=== PATIENT | female | born 1945 | race Caucasian/White ===

== ENCOUNTER → 2016-03-26 | Outpatient (CLI) | payer OTHER ==
--- NOTE | 2016-04-05 12:52 | MM ---
Reason for exam: clinical finding. Last mammogram was performed 1 year ago. History: Patient is postmenopausal. Taking estrogen for 4 years. Physical Findings: Nurse Summary: 0.5cm nodule in the right breast at 10 o'clock (nurse radha). MG 3D Diag Mammo W/Cad ANIKA Bilateral CC and MLO view(s) were taken. Prior study comparison: March 22, 2015, mammogram, performed at [facility]. February 26, 2014, mammogram, performed at [facility]. The breast tissue is heterogeneously dense. This may lower the sensitivity of mammography. Finding: There are typically benign skin calcifications. There is no discrete abnormality including area of concern. These results were verbally communicated with the patient on 04/05/16. ASSESSMENT: Incomplete: need additional imaging evaluation, BI-RAD 0 RECOMMENDATION: Ultrasound of the right breast. Manage patient on a clinical basis.
--- NOTE | 2016-04-05 12:53 | USB ---
Reason for exam: additional evaluation requested from abnormal screening. History: Patient is postmenopausal. Taking estrogen for 4 years. US Breast Limited RT Right breast ultrasound demonstrates no cystic or solid lesion seen. These results were verbally communicated with the patient on 04/05/16. ASSESSMENT: Benign, BI-RAD 2 RECOMMENDATION: Routine screening mammogram of both breasts in 1 year. Manage patient on a clinical basis.
== END | disposition home or self-care (01) ==
LOC: RADMAMWWP 14:25
PROVIDERS: ATTEND Family Medicine
DX: R92.8 Other abnormal and inconclusive findings on diagnostic imaging of breast (principal); N63 Unspecified lump in breast
CPT/HCPCS: 76642; G0204; G0279

== ENCOUNTER → 2016-08-10 | Outpatient (CLI) | payer MEDICARE, OTHER ==
--- NOTE | 2016-08-10 11:37 | US ---
EXAMINATION TYPE: US thyroid st tissue head/neck DATE OF EXAM: 08/10/2016 COMPARISON: Ultrasound 10/02/2015 CLINICAL HISTORY: E04.1 THYROID NODULE. GLAND SIZE: Right Lobe: 3.5 x 1.2 x 1.3 cm Overall Parenchyma: heterogenous Left Lobe: 4.0 x 1.9 x 1.4 cm Overall Parenchyma: heterogeneous Isthmus Thickness: 0.3 cm NODULES RIGHT: # of nodules measured on right: 0 LEFT: # of nodules measured on left: 1 1. 1.7 X 1.3 x 1.0 cm isoechoic solid nodule at the mid pole with well-defined margins; . This nod ule is taller than wide and shows intranodular vascularity. Prior size: only FNA done here, no prior US. Size on the FNA films is 1.8 x 1.1 x 1.1 cm. ISTHMUS: # of nodules measured in the isthmus: 0 Bilateral neck scanned, no evidence of lymphadenopathy. Bilaterally there is a subcentimeter cystic a guanaco. IMPRESSION: 1. Stable nodule left lobe thyroid
== END | disposition home or self-care (01) ==
LOC: RADUSWWP 10:53
PROVIDERS: ATTEND Otolaryngology
DX: E04.1 Nontoxic single thyroid nodule (principal)
CPT/HCPCS: 76536

== ENCOUNTER → 2017-09-16 | Outpatient (CLI) | payer MEDICARE, OTHER ==
[2017-09-16 11:49] LABS: Basophils % (A) 0 %; Eosinophils # (A) 0.1 k/uL (0-0.7); Eosinophils % (A) 1 %; HCT 39.9 % (34.0-46.0); HGB 13.7 gm/dL (11.4-16.0); Lymphocytes # (A) 1.4 k/uL (1.0-4.8); Lymphocytes % (A) 18 %; MCH 31.8 pg (25.0-35.0); MCHC 34.3 g/dL (31.0-37.0); MCV 92.7 fL (80.0-100.0); Mean Platelet Volume 6.5; Monocytes # (A) 0.5 k/uL (0-1.0); Monocytes % (A) 6 %; Neutrophils # (A) 5.6 k/uL (1.3-7.7); Neutrophils % (A) 73 %; Platelet Count 295 k/uL (150-450); RDW 12.9 % (11.5-15.5); WBC 7.7 k/uL (3.8-10.6)
[2017-09-16 12:37] LABS: Erythrocyte Sedimentation Rate 11 mm/hr (0-20)
== END | disposition home or self-care (01) ==
LOC: LABWHC1 10:35
PROVIDERS: ATTEND Physical Medicine & Rehabilitation
DX: M50.121 Cervical disc disorder at C4-C5 level with radiculopathy (principal); M75.42 Impingement syndrome of left shoulder; M43.16 Spondylolisthesis, lumbar region; M51.17 Intervertebral disc disorders with radiculopathy, lumbosacral region; M47.27 Other spondylosis with radiculopathy, lumbosacral region; M54.5 Low back pain
CPT/HCPCS: 36415; 85025; 85652; 86140

== ENCOUNTER → 2017-11-11 | Outpatient (CLI) | payer OTHER ==
--- NOTE | 2017-11-12 23:41 | CT ---
EXAMINATION TYPE: CT chest wo/w con DATE OF EXAM: 11/11/2017 COMPARISON: Prior chest CT October 02, 2015 and older studies. HISTORY: Lung nodules CT DLP: 511.1 mGycm. Automated Exposure Control for Dose Reduction was Utilized. TECHNIQUE: CT scan of the thorax is performed following without and with IV Contrast, patient inject ed with 80 mL of Isovue 300. FINDINGS: LUNGS: There is stable chest wall based lipoma posterolateral right upper lobe measuring 1.8 cm axial image 22 that is benign. There is however new 10 x 9 mm nodule in the superior aspect right lower lo be axial image 30. There is left basilar pleural thickening with associated left basilar linear atele ctasis or scarring now identified. No pleural effusion or pneumothorax is seen bilaterally. Tracheobr onchial tree is patent. MEDIASTINUM: There are no greater than 1 cm hilar or mediastinal lymph nodes. No significant perica rdial effusion is seen. Heart size is upper limits of normal. OTHER: Surgical clips from left-sided nephrectomy partially imaged. Gsjc-[id number]-ecrnldsz multilevel spurr ing in the thoracic spine is present. IMPRESSION: New 10 x 9 mm right-sided pulmonary nodule. Further investigation with PET CT and/or imag ing guided biopsy should be considered to exclude neoplasm.
== END | disposition home or self-care (01) ==
LOC: RADCTMAIN 14:59
DX: R91.1 Solitary pulmonary nodule (principal)
CPT/HCPCS: 82565; 84520; 71270; Q9967

== ENCOUNTER → 2017-11-11 | Outpatient (CLI) | payer MEDICARE, OTHER ==
--- NOTE | 2017-11-14 12:37 | MM ---
Reason for exam: screening (asymptomatic). Last mammogram was performed 1 year and 8 months ago. History: Patient is postmenopausal. Reductions of both breasts. Taking estrogen for 4 years. Physical Findings: A clinical breast exam by your physician is recommended on an annual basis and results should be correlated with mammographic findings. MG 3D Screening Mammo W/Cad Bilateral CC and MLO view(s) were taken. Prior study comparison: March 26, 2016, bilateral MG 3d diag mammo w/cad ANIKA. March 22, 2015, mammogram, performed at [facility]. The breast tissue is heterogeneously dense. This may lower the sensitivity of mammography. Stable benign calcifications. There is no discrete abnormality. No significant changes when compared with prior studies. ASSESSMENT: Benign, BI-RAD 2 RECOMMENDATION: Routine screening mammogram of both breasts in 1 year.
== END ==
LOC: RADMAMWWP 09:41
PROVIDERS: ATTEND Nurse Practitioner Acute Care
DX: Z12.31 Encounter for screening mammogram for malignant neoplasm of breast (principal)
CPT/HCPCS: 77063; 77067

== ENCOUNTER → 2017-12-10 | Outpatient (CLI) | payer OTHER ==
--- NOTE | 2017-12-10 13:50 | PE ---
EXAMINATION TYPE: PET CT fusion skull to thigh DATE OF EXAM: 12/10/2017 COMPARISON: Chest CT November 11, 2017 and older chest CTs from [address] abdomen and pelvis December 30, 2014. HISTORY: Solitary pulmonary nodule right lung. TECHNIQUE: Following the intravenous administration of 12.475 mCi of F-18 FDG, whole body images are performed from the skull base to the midthigh. Images are reviewed on the computer in the coronal, axial, and sagittal planes. Reconstructed rotating images are created on independent workstation and reviewed on the computer. A noncontrast CT is performed in conjunction with the PET scan. SCAN: Initial Scan FINDINGS: SKULL BASE AND NECK: No suspicious hypermetabolic uptake is seen. CHEST, MEDIASTINUM, AND HILAR REGION: There is persistent roughly 10 x 8 mm new groundglass superior aspect right lower lobe axial image 87 that is ametabolic. No suspicious hypermetabolic uptake is pre sent in the thorax. ABDOMEN AND PELVIS: No suspicious hypermetabolic uptake is seen. OSSEOUS STRUCTURES: No suspicious hypermetabolic uptake is seen. OTHER CT: Coronary artery calcification is present which is noted marker for coronary artery disease. There is redemonstration of roughly 1.8 cm benign chest wall lipoma axial image 81. Surgical clips from left-sided nephrectomy are redemonstrated. There is persistent ventral wall hernia containing fat and tiny mesenteric vessels in the midline axi al image 168. Diverticula in the sigmoid colon are redemonstrated. Some multilevel spurring in the thoracolumbar spine is present. IMPRESSION: No suspicious hypermetabolic uptake in new roughly 10 mm groundglass nodule to suggest ma lignancy. However given new finding from [address] follow-up in 6-12 months ti me to ensure nongrowth and/or reassess.
== END | disposition home or self-care (01) ==
LOC: RADPETMAIN 07:21
PROVIDERS: ATTEND Internal Medicine Critical Care Medicine
DX: R91.1 Solitary pulmonary nodule (principal)
CPT/HCPCS: 78815; A9552

== ENCOUNTER → 2017-12-29 | Outpatient (CLI) | payer MEDICARE, OTHER ==
--- NOTE | 2017-12-29 17:30 | CONS ---
CONSULTATION DATE OF SERVICE: 12/29/2017 This patient is a 72-year-old lady who has been evaluated in the sleep center for possible obstructive sleep apnea-hypopnea syndrome. HISTORY OF PRESENT ILLNESS/SLEEP-WAKE EVALUATION: Patient has had her symptoms for about one year. She snores and wakes up from sleep up to 5 times with episodes of gasping for air. Her sleep schedule on weekdays is usually from around 9:30 p.m. until 5 a.m. and on weekends from around 9:30 or 10 p.m. until 6:30 a.m. Usually she does not have any problem with falling asleep. She does not have a TV in the bedroom. She sleeps with her with snoring, possible witnessed episodes of stopped breathing during sleep. In the morning she wakes up tired, falling asleep during the day. Gregory Sleepiness Scale is significantly increased at 17. The patient feels sleepy while she is driving. She may take one nap a day around 2 or 3 p.m. Sometimes she may see dreams while closing her eyes while falling asleep. No history of sleep paralysis or cataplexy. Usually she feels restored after the naps during the day. Her snoring is very loud. No clear history of kicking at night. PAST MEDICAL HISTORY: Positive for: 1. Hypertension. 2. Hypothyroidism. 3. Neck pain. 4. Leg cramps. PAST SURGICAL HISTORY: 1. Appendectomy. 2. Total hysterectomy in 1994. 3. 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 4. Right side rotator cuff surgery. 5. Abdominal surgery for hernia repair and cosmetic reasons. MEDICATIONS: 1. Synthroid. 2. Metoprolol. 3. Hydrochlorothiazide. 4. Cymbalta. 5. Probiotics. 6. AcipHex. 7. Vitamin D. 8. Magnesium. 9. Calcium. 10.Lysine. SOCIAL HISTORY: Positive for smoking for about 35 pack/years. Quit around 20 years ago. Alcohol consumption occasional. FAMILY HISTORY: Hypertension, hyperlipidemia, arthritis, cancer, snoring, lung problems, acid reflux, thyroid problems, restless legs. REVIEW OF SYSTEMS: Multiple awakenings from sleep with gasping for air. Significant sleepiness during the day. PHYSICAL EXAMINATION: GENERAL: A pleasant lady without distress. VITAL SIGNS: BP 128/68, HR 71, RR 16, height 5 feet 0 inches, weight 156, body mass index 30.4, temperature 98.2, oxygen saturation at room air 94%. HEENT: PERRLA, EOMI. Evaluation of oropharynx showed tongue protrudes midline. Moderately low position of soft palate. NECK: Supple. No JVD. Thyroid is not palpable. Circumference 15 inches. LUNGS: Clear to percussion and to auscultation. Good air exchange. No wheezing or rhonchi. HEART: S1, S2 regular. No murmurs, gallops or rubs. ABDOMEN: Slightly obese. EXTREMITIES: No clubbing or cyanosis. ENVIRONMENTAL CONSULTANT: Awake, alert, and oriented X3. Cranial nerves 2 to 7 intact. There is no fasciculation or atrophy. noted. No focal deficits observed. IMPRESSION: 1. Snoring, multiple awakenings from sleep with gasping for air, moderately low position of soft palate, sleepiness; obstructive sleep apnea-hypopnea syndrome. 2. Significant excessive daytime sleepiness. Gregory Sleepiness Scale is 17. Questionable positive history of hypnagogic hallucinations. Differential diagnosis would include hypersomnia. 3. Hypertension. 4. Hypothyroidism. 5. History of neck pain. 6. Leg cramps. 7. Status post appendectomy. 8. Status post total hysterectomy in 1994. 9. Status post left-sided nephrectomy for kidney donation. 10.Status post right side rotator cuff surgery. 11.Status post abdominal surgery for cosmetic reasons and hernia repair. 12.Status post 35 pack/years of smoking; quit 20 years ago. PLAN: 1. Polysomnography for evaluation of patient's breathing during sleep. 2. CPAP/BiPAP titration if sleep study confirms obstructive sleep apnea-hypopnea syndrome. 3. Preferable position during sleep on the side. 4. No driving if patient feels any sleepiness. 5. I will see patient for follow up visit to explain results of testing and following plan. Thank you very much for referring this patient for consultation. Sincerely, Wan Almaguer MD, PhD, FAASM Diplomat of [employer] Aoc Director Intelligence Officer of [facility] [place] MMODL / URSZULAN: [id number] /
== END ==
LOC: SLEEP 11:23
PROVIDERS: ATTEND Internal Medicine
DX: G47.33 Obstructive sleep apnea (adult) (pediatric) (principal); I10 Essential (primary) hypertension; E03.9 Hypothyroidism, unspecified; M54.2 Cervicalgia; G47.62 Sleep related leg cramps; Z90.49 Acquired absence of other specified parts of digestive tract; Z90.710 Acquired absence of both cervix and uterus; Z90.5 Acquired absence of kidney; Z98.890 Other specified postprocedural states; Z87.891 Personal history of nicotine dependence; Z99.89 Dependence on other enabling machines and devices; Z79.899 Other long term (current) drug therapy
CPT/HCPCS: 99211

== ENCOUNTER → 2018-04-13 | Outpatient (CLI) | payer MEDICARE, OTHER ==
--- NOTE | 2018-04-13 17:23 | PN ---
PROGRESS NOTE DATE OF SERVICE: 04/13/2018 72-year-old lady has been followed in Sleep Center for treatment of obstructive sleep apnea-hypopnea syndrome. Recently, patient had polysomnogram which showed that she has obstructive sleep apnea- hypopnea syndrome with apnea-hypopnea index 9.2, and REM sleep 35.6 with oxygen saturation of 82%. When the patient had CPAP titration, subsequently was started on treatment with CPAP. She feels much better with the CPAP. No sleepiness during the day. She sleeps better during the night. Hendley Sleepiness Scale today is 2. I checked her CPAP unit usage is 26/30 nights and 22/30 nights more than 4 hours, average usage is 6.1 hour. Pressure in the range of 5-15. Most of the time pressure 12.6, leak is 6 L/minute which is normal range. Apnea-hypopnea index for the last night. 3.3, average for the last month, 7.1. MEDICATION: Synthroid, metoprolol hydrochlorothiazide, Cymbalta, AcipHex. Vitamin D. Calcium, magnesium. PHYSICAL EXAM: Patient in no distress. BP 149/71, HR 81, RR 16, weight 162, temp 97.5, oxygen saturation at room air 96%. Oropharynx low position of soft palate, Mallampati 3. Neck Supple, no JVD. Thyroid is not palpable. LUNGS Clear to percussion and to auscultation. Good air exchange. No wheezing or rhonchi. HEART S1, S2 regular. No murmurs, gallops, or rubs. ABDOMEN: Soft and nontender. Bowel sounds are present. No organomegaly appreciated. EXTREMITIES No clubbing or cyanosis. ROTOGRAVURE PRESS OPERATOR Awake, alert, and oriented X3. Cranial nerves 2 to 7 intact. There is no fasciculation or atrophy. noted. No focal deficits observed. IMPRESSION: 1. Obstructive sleep apnea-hypopnea syndrome. Patient demonstrated great compliance with treatment, benefitting from treatment. 2. Hypertension. 3. Hypothyroidism. 4. History of neck pain. 5. History of leg cramps. 6. Status post appendectomy. 7. Status post total hysterectomy. 8. Status post left kidney nephrectomy for kidney donation. 9. Status post right-sided rotator cuff surgery. 10.Status post abdominal surgery for cosmetic reasons and hernia repair. PLAN: 1. Patient will continue to use CPAP equipment every night for the whole night. 2. Sleep hygiene with regular time in bed for at least 8 hours. 3. No driving if feeling any sleepiness. 4. We will maintain all necessary CPAP prescription related to mask, tube, filters. Thank you very much for allowing me to participate in management of your patient. Sincerely, Wan Almaguer MD, PhD, FAASM Diplomat of [employer] [place] [employer] [place] [employer] Job Analyst of [facility] [place] MMODL / URSZULAN: [id number] /
== END ==
LOC: SLEEP 14:51
PROVIDERS: ATTEND Internal Medicine
DX: G47.33 Obstructive sleep apnea (adult) (pediatric) (principal); I10 Essential (primary) hypertension; E03.9 Hypothyroidism, unspecified; M54.2 Cervicalgia; G47.62 Sleep related leg cramps; Z90.89 Acquired absence of other organs; Z90.710 Acquired absence of both cervix and uterus; Z90.5 Acquired absence of kidney; Z98.890 Other specified postprocedural states; Z99.89 Dependence on other enabling machines and devices; Z79.899 Other long term (current) drug therapy

== ENCOUNTER → 2018-06-08 | Outpatient (CLI) | payer MEDICARE, OTHER ==
--- NOTE | 2018-06-08 15:06 | CT ---
EXAMINATION TYPE: CT chest w con DATE OF EXAM: 06/08/2018 COMPARISON: 11/11/2017 HISTORY: Solitary lung nodule CT DLP: 565 mGycm, Automated exposure control for dose reduction was used. CONTRAST: Performed injected with 80 mL of Isovue 300. TECHNIQUE: Axial images were obtained at 5 mm thick sections. Reconstructed images are reviewed on t AT[employer] Access computer in the coronal plane. FINDINGS: There is a 0.6 cm hypodensity within the posterior inferior left lobe thyroid. Thyroid is o therwise unremarkable. There appears to be some bulging subpleural fat in the posterior left upper lung field. This is very low density. This was present previously. No the previous nodule in the posterior right midlung is not evident. Episode 2 punctate residual den sities may remain present. Series 3 image 29. Follow-up exam in 6 months is recommended to reevaluate this finding. No enlarged mediastinal or hilar adenopathy is evident. The ascending aorta diameter at the level o f the main pulmonary artery is 2.6 cm. The main pulmonary artery diameter at the bifurcation is 2.[address] sections are obtained through the upper abdomen. There appears be a prior left nephrectomy . Some malrotation of the right kidney may be present. IMPRESSIONS: 1. Previous nodule appears to have nearly completely resolved with 2 punctate residual densities at t his prior nodule location. Follow-up exam in 6 months is recommended to reevaluate for stability. 2. Hypodensity within the inferior left lobe thyroid. This could be evaluated with ultrasound.
== END ==
LOC: RADCTMAIN 11:22
PROVIDERS: ATTEND Internal Medicine Critical Care Medicine
DX: R93.89 Abnormal findings on diagnostic imaging of other specified body structures (principal); Z88.0 Allergy status to penicillin; Z88.1 Allergy status to other antibiotic agents; Z88.2 Allergy status to sulfonamides; Z88.8 Allergy status to other drugs, medicaments and biological substances
CPT/HCPCS: 82565; 84520; 71260; 36415; Q9967

== ENCOUNTER 2018-10-28 14:54 | Emergency (ER) | payer OTHER ==
[2018-10-28] MEDS ORDERED: ASPIRIN 81 MG PO STA (15:06)
[2018-10-28] MEDS ORDERED: NITROGLYCERIN OINT 1 INCH/GM PACKET TOPICAL STA (15:06)
--- NOTE | 2018-10-28 15:09 | ED ---
General Adult HPI - General Stated complaint: CHest Pain Time Seen by Provider: 10/28/18 15:00 Source: patient, EMS, RN notes reviewed Mode of arrival: EMS Limitations: no limitations - History of Present Illness Initial comments: Patient is a pleasant 73-year-old female presenting to the emergency department with complaints of chest discomfort. Onset of symptoms was 2 days ago after running. Discomfort was fairly stable. Patient has chronic dyspnea however that is unchanged. Discomfort is described as an ache and is moderate. Discomfort did radiate towards the neck and left shoulder. Symptoms resolved with aspirin at urgent care prior to arrival. Patient previously took ibuprofen without improvement of symptoms. No associated nausea or diaphoresis. - Related Data Home Medications Medication Instructions Recorded Confirmed Ergocalciferol [Vitamin D2 50,000 unit PO Q14D 03/13/14 10/07/15 (DRISDOL)] Lysine 1,000 mg PO DAILY 01/21/15 10/02/15 Progesterone,Micronized 100 mg PO HS 01/21/15 10/07/15 [Progesterone] Metoprolol Tartrate [Lopressor] 12.5 mg PO DAILY 09/20/15 10/07/15 Levothyroxine Sodium [Synthroid] 68.5 mcg PO DAILY 10/01/15 10/07/15 Estrogen Pellet INTRADERMA Q120D 10/06/15 10/07/15 Testosterone [Testopel] 75 mg INTRADERMA Q120D 10/06/15 10/07/15 Hydrochlorothiazide [Hydrodiuril] 25 mg PO DAILY 10/28/18 10/28/18 Previous Rx's Medication Instructions Recorded Cyclobenzaprine [Flexeril] 10 mg PO TID PRN #12 tablet 10/28/18 Allergies Allergy/AdvReac Type Severity Reaction Status Date / Time cephalexin monohydrate Allergy Rash/Hives Verified 10/28/18 15:10 [From Keflex] ezetimibe [From Zetia] Allergy Rash/Hives Verified 10/28/18 15:10 hydromorphone HCl Allergy Anaphylaxis, Verified 10/28/18 15:10 [From Dilaudid] DYSPNEA ketorolac tromethamine Allergy Rash/Hives Verified 10/28/18 15:10 [From Toradol] Penicillins Allergy Rash/Hives Verified 10/28/18 15:10 Sshhwqw-Oax-Eqj Reductase Allergy MUSCLE PAIN Verified 10/28/18 15:10 Inhibitor Sulfa (Sulfonamide Allergy Rash/Hives Verified 10/28/18 15:10 Antibiotics) tomato Allergy Rash/Hives Verified 10/28/18 15:11 tree nut Allergy Rash/Hives Verified 10/28/18 15:10 VICRYL SUTURES Allergy PAIN AT Uncoded 10/28/18 15:10 INCISION SITE. Review of Systems ROS Statement: Those systems with pertinent positive or pertinent negative responses have been documented in the HPI. ROS Other: All systems not noted in ROS Statement are negative. Constitutional: Denies: fever Eyes: Denies: eye pain ENT: Denies: ear pain Respiratory: Reports: as per HPI. Denies: cough Cardiovascular: Reports: chest pain Endocrine: Denies: fatigue Gastrointestinal: Denies: abdominal pain Genitourinary: Denies: dysuria Musculoskeletal: Denies: back pain Skin: Denies: rash Neurological: Denies: weakness Past Medical History Past Medical History: GERD/Reflux, Osteoarthritis (OA), Thyroid Disorder Additional Past Medical History / Comment(s): gluten intolerance. tree nut allergy-rash History of Any Multi-Drug Resistant Organisms: None Reported Past Surgical History: Appendectomy, Hysterectomy, Orthopedic Surgery Additional Past Surgical History / Comment(s): DONATED LEFT KIDNEY. breast reduction, abdominoplasty Past Anesthesia/Blood Transfusion Reactions: No Reported Reaction Smoking Status: Former smoker General Exam Limitations: no limitations General appearance: alert, in no apparent distress Head exam: Present: atraumatic Eye exam: Present: normal appearance, PERRL ENT exam: Present: normal oropharynx Neck exam: Present: normal inspection Respiratory exam: Present: normal lung sounds bilaterally. Absent: chest wall tenderness Cardiovascular Exam: Present: regular rate, normal rhythm Expanded Peripheral pulses: 2+: Radial (R), Radial (L), Dorsalis Pedis (R), Dorsalis Pedis (L) GI/Abdominal exam: Present: soft. Absent: tenderness Extremities exam: Present: normal inspection. Absent: pedal edema, calf tenderness Neurological exam: Present: alert Psychiatric exam: Present: normal affect, normal mood Skin exam: Present: normal color Course Vital Signs 10/28/18 10/28/18 15:11 15:17 Temperature 97.6 F Pulse Rate 62 Pulse Rate [ 64 Outbound Sales Agent ] Respiratory 18 Rate Blood Pressure 178/81 O2 Sat by Pulse 96 Oximetry EKG Findings - EKG Comments: EKG Findings:: Normal sinus rhythm 62. DC 140. QRS 132. QT 468. QTC 475. Left axis. Left bundle branch block. No acute ST change. Medical Decision Making - Medical Decision Making Patient reevaluated and resting comfortably in bed. Case was discussed with Dr. Zhang who agreed with admission. Patient and family updated. Patient has plans to go to [facility] and refuses admission. Patient is updated regarding limitations and testing including limitation of troponin. Patient is made aware that heart attack has not been ruled out. Patient is also made aware that heart attack could occur in the near future. Patient is also aware there could be other causes of her chest discomfort not evident at this time. Patient does t hem straight medical decision making. Patient will leave AGAINST MEDICAL ADVICE. Patient is agreeable to close follow-up with cardiology and aspirin daily. Patient is also agreeable to go to the closest ER if symptoms reoccur. Patient requests prescription for muscle relaxer - Lab Data Result diagrams: 10/28/18 15:12 10/28/18 15:12 Lab Results 10/28/18 10/28/18 10/28/18 Range/Units 15:12 15:12 15:12 WBC 7.1 (3.8-10.6) k/uL RBC 4.53 (3.80-5.40) m/uL Hgb 13.8 (11.4-16.0) gm/dL Hct 41.3 (34.0-46.0) % MCV 91.1 (80.0-100.0) fL MCH 30.4 (25.0-35.0) pg MCHC 33.4 (31.0-37.0) g/dL RDW 14.3 (11.5-15.5) % Plt Count 272 (150-450) k/uL Neutrophils % 69 % Lymphocytes % 21 % Monocytes % 5 % Eosinophils % 3 % Basophils % 1 % Neutrophils # 4.9 (1.3-7.7) k/uL Lymphocytes # 1.5 (1.0-4.8) k/uL Monocytes # 0.4 (0-1.0) k/uL Eosinophils # 0.2 (0-0.7) k/uL Basophils # 0.1 (0-0.2) k/uL PT 9.6 (9.0-12.0) sec INR 0.9 (<1.2) APTT 26.4 (22.0-30.0) sec D-Dimer 0.28 (<0.60) mg/L FEU Sodium 141 (137-145) mmol/L Potassium 3.7 (3.5-5.1) mmol/L Chloride 105 (98-107) mmol/L Carbon Dioxide 27 (22-30) mmol/L Anion Gap 9 mmol/L BUN 27 H (7-17) mg/dL Creatinine 1.03 (0.52-1.04) mg/dL Est GFR (CKD-EPI)AfAm 63 (>60 ml/min/1.73 sqM) Est GFR (CKD-EPI)NonAf 55 (>60 ml/min/1.73 sqM) Glucose 86 (74-99) mg/dL Calcium 9.2 (8.4-10.2) mg/dL Magnesium 1.6 (1.6-2.3) mg/dL Total Bilirubin 0.3 (0.2-1.3) mg/dL AST 33 (14-36) U/L ALT 36 (9-52) U/L Alkaline Phosphatase 117 (38-126) U/L Creatine Kinase 42 (30-135) U/L Troponin I (0.000-0.034) ng/mL NT-Pro-B Natriuret Pep pg/mL Total Protein 6.6 (6.3-8.2) g/dL Albumin 4.0 (3.5-5.0) g/dL 10/28/18 10/28/18 Range/Units 15:12 15:12 WBC (3.8-10.6) k/uL RBC (3.80-5.40) m/uL Hgb (11.4-16.0) gm/dL Hct (34.0-46.0) % MCV (80.0-100.0) fL MCH (25.0-35.0) pg MCHC (31.0-37.0) g/dL RDW (11.5-15.5) % Plt Count (150-450) k/uL Neutrophils % % Lymphocytes % % Monocytes % % Eosinophils % % Basophils % % Neutrophils # (1.3-7.7) k/uL Lymphocytes # (1.0-4.8) k/uL Monocytes # (0-1.0) k/uL Eosinophils # (0-0.7) k/uL Basophils # (0-0.2) k/uL PT (9.0-12.0) sec INR (<1.2) APTT (22.0-30.0) sec D-Dimer (<0.60) mg/L FEU Sodium (137-145) mmol/L Potassium (3.5-5.1) mmol/L Chloride (98-107) mmol/L Carbon Dioxide (22-30) mmol/L Anion Gap mmol/L BUN (7-17) mg/dL Creatinine (0.52-1.04) mg/dL Est GFR (CKD-EPI)AfAm (>60 ml/min/1.73 sqM) Est GFR (CKD-EPI)NonAf (>60 ml/min/1.73 sqM) Glucose (74-99) mg/dL Calcium (8.4-10.2) mg/dL Magnesium (1.6-2.3) mg/dL Total Bilirubin (0.2-1.3) mg/dL AST (14-36) U/L ALT (9-52) U/L Alkaline Phosphatase (38-126) U/L Creatine Kinase (30-135) U/L Troponin I <0.012 (0.000-0.034) ng/mL NT-Pro-B Natriuret Pep 110 pg/mL Total Protein (6.3-8.2) g/dL Albumin (3.5-5.0) g/dL - Radiology Data Radiology results: image reviewed Disposition Clinical Impression: Chest pain Disposition: Left Against Medical Advice Instructions (If sedation given, give patient instructions): Chest Pain (ED) Additional Instructions: Aspirin daily. Please follow-up with cardiology Tuesday, number provided. Please also follow-up to primary care physician Tuesday. Return for increased pain, shortness of breath, sweating, nausea, lightheadedness, worsening symptoms or any other concerns. You are leaving AGAINST MEDICAL ADVICE. Prescription sent to [facility] Prescriptions: Cyclobenzaprine [Flexeril] 10 mg PO TID PRN #12 tablet PRN Reason: Pain Is patient prescribed a controlled substance at d/c from ED?: No Referrals: [facility],Clinic [Primary Care Provider] - 1-2 days Time of Disposition: 16:35
[2018-10-28 15:17] VITALS: RESP 18
[2018-10-28 15:27] LABS: Basophils # (A) 0.1 k/uL (0-0.2); Basophils % (A) 1 %; Eosinophils # (A) 0.2 k/uL (0-0.7); Eosinophils % (A) 3 %; HCT 41.3 % (34.0-46.0); HGB 13.8 gm/dL (11.4-16.0); Lymphocytes # (A) 1.5 k/uL (1.0-4.8); Lymphocytes % (A) 21 %; MCH 30.4 pg (25.0-35.0); MCHC 33.4 g/dL (31.0-37.0); MCV 91.1 fL (80.0-100.0); Monocytes # (A) 0.4 k/uL (0-1.0); Monocytes % (A) 5 %; Neutrophils # (A) 4.9 k/uL (1.3-7.7); Neutrophils % (A) 69 %; Platelet Count 272 k/uL (150-450); RBC 4.53 m/uL (3.80-5.40); RDW 14.3 % (11.5-15.5); WBC 7.1 k/uL (3.8-10.6)
[2018-10-28 15:36] LABS: Calcium 9.2 mg/dL (8.4-10.2); Magnesium 1.6 mg/dL (1.6-2.3); Potassium 3.7 mmol/L (3.5-5.1); Total Bilirubin 0.3 mg/dL (0.2-1.3); Total Protein 6.6 g/dL (6.3-8.2)
[2018-10-28 15:40] LABS: D-Dimer 0.28 mg/L FEU (<0.60); INR 0.9 (<1.2); Partial Thromboplastin Time 26.4 sec (22.0-30.0); Prothrombin Time 9.6 sec (9.0-12.0)
[2018-10-28] MEDS ORDERED: CYCLOBENZAPRINE 10MG STARTER 3 TAB BTL PO STA (16:40)
[2018-10-28 16:49] VITALS: BP 116/74; PULSE 74; TEMP 97.8
--- NOTE | 2018-10-28 21:51 | XR ---
EXAMINATION TYPE: XR chest 2V DATE OF EXAM: 10/28/2018 COMPARISON: CT chest 06/08/2018 HISTORY: Chest pain TECHNIQUE: Frontal and lateral views of the chest are obtained. FINDINGS: Pleural-based opacity projecting between the fifth and sixth posterior ribs on the right c orrelates with bulging subpleural fat noted on comparative chest CT. There is no focal air space opac ity, pleural effusion, or pneumothorax seen. The cardiac silhouette size is within normal limits. The osseous structures are intact. IMPRESSION: No acute cardiopulmonary process.
== END 2018-10-28 16:47 | disposition left against medical advice (07) ==
LOC: EC 14:54
DX: R07.89 Other chest pain (principal); R06.00 Dyspnea, unspecified; Z53.29 Procedure and treatment not carried out because of patient's decision for other reasons; E07.9 Disorder of thyroid, unspecified; Z79.890 Hormone replacement therapy; Z79.899 Other long term (current) drug therapy; Z88.1 Allergy status to other antibiotic agents; Z88.0 Allergy status to penicillin; Z88.2 Allergy status to sulfonamides; Z88.5 Allergy status to narcotic agent; Z88.8 Allergy status to other drugs, medicaments and biological substances; Z91.018 Allergy to other foods; Z91.048 Other nonmedicinal substance allergy status; Z87.891 Personal history of nicotine dependence; Z52.4 Kidney donor
CPT/HCPCS: 36415; 71046; 80053; 82550; 83735; 83880; 84484; 85025; 85379; 85610; 85730; 93005; 99285

== ENCOUNTER → 2018-12-19 | Outpatient (CLI) | payer MEDICARE, OTHER ==
--- NOTE | 2018-12-19 12:59 | CT ---
EXAMINATION TYPE: CT chest w con DATE OF EXAM: 12/19/2018 COMPARISON: 06/08/2018 and 12/10/2017 HISTORY: 73-year-old female Rt lung lesion, follow-up abnormal CT chest TECHNIQUE: Contiguous axial scanning of the chest after the administration of 80 mL of Isovue 300. C oronal/sagittal reconstructions performed. CT DLP: 359.3mGycm. Automatic exposure control utilized for a dose reduction. FINDINGS: The limits of normal in size without pericardial effusion. Aorta normal caliber with mild atherosclerotic arch calcifications and conventional arch vessel branc constance anatomy. No thoracic lymphadenopathy by CT size criteria. The left kidney is surgically absent and the visualized upper abdomen. Surgical clips along the left retroperitoneum. Stable 1.4 cm cyst medial left kidney. 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 The previous minimal residual nodularity posterior right mid to lower lung may be minimally increased in size from 06/08/2018 now measuring up to 4 mm. An additional 6 month follow-up is recommended. No consolidation or pleural effusion. 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 No osseous destructive process. IMPRESSION: 1. Some subpleural nodularity within the right lower lobe measuring 4 mm, minimally increased in size from 06/08/2018. A benign etiology remains favored as the nodule was larger on 12/10/2017. Additional six-month follow-up is recommended. 2. 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
== END | disposition home or self-care (01) ==
LOC: RADCTMAIN 07:51
PROVIDERS: ATTEND Internal Medicine Critical Care Medicine
DX: D17.79 Benign lipomatous neoplasm of other sites (principal); R91.8 Other nonspecific abnormal finding of lung field
CPT/HCPCS: 82565; 84520; 71260; 36415; Q9967

== ENCOUNTER → 2018-12-29 | Outpatient (CLI) | payer OTHER ==
[2018-12-29 17:36] LABS: African American GFR (CKD) 58.1 (60.0-200.0)
== END | disposition home or self-care (01) ==
LOC: LABWHC1 08:21
PROVIDERS: ATTEND Internal Medicine Critical Care Medicine
DX: R79.89 Other specified abnormal findings of blood chemistry (principal)
CPT/HCPCS: 36415; 82565; 84520

== ENCOUNTER 2019-03-05 11:43 | Emergency (ER) | payer MEDICARE, OTHER ==
[2019-03-05 11:49] VITALS: BP 147/94; PULSE 70; RESP 16; TEMP 98.1
--- NOTE | 2019-03-05 13:07 | ED ---
General Adult HPI - General Chief complaint: Skin/Abscess/Foreign Body Stated complaint: cyst Time Seen by Provider: 03/05/19 12:33 Source: patient Mode of arrival: ambulatory Limitations: no limitations - History of Present Illness Initial comments: Patient is 73-year-old female presenting to emergency Department with a chief complaint of a perineal cyst. She reports over the last week she's noticed some discomfort near the perineum and vagina. She reports somewhat of a mass does been gradually increasing in size. She states there is minimal tenderness, just discomfort. Denies anyfever or chills. Denies increased urgency frequency or dysuria. Does report subjective symptoms although they do not appear to be from that. Patient denies any pain with bowel movements. Denies hematuria, hematochezia or melena. - Related Data Home Medications Medication Instructions Recorded Confirmed Lysine 1,000 mg PO DAILY 01/21/15 10/28/18 Levothyroxine Sodium [Synthroid] 68.5 mcg PO DAILY 10/01/15 10/28/18 Estrogen Pellet 1 dose INTRADERMA Q120D 10/06/15 10/28/18 Testosterone [Testopel] 75 mg INTRADERMA Q120D 10/06/15 10/28/18 Cholecalciferol [Vitamin D3 (25 1,000 unit PO DAILY 10/28/18 10/28/18 Mcg = 1000 Iu)] Hydrochlorothiazide [Hydrodiuril] 25 mg PO DAILY 10/28/18 10/28/18 Metoprolol Tartrate [Lopressor] 12.5 mg PO DAILY 10/28/18 10/28/18 Progesterone, Micronized 200 mg PO HS 10/28/18 10/28/18 [Progesterone] Previous Rx's Medication Instructions Recorded Cyclobenzaprine [Flexeril] 10 mg PO TID PRN #12 tablet 10/28/18 Allergies Allergy/AdvReac Type Severity Reaction Status Date / Time cephalexin monohydrate Allergy Rash/Hives Verified 03/05/19 11:45 [From Keflex] hydromorphone HCl Allergy Anaphylaxis, Verified 03/05/19 11:45 [From Dilaudid] DYSPNEA ketorolac tromethamine Allergy Rash/Hives Verified 03/05/19 11:45 [From Toradol] Penicillins Allergy Rash/Hives Verified 03/05/19 11:45 Hmyloho-Prt-Soe Reductase Allergy MUSCLE PAIN Verified 03/05/19 11:45 Inhibitor Sulfa (Sulfonamide Allergy Rash/Hives Verified 03/05/19 11:45 Antibiotics) tomato Allergy Rash/Hives Verified 03/05/19 11:45 tree nut Allergy Rash/Hives Verified 03/05/19 11:45 VICRYL SUTURES Allergy PAIN AT Uncoded 03/05/19 11:45 INCISION SITE. Review of Systems ROS Statement: Those systems with pertinent positive or pertinent negative responses have been documented in the HPI. ROS Other: All systems not noted in ROS Statement are negative. Past Medical History Past Medical History: GERD/Reflux, Osteoarthritis (OA), Thyroid Disorder Additional Past Medical History / Comment(s): gluten intolerance. tree nut allergy-rash History of Any Multi-Drug Resistant Organisms: None Reported Past Surgical History: Appendectomy, Hysterectomy, Orthopedic Surgery Additional Past Surgical History / Comment(s): DONATED LEFT KIDNEY. breast reduction, abdominoplasty Past Anesthesia/Blood Transfusion Reactions: No Reported Reaction Past Psychological History: No Psychological Hx Reported Smoking Status: Former smoker Past Alcohol Use History: None Reported Past Drug Use History: None Reported General Exam Limitations: no limitations General appearance: alert, in no apparent distress Head exam: Present: atraumatic, normocephalic, normal inspection Eye exam: Present: normal appearance Pupils: Present: normal accommodation ENT exam: Present: normal exam Neck exam: Present: normal inspection, full ROM Respiratory exam: Present: normal lung sounds bilaterally Cardiovascular Exam: Present: regular rate, normal rhythm, normal heart sounds By manual exam: Present: other (Vaginal cystic mass associated to the perineum measuring approximately 1.5 cm x 3 cm. Minimal tenderness of palpation. Does not appear infected. No surrounding erythema. Does not appear to be an abs cess.) Extremities exam: Present: normal inspection, full ROM Back exam: Present: normal inspection, full ROM Neurological exam: Present: alert, oriented X3 Psychiatric exam: Present: normal affect, normal mood Skin exam: Present: warm, dry, intact, normal color Course Vital Signs 03/05/19 03/05/19 11:44 13:53 Temperature 98.1 F 98.1 F Pulse Rate 70 70 Respiratory 16 16 Rate Blood Pressure 147/94 147/94 O2 Sat by Pulse 96 96 Oximetry Medical Decision Making - Medical Decision Making Patient is 73-year-old female presenting to the emergency department with the chief complaint of a perineal mass. On exam patient does appear to have a vaginal cystic mass on the right side of the labia majora, closer to the perineum. Patient had a possible cyst removed in the region about 15 years ago. The cystic mass is only mildly tender on palpation. Does not appear erythematous nor an abscess. Case was discussed with like to examine the patient in the office. Patient has an appointment scheduled in about [address] Mattson also examined the patient and is agreement with the treatment plan.Strict return parameters were thoroughly discussed with patient was understanding and agreeable. Case discussed with physician. Disposition Clinical Impression: Vaginal cyst Disposition: HOME SELF-CARE Condition: Stable Instructions (If sedation given, give patient instructions): Bartholin Cyst (ED) Additional Instructions: Please follow up with the after school program assistant. Please return to emergency department if symptoms worsen. Is patient prescribed a controlled substance at d/c from ED?: No Referrals: Elizabeth Cross MD [Primary Care Provider] - 1-2 days Zaria Bose MD [STAFF PHYSICIAN] - 1-2 days Time of Disposition: 13:39
== END 2019-03-05 13:53 | disposition home or self-care (01) ==
LOC: EC 11:43
DX: N90.7 Vulvar cyst (principal); E07.9 Disorder of thyroid, unspecified; Z87.891 Personal history of nicotine dependence; Z88.0 Allergy status to penicillin; Z88.1 Allergy status to other antibiotic agents; Z88.2 Allergy status to sulfonamides; Z88.5 Allergy status to narcotic agent; Z88.6 Allergy status to analgesic agent; Z88.8 Allergy status to other drugs, medicaments and biological substances; Z91.018 Allergy to other foods; Z91.048 Other nonmedicinal substance allergy status; Z79.890 Hormone replacement therapy; Z79.899 Other long term (current) drug therapy
CPT/HCPCS: 99282

== ENCOUNTER 2019-07-17 12:29 | Day surgery (SDC) | payer MEDICARE, OTHER ==
[2019-07-16 09:40] VITALS: BMI 28.7
[~2019-07-17 12:29] MED LIST: CLINDAMYCIN 900 MG in DEXTROSE 5% IN WATER 50 ML IVPB ONE; DEXAMETHASONE SOD PHOSPHATE 10 MG/ML 1 ML VIAL IV ONE; LACTATED RINGERS 1,000 ML IV SCH; LIDOCAINE 1% (10MG/ML) FOR IV START INTRADERMA PRN; MIDAZOLAM 2 MG/2 ML VIAL IV PRN; ONDANSETRON 4 MG/2 ML VIAL IVP ONE
[2019-07-17 12:55] VITALS: TEMP 97.7
[2019-07-17] MEDS ORDERED: fentaNYL (PF) 50 MCG/ML 2 ML AMP IV ONE (13:24)
[2019-07-17] MEDS ORDERED: MIDAZOLAM 2 MG/2 ML VIAL IV ONE (13:24)
--- NOTE | 2019-07-17 13:46 | P.ANPRN ---
Procedure Note - Anesthesia - Nerve Block Performed Left Supraclavicular Single Time Out Performed: Yes (13:23) Date of Procedure: 07/17/19 Procedure Start Time: : Procedure Stop Time: : Location of Patient: PreOp Indication: Acute Post-Operative Pain, Requested by Surgeon Specifically requested for management of pain by DrCrys: Rajendra Healy Sedation Type: Sedate with meaningful contact maintained Preparation: Sterile Prep Position: Supine Catheter: None Needle Types: Pajunk Needle Gauge: 21 Ultrasound used to visualize needle placement: Yes Ultrasound used to observe medication spread: Yes Injectate: 0.5% Ropivacaine (see comment for volume) Adjunct: Epinephrine (see comment for dilution ratio) Blood Aspirated: No Pain Paresthesia on Injection Noted: No Resistance on Injection: Normal Image Stored and Saved: Yes Events: Other (see comment) (15ml of 0.5% Ropivacaine and 5 ml of 1% lidocaone with 1:100,000 epinephrine)
[2019-07-17] MEDS ORDERED: MIDAZOLAM 2 MG/2 ML VIAL ONE (14:09)
[2019-07-17] MEDS ORDERED: ROPIVACAINE 5 MG/ML 30 ML VIAL ONE (14:09)
[2019-07-17] MEDS ORDERED: LIDOCAINE 1% INJ 10MG/ML (20 ML MDV) ONE (14:09)
[2019-07-17] MEDS ORDERED: PROPOFOL 10 MG/ML 20 ML VIAL IV ONE (14:09)
[2019-07-17] MEDS ORDERED: LIDOCAINE 1%-EPI 1:100,000 20 ML VIAL ONE (14:09)
[2019-07-17] MEDS ORDERED: LIDOCAINE 2% INJ 20 MG/ML SQ ONE (14:21)
[2019-07-17] MEDS ORDERED: methylPREDNISolone ACETATE 40 MG/ML 1 ML VIAL MISCELLANE ONE (14:21)
[2019-07-17] MEDS ORDERED: BUPIVACAINE (PF) 0.5% 30 ML VIAL SQ ONE (14:21)
[2019-07-17] MEDS ORDERED: LACTATED RINGERS 1,000 ML IV ONE (15:40)
[2019-07-17 16:04] VITALS: RESP 16
[2019-07-17 16:29] VITALS: BP 114/58; PULSE 65
--- NOTE | 2019-07-18 12:48 | OP ---
OPERATIVE REPORT DATE OF SERVICE: 07/17/2019. PREOPERATIVE DIAGNOSES: 1. Basal joint arthritis, left thumb. 2. Osteoarthritis, PIP joint, left ring finger. 3. Recurrent carpal tunnel syndrome, left wrist. 4. Left middle trigger finger with possible flexor tendon sheath ganglion cyst. POSTOPERATIVE DIAGNOSES: 1. Basal joint arthritis, left thumb. 2. Osteoarthritis, PIP joint, left ring finger. 3. Recurrent carpal tunnel syndrome, left wrist. 4. Left middle trigger finger with flexor tendon sheath ganglion cyst. PROCEDURES: 1. Excision of trapezium, ligament reconstruction, tendon interposition arthroplasty using flexor carpi radialis, left thumb. 2. Proximal interphalangeal joint silastic arthroplasty, left ring finger. 3. Redo carpal tunnel release with neurolysis in the median nerve. 4. Left middle trigger finger release with evacuation of ganglion cyst. GROSS PATHOLOGY: 1. Regarding the trigger finger, there was evidence of mucin supporting a flexor tendon sheath ganglion cyst. The cyst was ruptured and evacuated. Regarding the PIP joint, arthroplasty of the ring finger, a size 1. Naranjo type prosthesis from [employer] fit mostly satisfactorily. OFFICER LIEUTENANT: Cody Figueroa. PROCEDURAL DESCRIPTION: The patient was taken to the Operative Suite where a sedation was administered by the Department of Anesthesia. I then performed a local injection along the line of the incision with a combination of Marcaine and Xylocaine both without epinephrine. The hand was then prepped and draped in the usual manner. The arm was elevated, exsanguinated and the cuff was inflated to 250 mm of mercury. A longitudinal incision was made along the ring finger ray distal to the wrist crease. Dissection was taken through the skin and subcutaneous tissue, initially sharp through the skin and then blunt through the subcutaneous tissue to ensure protection of any potential terminal transverse branches of the palmar cutaneous nerve. The palmar fascia was then incised under direct vision longitudinally exposing the transverse carpal ligament. The transverse carpal ligament also was incised under direct vision. The dissection was then continued proximally beneath the skin under direct vision to release the distal forearm fascia. The median nerve was then reflected free of tenosynovium to ensure no adhesions. A transverse incision was made distal palmar skin crease to the base of the middle finger. The A1 glenda was released under direct vision. The flexor tendons were retracted from the wound to ensure no adhesions. Attention was then turned to the ring finger. A dorsal longitudinal C-shaped incision was made over the PIP joint of the ring finger. Skin flap was dissected. Electrocautery was used for hemostasis as needed. The extensor mechanism and capsule were incised longitudinally. A complete release of the collateral ligaments was performed approximately and the joint was fully exposed. A rongeur was used to remove bone spurs and all that awl was used to establish the intramedullary canal in both the proximal and middle phalanges. A Naranjo bur was then used to enlarge the canals followed by use of a broaches to determine the appropriate size. A size 1 trial was noted to fit most satisfactorily. The wound was thoroughly irrigated and using no-touch technique, the real prosthesis was inserted with satisfactory alignment and stability. The capsule and extensor mechanism were closed with 4.0 PDS suture. The tourniquet was then released. Hemostasis acquired with pressure electrocautery all wounds. They were all closed with 5-0 nylon suture. Soft bulky dressing was applied supporting the base of the thumb with splinting. The ulnar 3 fingers were encompassed in a bulky dressing to keep the ring finger in alignment and allow for some early gentle range of motion. The patient was then taken to recovery room in satisfactory condition. MMODL / IJN: [id number] / JOHNNY
--- NOTE | 2019-07-19 03:45 | CDI ---
Date: 07/19/2019 CDS/Del[employer] Stock Clerk Name: Lela Howard Phone: If you have question, contact Annie De La Fuente, Therapist Occupational at [phone] M-F 8:30 am to 6pm. Patient Name: Serina Fish Admit Date: 07/17/2019 Discharge Date: 07/17/2019 ATTENTION: The Clinical Documentation Specialists (CDI) and [facility] Coding Staff appreciate your assistance in clarifying documentation. Please respond to the clarification below the line at the bottom and electronically sign. The CDI & [facility] Coding staff will review the response and follow-up if needed. Please note: Queries are made part of the Legal Health Record. If you have any questions, please contact the author of this message via ITS or call the Therapist Occupational. Dear Niraj Ortez, As per your Operative note header - Thumb arthroplasty, Ring finger arthroplasty, Carpal tunnel release and ganglion cyst evacuation was performed. But in the given operative note the documentation for [facility] Thumb arthroplasty was missing. Please provide additional information. Advanced arthritis basal joint ([facility] Joint) right thumb Thank you for your kind consideration MTDD
== END 2019-07-17 16:57 | disposition home or self-care (01) ==
LOC: OR 12:29
PROVIDERS: ATTEND Orthopaedic Surgery Hand Surgery
DX: M18.12 Unilateral primary osteoarthritis of first carpometacarpal joint, left hand (principal); M19.042 Primary osteoarthritis, left hand; M19.032 Primary osteoarthritis, left wrist; G56.02 Carpal tunnel syndrome, left upper limb; M67.442 Ganglion, left hand; M65.332 Trigger finger, left middle finger; E03.9 Hypothyroidism, unspecified; E78.5 Hyperlipidemia, unspecified; Z97.3 Presence of spectacles and contact lenses; Z87.11 Personal history of peptic ulcer disease; I10 Essential (primary) hypertension; Z88.0 Allergy status to penicillin; Z88.2 Allergy status to sulfonamides; Z91.048 Other nonmedicinal substance allergy status; Z79.890 Hormone replacement therapy; Z79.899 Other long term (current) drug therapy; Z88.1 Allergy status to other antibiotic agents; Z88.8 Allergy status to other drugs, medicaments and biological substances; Z88.5 Allergy status to narcotic agent; Z88.6 Allergy status to analgesic agent; Z91.018 Allergy to other foods; Z90.710 Acquired absence of both cervix and uterus; Z96.691 Finger-joint replacement of right hand; Z90.5 Acquired absence of kidney; Z98.890 Other specified postprocedural states; Z87.891 Personal history of nicotine dependence
CPT/HCPCS: 26536; 64721; 26160; 64415; 76942; 87635; C1713; J2001 ×2; J2250; J1030; J1100; J2405; J3010; J2795; J2704

== ENCOUNTER → 2019-08-01 | Outpatient (CLI) | payer MEDICARE, OTHER ==
--- NOTE | 2019-08-01 13:45 | CT ---
EXAMINATION TYPE: CT chest w con DATE OF EXAM: 08/01/2019 COMPARISON: Chest CT December 19, 2018 and older CTs HISTORY: follow up lung nodule CT DLP: 245.8 mGycm. Automated Exposure Control for Dose Reduction was Utilized. TECHNIQUE: CT scan of the thorax is performed following with IV Contrast, patient injected with 80 m L of Isovue 300. FINDINGS: LUNGS: Stable extrapleural or less likely pleural-based fat lesion between the right posterior fifth and sixth ribs axial image 23 presumed benign. Some adjacent linear scarring immediate inferior to th is remains present and stable. Posterior to this in the superior aspect right lower lobe there is mor e prominent 7 x 5 mm nodule or nodular consolidation axial image 31 and coronal image 78 extending to the pleural surface inferiorly posteriorly similar to prior. No new greater than 4 mm nodules or mas ses bilaterally. No pleural effusion or pneumothorax seen. MEDIASTINUM: There are no greater than 1 cm hilar or mediastinal lymph nodes. No cardiomegaly or pe ricardial effusion is seen. 4 vessel origin from aortic arch which is normal variant. Stable subcent imeter posterior left thyroid hypodense nodule axial image 7. OTHER: Slight scoliotic curvature. Surgical clips from left-sided nephrectomy partially imaged. IMPRESSION: Area of concern tiny nodular density posterior superior aspect right lower lobe is more p rominent from prior study measuring 7 x 5 mm. Because of this follow-up CT in 6-12 months time is adv ised to reassess as per Fleischner Society recommendations. Lesion still too small to assess via PET/ CT or sampling.
== END | disposition home or self-care (01) ==
LOC: RADCTMAIN 11:03
PROVIDERS: ATTEND Internal Medicine Critical Care Medicine
DX: R91.1 Solitary pulmonary nodule (principal)
CPT/HCPCS: 82565; 84520; 71260; 36415; Q9967

== ENCOUNTER → 2019-09-06 | Outpatient (CLI) | payer MEDICARE, OTHER ==
--- NOTE | 2019-09-06 21:06 | SFUN ---
SLEEP CENTER FOLLOW UP NOTE This patient is a 73-year-old lady who has been followed in Sleep Center for treatment of obstructive sleep apnea-hypopnea syndrome. For some period of time the patient was not able to use her CPAP equipment because she was not able to get new supplies because of the coronavirus situation. Otherwise, when she used her machine she felt much better and felt well during the day. Her previous [place] Sleepiness Scale was 2; now her [place] Sleepiness Scale is 15. I checked her CPAP unit. Range of the pressure is 5 to 15, average pressure 11.7, average usage 4.1 hour per night. Leak 5 L/minute, which is in normal range. Apnea- hypopnea index 3.6, which is normal. MEDICATIONS: Levothyroxine, metoprolol, hydrochlorothiazide, AcipHex, Repatha. PHYSICAL EXAMINATION: GENERAL: A pleasant patient in no distress. VITAL SIGNS: BP 100/63, HR 76, RR 15, height 5 feet 0 inch, weight 157, BMI 30.6, temperature 97.9, oxygen saturation at room air 95%. HEENT: PERRLA, EOMI. Evaluation of oropharynx showed tongue protrudes midline. Low position of soft palate. Mallampati III. NECK: Supple. No JVD. Thyroid is not palpable. LUNGS: Clear to percussion and to auscultation. Good air exchange. No wheezing or rhonchi. HEART: S1, S2 regular. No murmurs, gallops or rubs. ABDOMEN: Soft. No tenderness. EXTREMITIES: No clubbing or cyanosis. RESIDENCE LEASING AGENT: Awake, alert, and oriented X3. Cranial nerves 2 to 7 intact. There is no fasciculation or atrophy. noted. No focal deficits observed. IMPRESSION: 1. Obstructive sleep apnea-hypopnea syndrome. 2. Hypothyroidism. 3. Hypertension. 4. History of neck problems with pain. 5. History of leg cramps. 6. Status post appendectomy. 7. Status post total hysterectomy. 8. Status post left kidney nephrectomy for kidney donation. 9. Status post right-sided rotator cuff surgery. 10.Status post abdominal surgery for cosmetic reasons and hernia repair. PLAN: Prescription for all necessary CPAP supplies, including mask -- patient is using a [employer] [id number] large-sized mask with small-sized head gear. Also filters, heated tubing. Thank you very much for allowing me to participate in the management of your patient. Sincerely, Wan Almaguer MD, PhD, FAASM Diplomat of [place] [employer] [place] [employer] General Ophthalmologist of [facility] [place] VIC / CECELIA: [id number] /
== END | disposition home or self-care (01) ==
LOC: SLEEP 15:51
PROVIDERS: ATTEND Internal Medicine
DX: G47.33 Obstructive sleep apnea (adult) (pediatric) (principal); E03.9 Hypothyroidism, unspecified; I10 Essential (primary) hypertension; Z87.39 Personal history of other diseases of the musculoskeletal system and connective tissue; Z90.49 Acquired absence of other specified parts of digestive tract; Z90.710 Acquired absence of both cervix and uterus; Z90.5 Acquired absence of kidney; Z98.890 Other specified postprocedural states; Z79.899 Other long term (current) drug therapy

== ENCOUNTER → 2019-10-30 | Outpatient (CLI) | payer MEDICARE, OTHER | END | disposition home or self-care (01) | LOC: CPPFTMAIN 12:06 | PROVIDERS: ATTEND Internal Medicine Critical Care Medicine | DX: J45.909 Unspecified asthma, uncomplicated (principal); R91.1 Solitary pulmonary nodule | CPT/HCPCS: 94060; 94726; 94729 ==

== ENCOUNTER → 2020-02-12 | Outpatient (CLI) | payer MEDICARE, OTHER ==
--- NOTE | 2020-02-13 11:11 | MM ---
Reason for exam: screening (asymptomatic). Last mammogram was performed 1 year and 1 month ago. History: Patient is postmenopausal. Reductions of both breasts. Taking estrogen for 7 years. Physical Findings: A clinical breast exam by your physician is recommended on an annual basis and results should be correlated with mammographic findings. MG 3D Screening Mammo W/Cad Bilateral CC and MLO view(s) were taken. Prior study comparison: December 29, 2018, bilateral MG screening mammo w CAD. November 11, 2017, bilateral MG 3d screening mammo w/cad. The breast tissue is heterogeneously dense. This may lower the sensitivity of mammography. New spiculated mass 1.5cm in size 12 o'clock position left breast. ASSESSMENT: Incomplete: need additional imaging evaluation, BI-RAD 0 RECOMMENDATION: Special view mammogram and ultrasound of the right breast. [facility] will attempt to contact patient to return for supplemental views and ultrasound.
== END | disposition home or self-care (01) ==
LOC: RADMAMWWP 13:33
PROVIDERS: ATTEND Family Medicine
DX: Z12.31 Encounter for screening mammogram for malignant neoplasm of breast (principal); Z88.0 Allergy status to penicillin; Z88.2 Allergy status to sulfonamides; Z88.5 Allergy status to narcotic agent; Z88.8 Allergy status to other drugs, medicaments and biological substances; Z91.048 Other nonmedicinal substance allergy status
CPT/HCPCS: 77063; 77067

== ENCOUNTER → 2020-02-15 | Outpatient (CLI) | payer MEDICARE, OTHER ==
--- NOTE | 2020-02-15 09:52 | MM ---
Reason for exam: additional evaluation requested from abnormal screening. Last mammogram was performed less than 1 month ago. History: Patient is postmenopausal. Family history of breast cancer in maternal aunt. Reductions of both breasts, 2015. Taking estrogen for 7 years. Physical Findings: Nurse did not find any significant physical abnormalities on exam. MG 3D Work Up W/Cad RT Spot compression CC, spot compression MLO, and ML view(s) were taken of the right breast. Prior study comparison: February 12, 2020, bilateral MG 3d screening mammo w/cad. December 29, 2018, bilateral MG screening mammo w CAD. There are scattered fibroglandular densities. Finding: There is an intermediate concern, suspicious high density, spiculated architectural distortion located 3 cm from the nipple in the 9 o'clock upper outer quadrant, middle position of the right breast. New finding since December 29, 2018. These results were verbally communicated with the patient and result sheet given to the patient on 02/15/20. ASSESSMENT: Incomplete: need additional imaging evaluation, BI-RAD 0 RECOMMENDATION: Ultrasound of the right breast.
--- NOTE | 2020-02-15 09:55 | USB ---
Reason for exam: additional evaluation requested from abnormal screening. History: Patient is postmenopausal. Family history of breast cancer in maternal aunt. Reductions of both breasts, 2015. Taking estrogen for 7 years. US Breast Workup Limited RT Right limited breast ultrasound including focal area of concern, retroareolar and axilla demonstrates a 1.2 x 1.0 x 1.3cm irregular, lobular, hypoechoic lesion at 10 o'clock and a 1.8 x 2.5 x 0.9cm lymph node at the axilla. These results were verbally communicated with the patient and result sheet given to the patient on 02/15/20. ASSESSMENT: Highly suggestive of malignancy, BI-RAD 5 RECOMMENDATION: Ultrasound core biopsy of the right breast. Called Dr. Gonzalez's office with mammographic findings and has scheduled an appointment for the patient for 03/26/19 at 4:[address] Sharp. Biopsy scheduled for 02/18/20 at 10:30. PRELIMINARY REPORT CALLED AND FAXED TO DR. SHARP ON 02/15/20.
== END | disposition home or self-care (01) ==
LOC: RADMAMWWP 07:00
PROVIDERS: ATTEND Family Medicine
DX: R92.8 Other abnormal and inconclusive findings on diagnostic imaging of breast (principal)
CPT/HCPCS: 77065; 76642; G0279; 77061

== ENCOUNTER → 2020-02-18 | Day surgery (SDC) | payer MEDICARE, OTHER ==
[2020-02-18 10:01] VITALS: RESP 16
[2020-02-18 11:15] VITALS: BP 124/63; PULSE 62; TEMP 97.4
--- NOTE | 2020-02-18 11:31 | USB ---
EXAMINATION TYPE: US biopsy breast VAD RT, MG diagnostic mammo RT wo CAD DATE OF EXAM: 02/18/2020 CLINICAL HISTORY: R92.8 abn mammo. TECHNIQUE: Ultrasound guided core biopsy of right 10:00 breast. COMPARISON: NONE FINDINGS: The procedure of ultrasound guided core biopsy was explained to the patient. Benefits, alternatives, and risks were discussed. An informed consent was then obtained. The patient was placed in supine positioning for imaging and for the procedure. The overlying skin was prepped and draped in usual sterile fashion. Lidocaine buffered with bicarbonate was used as anesthetic into the skin and subcutaneous tissue up to area of concern in the right 10:00 breast. A pedrito was made with surgical scalpel. Under ultrasound guidance, a 12-gauge vacuum assisted biopsy gun device was used to obtain 5 core samples. Following this, a biopsy clip was left in lesion. Postprocedural mammogram demonstrates appropriate clip placement. The patient tolerated the procedure well without any immediate complication. The patient was kept in the radiology department for short stay after the procedure and then discharged home in stable condition. IMPRESSION: Successful, uncomplicated ultrasound guided core biopsy of area of concern in the right 10:00 breast, full pathology results to follow. Pathology Results: Malignant RIGHT BREAST, 10:00, ULTRASOUND GUIDED CORE BIOPSY: Invasive moderately differentiated ductal carcinoma (Grade 2). See Surgical Pathology Cancer Case Summary. Recommendation Surgical consult of the right breast. JOHNNY
== END ==
LOC: RADUSWWP 09:35
PROVIDERS: ATTEND Surgery
DX: C50.411 Malignant neoplasm of upper-outer quadrant of right female breast (principal); Z88.5 Allergy status to narcotic agent; Z88.6 Allergy status to analgesic agent; Z88.1 Allergy status to other antibiotic agents; Z88.0 Allergy status to penicillin; Z88.2 Allergy status to sulfonamides; Z88.8 Allergy status to other drugs, medicaments and biological substances; Z91.018 Allergy to other foods; Z91.09 Other allergy status, other than to drugs and biological substances
CPT/HCPCS: 19083; 88305; 88342; 88341; 77065; A4648; J2001

== ENCOUNTER 2020-03-04 08:01 | Day surgery (SDC) | payer MEDICARE, OTHER ==
[2020-03-04 08:41] VITALS: BP 117/80; PULSE 68; RESP 16; TEMP 97.3
--- NOTE | 2020-03-04 09:51 | US ---
ULTRASOUND GUIDED BIOPSY RIGHT AXILLA LYMPH NODE: CLINICAL HISTORY: Right axilla lymph node COMPARISON: 02/18/2020 FINDINGS: Preliminary imaging demonstrated no sizable lymph node for percutaneous biopsy. IMPRESSION: 1. No sizable lymph node could be visualized for percutaneous biopsy.
--- NOTE | 2020-03-04 12:07 | US ---
EXAMINATION TYPE: US thyroid st tissue head/neck DATE OF EXAM: 03/04/2020 COMPARISON: 08/10/2016 CLINICAL HISTORY: E04.1 Thyroid nodule. Hx thyroid nodule. Patient states having a palpable superior right anterior neck. GLAND SIZE: Right Lobe: 3.2 x 1.5 x 1.2 cm Overall Parenchyma: heterogenous Left Lobe: 3.5 x 1.4 x 1.7 cm Overall Parenchyma: heterogeneous Isthmus Thickness: 0.5 cm NODULES RIGHT: # of nodules measured on right: 1 1. 0.4 X 0.5 x 0.3 cm cystic or almost completely cystic, anechoic nodule, which is wider than tall , with smooth margins, without echogenic foci. Prior size: no prior LEFT: # of nodules measured on left: 1 1. 1.8 X 1.4 x 1.4 cm solid or almost completely solid, hyperechoic nodule, which is wide as tall, with smooth margins, without echogenic foci. Prior size: 1.7 x 1.3 x 1.0 cm ISTHMUS: # of nodules measured in the isthmus: 0 Bilateral neck scanned, no evidence of lymphadenopathy. Patients area of concern scanned. Submandibular gland visualized. Contralateral image taken. IMPRESSION: Stable 1.8 cm left thyroid nodule with no significant interval change in size relative to the previou s exam. New sub-5 mm nodule right thyroid to small too characterize.
== END 2020-03-04 09:30 | disposition home or self-care (01) ==
LOC: RADPROMAIN 08:01
PROVIDERS: ATTEND Surgery
DX: E04.1 Nontoxic single thyroid nodule (principal); C50.919 Malignant neoplasm of unspecified site of unspecified female breast; N90.89 Other specified noninflammatory disorders of vulva and perineum; E03.9 Hypothyroidism, unspecified; K21.9 Gastro-esophageal reflux disease without esophagitis; M19.90 Unspecified osteoarthritis, unspecified site; Z17.1 Estrogen receptor negative status [ER-]; Z98.890 Other specified postprocedural states; Z88.5 Allergy status to narcotic agent; Z88.6 Allergy status to analgesic agent; Z91.018 Allergy to other foods; Z88.8 Allergy status to other drugs, medicaments and biological substances; Z88.2 Allergy status to sulfonamides; Z91.09 Other allergy status, other than to drugs and biological substances; Z88.0 Allergy status to penicillin; Z88.1 Allergy status to other antibiotic agents; Z79.899 Other long term (current) drug therapy; Z79.1 Long term (current) use of non-steroidal anti-inflammatories (NSAID); Z79.890 Hormone replacement therapy; Z90.710 Acquired absence of both cervix and uterus; Z52.4 Kidney donor; Z90.49 Acquired absence of other specified parts of digestive tract; Z87.891 Personal history of nicotine dependence; Z80.3 Family history of malignant neoplasm of breast; Z80.8 Family history of malignant neoplasm of other organs or systems; Z80.0 Family history of malignant neoplasm of digestive organs; Z80.2 Family history of malignant neoplasm of other respiratory and intrathoracic organs; Z80.49 Family history of malignant neoplasm of other genital organs; Z80.1 Family history of malignant neoplasm of trachea, bronchus and lung; Z80.7 Family history of other malignant neoplasms of lymphoid, hematopoietic and related tissues
CPT/HCPCS: 76536

== ENCOUNTER → 2020-03-06 | Outpatient (CLI) | payer MEDICARE, OTHER ==
--- NOTE | 2020-03-08 13:39 | CT ---
EXAMINATION TYPE: CT ChestAbdPelvis w con DATE OF EXAM: 03/06/2020 COMPARISON: 08/01/2019, 12/10/2017, 11/11/2017, 10/02/2015 HISTORY: 74-year-old female Lung nodule follow up, recent diagnosis of breast CA TECHNIQUE: Contiguous axial scanning of the chest, abdomen, and pelvis performed with IV Contrast, pa tient injected with 80 mL of Isovue 300. Delayed images through the kidneys were obtained. Coronal/sa gittal reconstructions performed. CT DLP: 987.3 mGycm Automated exposure control for dose reduction was used. FINDINGS: CHEST: Heart upper limits of normal in size without pericardial effusion. Aorta normal caliber with conventional arch vessel branching anatomy. 9 mm hypodense nodule inferior left thyroid lobe is unchanged. Microclip within the right breast from recent biopsy. Underlying mass is not as well demonstrated by CT. However, no thoracic lymphadenopathy by CT size criteria. Stable 3.2 x 1.9 cm fat density lesion within the fifth posterior right intercostal space back to at least 2016. Subpleural poorly defined nodularity posterior right midlung measures approximately 1 cm. There may b e slight fullness as compared to the 08/01/2019 but no significant change in size. We note that the are a is smaller and less defined from 11/11/2017 but completely new from 2016. A benign etiology remains suspected. Additional precautionary one-year follow-up is recommended. No consolidation or pleural effusion. ABDOMEN: Small hiatal hernia. No focal liver lesion or biliary duct dilatation. There is a 3.5 cm diverticulum of the second portion of the duodenum projecting into the pancreatic head region. Portal venous syst em is patent. Gallbladder, adrenal glands, spleen, pancreas within normal limits. Right kidney is slightly malrotated. There is a 1.4 cm cortical lesion medially, mainly larger from 2 018 where it measured 1.2 cm. Left kidney is surgically absent. Clips are present in the surgical bed. The nephrectomy site remains clear. No dilated small bowel, free fluid, or free air. No mesenteric or retroperitoneal lymphadenopathy. Oral contrast has progressed to the splenic flexure of the colon. There is mild stool burden. Left he micolonic diverticulosis, greatest in the sigmoid colon. No pericolonic inflammatory change. Small fatty umbilical hernia. There seem to have been some type of surgical change along the anterior abdominal wall that can be correlated clinically. PELVIS: Bladder under distended. There is bulging laxity of the levator and eye musculature. Uterus surgicall y absent. Prominent but nonenlarged 8 mm bilateral external iliac chain lymph nodes on either side. P elvic phlebolith. A 1.4 cm nodule within the left pelvic sidewall remains unchanged from 12/10/2017 s uggesting a benign etiology, possible ovary. This can be correlated clinically. BONES: Mild degenerative change of both hips. Bilateral L5 pars defects with grade 1 anterolisthesis at L5-S 1 and associated advanced degenerative disc disease. Moderate to advanced degenerative disc disease L 3-L4. No osseous destructive process is identified. IMPRESSION: 1. MICROCLIP FROM RECENT RIGHT BREAST BIOPSY AT THE SITE OF PATH-PROVEN BREAST CANCER. NO SPECIFIC FI NDINGS OF METASTATIC DISEASE IN THE CHEST, ABDOMEN, OR PELVIS. 2. The 1 cm subpleural pulmonary nodule posterior right midlung has slight fullness as compared to e 08/28/2019 exam but remains overall stable in size. Again, we note that it is overall smaller from but new from 10/02/2015. A benign etiology is favored. Continued one-year follow-up recommende d. 3. Fat density lesion measuring 3.2 x 1.9 cm within the posterior right fifth intercostal space, poss ible lipoma, remains unchanged back to at least 2016. 4. Incidental: Small hiatal hernia, status post left nephrectomy, left-sided clonic diverticulosis gr eatest in the sigmoid colon, small fatty umbilical hernia, pelvic floor relaxation, and bilateral L5 pars defects with grade 1 anterolisthesis at L5-S1.
== END | disposition home or self-care (01) ==
LOC: RADCTMAIN 11:37
PROVIDERS: ATTEND Surgery
DX: C50.919 Malignant neoplasm of unspecified site of unspecified female breast (principal); R91.1 Solitary pulmonary nodule; R91.8 Other nonspecific abnormal finding of lung field
CPT/HCPCS: 82565; 84520; 71260; 74177; 36415; Q9967

== ENCOUNTER 2020-03-18 10:36 | Day surgery (SDC) | payer MEDICARE, OTHER ==
[2020-03-14 10:34] VITALS: BMI 30.2
[~2020-03-18 10:36] MED LIST changes: +ACETAMINOPHEN TAB 500 MG TAB PO PRN; -CLINDAMYCIN 900 MG in DEXTROSE 5% IN WATER 50 ML IVPB ONE; -DEXAMETHASONE SOD PHOSPHATE 10 MG/ML 1 ML VIAL IV ONE; +DEXAMETHASONE SOD PHOSPHATE 4 MG/ML 1 ML VIAL IV ONE; +HEPARIN SODIUM,PORCINE 5,000 UNIT/ML 1 ML VIAL SQ PRN; +Pre Op ABX Message 1 EACH MISC MISCELLANE ONE; +fentaNYL (PF) 50 MCG/ML 2 ML AMP IV PRN
[2020-03-18 11:37] VITALS: TEMP 98.6
[2020-03-18] MEDS ORDERED: ACETAMINOPHEN TAB 500 MG TAB ONE (12:05)
[2020-03-18] MEDS ORDERED: PROPOFOL 10 MG/ML 20 ML VIAL IV ONE (12:10)
[2020-03-18] MEDS ORDERED: fentaNYL (PF) 50 MCG/ML 2 ML AMP ONE (12:10)
[2020-03-18] MEDS ORDERED: MIDAZOLAM 2 MG/2 ML VIAL ONE (12:10)
[2020-03-18 12:11] LABS: Basophils # (A) 0.1 k/uL (0-0.2); Basophils % (A) 1 %; Eosinophils # (A) 0.2 k/uL (0-0.7); Eosinophils % (A) 2 %; HCT 43.8 % (34.0-46.0); Lymphocytes # (A) 1.5 k/uL (1.0-4.8); Lymphocytes % (A) 19 %; MCH 31.3 pg (25.0-35.0); MCHC 34.2 g/dL (31.0-37.0); MCV 91.7 fL (80.0-100.0); Mean Platelet Volume 6.8; Monocytes # (A) 0.5 k/uL (0-1.0); Monocytes % (A) 6 %; Neutrophils # (A) 5.8 k/uL (1.3-7.7); Neutrophils % (A) 71 %; Platelet Count 275 k/uL (150-450); RBC 4.77 m/uL (3.80-5.40); RDW 12.7 % (11.5-15.5); WBC 8.1 k/uL (3.8-10.6)
[2020-03-18] MEDS ORDERED: SODIUM CHLORIDE 0.9% 50 ML with ceFAZolin 2,000 MG IV ONE ×2 (12:12)
[2020-03-18 12:21] LABS: Albumin 4.4 g/dL (3.5-5.0); Calcium 9.4 mg/dL (8.4-10.2); Potassium 3.9 mmol/L (3.5-5.1); Total Bilirubin 0.7 mg/dL (0.2-1.3)
--- NOTE | 2020-03-18 12:22 | P.GSHP ---
History of Present Illness H&P Date: 03/18/20 Chief Complaint: Right breast cancer Patient here today after recent diagnosis of right breast cancer. Cancer was triple negative. She was seen at [facility]. She was advised to begin neoadjuvant chemotherapy. That is to start later this week. Here today for Por t-A-Cath placement. Past Medical History Past Medical History: Cancer, Deep Vein Thrombosis (DVT), GERD/Reflux, Hyperlipidemia, Hypertension, Osteoarthritis (OA), Pulmonary Embolus (PE), Thyroid Disorder Additional Past Medical History / Comment(s): gluten intolerance, DVT in leg @age of 12, resulted in PE, Rt breast cancer diagnosis- Jan 2020. History of Any Multi-Drug Resistant Organisms: None Reported Past Surgical History: Appendectomy, Hysterectomy, Orthopedic Surgery Additional Past Surgical History / Comment(s): DONATED LEFT KIDNEY. breast reduction, abdominoplasty, right rotator cuff repair, right hand thumb arthroplasty, cataracts removed, Rt breast biopsy Past Anesthesia/Blood Transfusion Reactions: No Reported Reaction Smoking Status: Former smoker - Past Family History Mother Family Medical History: Cancer Additional Family Medical History / Comment(s): Non Hodgkins Lymphoma Medications and Allergies Home Medications Medication Instructions Recorded Confirmed Type Lysine 500 mg PO DAILY 01/21/15 03/14/20 History Levothyroxine Sodium [Synthroid] 68.5 mcg PO DAILY 10/01/15 03/14/20 History Cholecalciferol [Vitamin D3 (25 1,000 unit PO DAILY 10/28/18 03/14/20 History Mcg = 1000 Iu)] hydroCHLOROthiazide [Hydrodiuril] 25 mg PO DAILY 10/28/18 03/14/20 History Calcium Carbonate [Calcium] 600 mg PO HS 07/16/19 03/14/20 History Evolocumab [Repatha Syringe] 140 mg SQ Q14D 07/16/19 03/14/20 History Magnesium 500 mg PO HS 07/16/19 03/14/20 History RABEprazole SODIUM [Aciphex] 20 mg PO DAILY 07/16/19 03/14/20 History Cetirizine HCl [Zyrtec] 10 mg PO DAILY 02/28/20 03/14/20 History Albuterol Inhaler [Ventolin Hfa 2 puff INHALATION RT-QID PRN 03/14/20 03/14/20 History Inhaler] Metoprolol Succinate (ER) [Toprol 25 mg PO DAILY 03/14/20 03/14/20 History Xl] Allergies Allergy/AdvReac Type Severity Reaction Status Date / Time cephalexin monohydrate Allergy Rash/Hives Verified 03/18/20 11:42 [From Keflex] hydromorphone HCl Allergy Anaphylaxis, Verified 03/18/20 11:42 [From Dilaudid] DYSPNEA ketorolac tromethamine Allergy Rash/Hives Verified 03/18/20 11:42 [From Toradol] Penicillins Allergy Rash/Hives Verified 03/18/20 11:42 Hhdycii-Gqv-Spm Reductase Allergy MUSCLE PAIN Verified 03/18/20 11:42 Inhibitor Sulfa (Sulfonamide Allergy Rash/Hives Verified 03/18/20 11:42 Antibiotics) tomato Allergy Rash/Hives Verified 03/18/20 11:42 tree nut Allergy Rash/Hives Verified 03/18/20 11:42 VICRYL SUTURES Allergy Mild PAIN AT Uncoded 03/18/20 11:42 INCISION SITE. Surgical - Exam Vital Signs Temp Pulse Resp BP Pulse Ox 98.6 F 77 16 134/61 95 03/18/20 11:33 03/18/20 11:33 03/18/20 11:33 03/18/20 11:33 03/18/20 11:33 Physical exam: General: Well-developed, well-nourished HEENT: Normocephalic, sclerae nonicteric Abdomen: Nontender, nondistended Extremities: No edema Neuro: Alert and oriented Results - Labs 03/18/20 11:55 Assessment and Plan (1) Breast cancer, right Narrative/Plan: Will proceed with Port-A-Cath placement at this time. Risks of bleeding, infection, DVT, pneumothorax, catheter malfunction, anesthesia related complications were discussed. The patient understands and wishes to proceed. Current Visit: Yes Status: Acute Code(s): C50.911 - MALIGNANT NEOPLASM OF UNSP SITE OF RIGHT FEMALE BREAST SNOMED Code(s): 403636634
[2020-03-18] MEDS ORDERED: LIDOCAINE (PF) 10 MG/ML 2 ML VIAL SQ ONE ×2 (12:36)
[2020-03-18] MEDS ORDERED: HEPARIN SODIUM,PORCINE 100 UNIT/ML 5 ML VIAL IV ONE (12:36)
[2020-03-18] MEDS ORDERED: HYDROmorphone 0.5 MG/0.5 ML SYRINGE IVP PRN (13:03)
[2020-03-18] MEDS ORDERED: NALOXONE 0.4 MG/ML 1 ML VIAL IV PRN (13:03)
--- NOTE | 2020-03-18 13:04 | P.OP ---
Date of Procedure: 03/18/20 Procedure(s) Performed: PREOPERATIVE DIAGNOSIS: Right breast cancer POSTOPERATIVE DIAGNOSIS: Same PROCEDURE: Port-A-Cath placement with fluoroscopic and ultrasound guidance SURGEON: Aron EBL: Minimal ANESTHESIA: Sedation COMPLICATIONS: None OPERATIVE PROCEDURE: Patient was brought and placed on the operative table in the supine position. The patient was sedated per anesthesia that time. The chest and neck were prepped and draped in usual sterile fashion. The ultrasound probe was used to identify the location of the left internal jugular vein. The skin was localized with lidocaine. The Seldinger needle was advanced into the IJ under ultrasound guidance. The wire was advanced through the needle under fluoroscopic guidance into the superior vena cava. A port pocket was created in the left infraclavicular location. The catheter was tunneled from the wire entrance site to the port pocket. The port was then connected to the catheter. The dilator introducer was threaded over the guidewire. The guidewire and dilator were then removed. The catheter was advanced through the introducer and introducer was then removed. The tip was seen to be in the right atrial junction via fluoroscopy. A picture of the radiograph showing the tip at the radial digital junction was taken. Port was flushed with both saline and a Hep- Lock solution. There was good flow both in and out of the port. The port was sutured in underlying tissues using 3-0 silk sutures. The subcutaneous tissues were reapproximated using 3-0 Vicryl sutures and the skin at both locations using 4-0 Monocryl sutures. Skin glue and sterile dressings then applied. DISPOSITION: Stable to recovery room
--- NOTE | 2020-03-18 13:42 | FL ---
EXAMINATION TYPE: FL guided central line placemt HISTORY: Fluoroscopy time Impression: 1. Fluoroscopy support provided to the referring physician. 22 seconds fluoroscopy provided.
[2020-03-18 14:06] VITALS: BP 124/77; PULSE 70; RESP 18
--- NOTE | 2020-03-18 14:09 | XR ---
EXAMINATION TYPE: XR chest 1V confirm line plcaz DATE OF EXAM: 03/18/2020 COMPARISON: 10/28/2018 HISTORY: Line placement TECHNIQUE: Single frontal view of the chest is obtained. FINDINGS: Left-sided Mediport seen with the tip overlying the SVC and no sizable pneumothorax. Heart size. No overt failure. Hypertrophic and degenerative change of the spine. No consolidation. Suggest ion of surgical clips in the epigastrium. Calcific tendinosis of the left shoulder. IMPRESSION: 1. Mediport appears in good position with no sizable pneumothorax.
== END 2020-03-18 14:20 | disposition home or self-care (01) ==
LOC: OR 10:36
PROVIDERS: ATTEND Surgery
DX: C50.911 Malignant neoplasm of unspecified site of right female breast (principal); N90.89 Other specified noninflammatory disorders of vulva and perineum; E03.9 Hypothyroidism, unspecified; K21.9 Gastro-esophageal reflux disease without esophagitis; M19.90 Unspecified osteoarthritis, unspecified site; E78.5 Hyperlipidemia, unspecified; I10 Essential (primary) hypertension; K90.49 Malabsorption due to intolerance, not elsewhere classified; Z17.1 Estrogen receptor negative status [ER-]; Z98.890 Other specified postprocedural states; Z86.018 Personal history of other benign neoplasm; Z88.5 Allergy status to narcotic agent; Z88.6 Allergy status to analgesic agent; Z91.018 Allergy to other foods; Z88.8 Allergy status to other drugs, medicaments and biological substances; Z88.2 Allergy status to sulfonamides; Z91.09 Other allergy status, other than to drugs and biological substances; Z88.0 Allergy status to penicillin; Z88.1 Allergy status to other antibiotic agents; Z79.899 Other long term (current) drug therapy; Z79.1 Long term (current) use of non-steroidal anti-inflammatories (NSAID); Z79.890 Hormone replacement therapy; Z90.49 Acquired absence of other specified parts of digestive tract; Z90.710 Acquired absence of both cervix and uterus; Z52.4 Kidney donor; Z87.891 Personal history of nicotine dependence; Z86.718 Personal history of other venous thrombosis and embolism; Z86.711 Personal history of pulmonary embolism; Z98.41 Cataract extraction status, right eye; Z98.42 Cataract extraction status, left eye; Z97.2 Presence of dental prosthetic device (complete) (partial); Z91.89 Other specified personal risk factors, not elsewhere classified; Z80.3 Family history of malignant neoplasm of breast; Z80.8 Family history of malignant neoplasm of other organs or systems; Z80.0 Family history of malignant neoplasm of digestive organs; Z80.2 Family history of malignant neoplasm of other respiratory and intrathoracic organs; Z80.49 Family history of malignant neoplasm of other genital organs; Z80.1 Family history of malignant neoplasm of trachea, bronchus and lung; Z80.7 Family history of other malignant neoplasms of lymphoid, hematopoietic and related tissues
CPT/HCPCS: 36561; 80053; 85025; 77001; C8929; C1788; J2250; J2001; J1644; J1642; J1100; J2405; J0690; J3010; J2704; Q9950; 93306

== ENCOUNTER → 2020-03-18 | Outpatient (CLI) | payer MEDICARE, OTHER ==
--- NOTE | 2020-03-18 17:16 | ECHOF ---
Referral Reason:C50.411 breast ca MEASUREMENTS -------- HEIGHT: 154.9 cm WEIGHT: 72.1 kg BP: RVIDd: 3.3 cm (< 3.3) IVSd: 1.4 cm (0.6 - 1.1) LVIDd: 3.7 cm (3.9 - 5.3) LVPWd: 1.5 cm (0.6 - 1.1) IVSs: 1.7 cm LVIDs: 2.5 cm LVPWs: 1.7 cm LAESV Index (A-L): 11.35 ml/m Ao Diam: 2.8 cm (2.0 - 3.7) AV Cusp: 1.9 cm (1.5 - 2.6) MV EXCURSION: 18.450 mm (> 18.000) MV EF SLOPE: 36 mm/s (70 - 150) EPSS: 0.3 cm MV E Dave: 0.59 m/s MV DecT: 170 ms MV A Dave: 0.90 m/s MV E/A Ratio: 0.66 RAP: 5.00 mmHg RVSP: 31.25 mmHg FINDINGS -------- Sinus rhythm. This was a technically difficult study with suboptimal views. The left ventricular size is normal. There is moderate concentric left ventricular hypertrophy. O verall left ventricular systolic function is normal with, an EF between 55 - 60 %. The diastolic fi lling pattern is normal for the age of the patient 13.12. Septal wall motion is delayed, and consis tent with conduction delay/bundle branch block. The right ventricle is mildly enlarged. Normal LA size by volume 22+/-6 ml/m2. The right atrial size is normal. 5.0mg of Lumason was utilized for enhancement of images Interatrial and interventricular septum intact. Aortic valve is trileaflet and is mildly thickened. There is no evidence of aortic regurgitation. There is no evidence of aortic stenosis. The mitral valve leaflets are mildly thickened. There is trace mitral regurgitation. Mild tricuspid regurgitation present. Right ventricular systolic pressure is normal at < 35 mmHg. The right ventricular systolic pressure, as measured by Doppler, is 31.25mmHg. There is no pulmonic regurgitation present. The aortic root size is normal. IVC Not well visulized. There is no pericardial effusion. CONCLUSIONS -------- 1. There is moderate concentric left ventricular hypertrophy. 2. Overall left ventricular systolic function is normal with, an EF between 55 - 60 %. 3. The right ventricle is mildly enlarged. 4. Normal LA size by volume 22+/-6 ml/m2. 5. Aortic valve is trileaflet and is mildly thickened. 6. There is trace mitral regurgitation. 7. Mild tricuspid regurgitation present. 8. There is no pericardial effusion. PAVER LAYER: Monica Hull RDCS
== END | disposition home or self-care (01) ==
LOC: RADECHMAIN 10:28
PROVIDERS: ATTEND Surgery
DX: I08.2 Rheumatic disorders of both aortic and tricuspid valves (principal); C50.411 Malignant neoplasm of upper-outer quadrant of right female breast; Z17.1 Estrogen receptor negative status [ER-]
CPT/HCPCS: C8929; Q9950; 93306

== ENCOUNTER → 2020-04-02 | Outpatient (CLI) | payer MEDICARE, OTHER ==
--- NOTE | 2020-04-02 22:08 | SFUN ---
SLEEP CENTER FOLLOW UP NOTE DATE OF SERVICE: 04/02/2020 This 74-year-old lady has been followed in Sleep Center for treatment of obstructive sleep apnea-hypopnea syndrome. Patient continues to use her CPAP equipment. Recently she was not able to use it for several nights because she was started on treatment with chemotherapy for breast carcinoma, and when she put her mask on, it did not feel good, and made her feel like vomiting. [place] Sleepiness Scale today is 4. I checked her CPAP unit. Range of the pressure is 5 to 15, average pressure 11.8, average usage 4.6 hours per night. Leak is 4 L/minute. Apnea-hypopnea index 3.9. MEDICATIONS: 1. Levothyroxine 0.157 mcg. 2. Metoprolol 25 mg once a day. 3. Hydrochlorothiazide once a day. 4. Claritin. 5. AcipHex. PHYSICAL EXAMINATION: GENERAL: A pleasant patient in no distress. VITAL SIGNS: BP 137/81, HR 80, RR 12, height 5 feet and 1/4 inch, weight 165.2 pounds, temperature 97.7, oxygen saturation at room air 96%, BMI 32.2. HEENT: PERRLA, EOMI. Evaluation of oropharynx showed tongue protrudes midline. Low position of soft palate. Mallampati III. NECK: Supple. No JVD. Thyroid is not palpable. Neck measures 16 inches in circumference. LUNGS: Clear to percussion and to auscultation. Good air exchange. No wheezing or rhonchi. HEART: S1, S2 regular. No murmurs, gallops or rubs. ABDOMEN: Slightly obese. EXTREMITIES: No clubbing or cyanosis. DIRECTOR OF COMPLIANCE: Awake, alert, and oriented X3. Cranial nerves 2 to 7 intact. There is no fasciculation or atrophy. noted. No focal deficits observed. IMPRESSION: 1. Obstructive sleep apnea-hypopnea syndrome. The patient is benefitting from CPAP treatment. 2. Right breast carcinoma. The patient is on chemotherapy, preparing for surgical treatment and radiation therapy. 3. Hypertension. 4. Hypothyroidism. 5. Status post total hysterectomy. 6. Status post left kidney nephrectomy for kidney donation. 7. Status post right-sided rotator cuff surgery. 8. History of leg cramps. 9. History of neck pain. PLAN: 1. Patient will continue to use PAP equipment every night for the whole night. 2. Sleep hygiene with regular time in bed for at least 7-1/2 to 8 hours. 3. Precautions related to driving. No driving if feeling sleepiness. 4. I will maintain all necessary prescription for PAP supplies including mask, tube, filters. 5. Watching weight. 6. No driving if feeling sleepiness. 7. Follow-up visit in 6 months or earlier if patient has any problems. Thank you very much for allowing me to participate in the management of your patient. Sincerely, Wan Almaguer MD, PhD, FAASM Diplomat of [place] [employer] [place] [employer] [facility] [place] MMODL / IJN: [id number] /
== END | disposition home or self-care (01) ==
LOC: SLEEP 14:00
PROVIDERS: ATTEND Internal Medicine
DX: G47.33 Obstructive sleep apnea (adult) (pediatric) (principal); I10 Essential (primary) hypertension; E03.9 Hypothyroidism, unspecified; C50.911 Malignant neoplasm of unspecified site of right female breast; Z90.710 Acquired absence of both cervix and uterus; Z90.5 Acquired absence of kidney; Z99.89 Dependence on other enabling machines and devices; Z79.899 Other long term (current) drug therapy; Z79.890 Hormone replacement therapy; Z87.39 Personal history of other diseases of the musculoskeletal system and connective tissue; Z92.3 Personal history of irradiation; Z92.21 Personal history of antineoplastic chemotherapy

== ENCOUNTER 2020-05-22 02:40 | Emergency (ER) | payer MEDICARE, OTHER ==
[2020-05-22] MEDS ORDERED: ACETAMINOPHEN TAB 325 MG TAB PO STA (03:07)
[2020-05-22] MEDS ORDERED: MEROPENEM 1 GM in SODIUM CHLORIDE 0.9% 100 ML IVPB STA (03:24)
--- NOTE | 2020-05-22 03:32 | ED ---
Fever HPI - General Chief Complaint: Fever Stated Complaint: Fever Time Seen by Provider: 05/22/20 03:04 Source: patient Mode of arrival: ambulatory Limitations: no limitations - History of Present Illness Initial Comments: This patient is 74-year-old woman with stage IV breast cancer. In the evening tonight she started to develop fever and chills. Her temperature kept going up and she therefore was directed come emergency department. Her last round of chemotherapy was 2 weeks ago. She states that she does tend to get neutropenic and has been taking Neulastin. Her chemotherapy is administered through [facility]. Complaint: fever Onset/Timin -: hour(s) Temperature Source: oral Context: on chemotherapy Associated Symptoms: chills, myalgias Treatments Prior to Arrival: none - Related Data Home Medications Medication Instructions Recorded Confirmed Lysine 500 mg PO DAILY 01/21/15 03/14/20 Levothyroxine Sodium [Synthroid] 68.5 mcg PO DAILY 10/01/15 03/14/20 Cholecalciferol [Vitamin D3 (25 1,000 unit PO DAILY 10/28/18 03/14/20 Mcg = 1000 Iu)] hydroCHLOROthiazide [Hydrodiuril] 25 mg PO DAILY 10/28/18 03/14/20 Calcium Carbonate [Calcium] 600 mg PO HS 07/16/19 03/14/20 Evolocumab [Repatha Syringe] 140 mg SQ Q14D 07/16/19 03/14/20 Magnesium 500 mg PO HS 07/16/19 03/14/20 RABEprazole SODIUM [Aciphex] 20 mg PO DAILY 07/16/19 03/14/20 Cetirizine HCl [Zyrtec] 10 mg PO DAILY 02/28/20 03/14/20 Albuterol Inhaler [Ventolin Hfa 2 puff INHALATION RT-QID PRN 03/14/20 03/14/20 Inhaler] Metoprolol Succinate (ER) [Toprol 25 mg PO DAILY 03/14/20 03/14/20 Xl] Allergies Allergy/AdvReac Type Severity Reaction Status Date / Time cephalexin monohydrate Allergy Rash/Hives Verified 05/22/20 02:48 [From Keflex] hydromorphone HCl Allergy Anaphylaxis, Verified 05/22/20 02:48 [From Dilaudid] DYSPNEA ketorolac tromethamine Allergy Rash/Hives Verified 05/22/20 02:48 [From Toradol] Penicillins Allergy Rash/Hives Verified 05/22/20 02:48 Xgiwyjg-Cfp-Ulh Reductase Allergy MUSCLE PAIN Verified 05/22/20 02:48 Inhibitor Sulfa (Sulfonamide Allergy Rash/Hives Verified 05/22/20 02:48 Antibiotics) tomato Allergy Rash/Hives Verified 05/22/20 02:48 tree nut Allergy Rash/Hives Verified 05/22/20 02:48 VICRYL SUTURES Allergy Mild PAIN AT Uncoded 05/22/20 02:48 INCISION SITE. Review of Systems ROS Statement: Those systems with pertinent positive or pertinent negative responses have been documented in the HPI. ROS Other: All systems not noted in ROS Statement are negative. Constitutional: Reports: fever, chills Eyes: Denies: eye pain, vision change ENT: Denies: throat pain, congestion Respiratory: Denies: cough, dyspnea, wheezes Cardiovascular: Reports: palpitations. Denies: chest pain, orthopnea, edema, syncope Gastrointestinal: Denies: abdominal pain, nausea, vomiting, diarrhea Genitourinary: Denies: dysuria, frequency, hematuria Musculoskeletal: Reports: myalgia. Denies: back pain Skin: Denies: rash Neurological: Denies: headache, weakness, numbness Past Medical History Past Medical History: Cancer, Deep Vein Thrombosis (DVT), GERD/Reflux, Hyperlipidemia, Hypertension, Osteoarthritis (OA), Pulmonary Embolus (PE), Thyroid Disorder Additional Past Medical History / Comment(s): gluten intolerance, DVT in leg @age of 12, resulted in PE, Rt breast cancer diagnosis- Jan 2020. History of Any Multi-Drug Resistant Organisms: None Reported Past Surgical History: Appendectomy, Hysterectomy, Orthopedic Surgery Additional Past Surgical History / Comment(s): DONATED LEFT KIDNEY. breast reduction, abdominoplasty, right rotator cuff repair, right hand thumb arthroplasty, cataracts removed, Rt breast biopsy Past Anesthesia/Blood Transfusion Reactions: No Reported Reaction Past Psychological History: No Psychological Hx Reported Smoking Status: Former smoker Past Alcohol Use History: None Reported Past Drug Use History: None Reported - Past Family History Mother Family Medical History: Cancer Additional Family Medical History / Comment(s): Non Hodgkins Lymphoma General Exam Limitations: no limitations General appearance: alert, in no apparent distress Head exam: Present: atraumatic, normocephalic Eye exam: Present: normal appearance, PERRL, EOMI. Absent: scleral icterus, conjunctival injection ENT exam: Present: normal oropharynx Neck exam: Present: normal inspection, full ROM. Absent: meningismus Respiratory exam: Present: normal lung sounds bilaterally. Absent: respiratory distress, wheezes, rales, rhonchi, stridor Cardiovascular Exam: Present: normal rhythm, tachycardia, normal heart sounds. Absent: systolic murmur, diastolic murmur, rubs, gallop GI/Abdominal exam: Present: soft. Absent: distended, tenderness, guarding, rebound, rigid, mass Extremities exam: Present: normal inspection, normal capillary refill. Absent: pedal edema, calf tenderness Back exam: Present: normal inspection. Absent: CVA tenderness (R), CVA tenderness (L) Neurological exam: Present: alert Skin exam: Present: warm, dry, intact, normal color. Absent: rash Course Vital Signs 05/22/20 05/22/20 02:45 03:54 Temperature 100.6 F H 99.5 F Pulse Rate 101 H 93 Respiratory 22 20 Rate Blood Pressure 151/67 137/72 O2 Sat by Pulse 94 L 94 L Oximetry Medical Decision Making - Lab Data Result diagrams: 05/22/20 03:55 05/22/20 03:55 Lab Results 05/22/20 05/22/20 05/22/20 Range/Units 03:55 03:55 03:55 WBC 13.5 H (3.8-10.6) k/uL RBC 3.50 L (3.80-5.40) m/uL Hgb 10.9 L D (11.4-16.0) gm/dL Hct 31.6 L (34.0-46.0) % MCV 90.4 (80.0-100.0) fL MCH 31.2 (25.0-35.0) pg MCHC 34.6 (31.0-37.0) g/dL RDW 16.3 H (11.5-15.5) % Plt Count 166 (150-450) k/uL MPV 7.1 Neutrophils % (Manual) 79 % Band Neuts % (Manual) 8 % Lymphocytes % (Manual) 6 % Monocytes % (Manual) 6 % Eosinophils % (Manual) 1 % Neutrophils # (Manual) 11.70 H (1.3-7.7) k/uL Lymphocytes # (Manual) 0.81 L (1.0-4.8) k/uL Monocytes # (Manual) 0.81 (0-1.0) k/uL Eosinophils # (Manual) 0.14 (0-0.7) k/uL Nucleated RBCs 0 (0-0) /100 WBC Manual Slide Review Performed Poikilocytosis Slight Anisocytosis Slight PT 9.6 (9.0-12.0) sec INR 0.9 (<1.2) APTT 23.0 (22.0-30.0) sec Sodium (137-145) mmol/L Potassium (3.5-5.1) mmol/L Chloride (98-107) mmol/L Carbon Dioxide (22-30) mmol/L Anion Gap mmol/L BUN (7-17) mg/dL Creatinine (0.52-1.04) mg/dL Est GFR (CKD-EPI)AfAm (>60 ml/min/1.73 sqM) Est GFR (CKD-EPI)NonAf (>60 ml/min/1.73 sqM) Glucose (74-99) mg/dL Plasma Lactic Acid Leon (0.7-2.0) mmol/L Calcium (8.4-10.2) mg/dL Total Bilirubin (0.2-1.3) mg/dL AST (14-36) U/L ALT (4-34) U/L Alkaline Phosphatase (38-126) U/L Total Protein (6.3-8.2) g/dL Albumin (3.5-5.0) g/dL Urine Color Light Yellow Urine Appearance Clear (Clear) Urine pH 7.0 (5.0-8.0) Ur Specific [place] 1.016 (1.001-1.035) Urine Protein Negative (Negative) Urine Glucose (UA) Negative (Negative) Urine Ketones Negative (Negative) Urine Blood Negative (Negative) Urine Nitrite Negative (Negative) Urine Bilirubin Negative (Negative) Urine Urobilinogen <2.0 (<2.0) mg/dL Ur Leukocyte Esterase Negative (Negative) 05/22/20 05/22/20 Range/Units 03:55 03:55 WBC (3.8-10.6) k/uL RBC (3.80-5.40) m/uL Hgb (11.4-16.0) gm/dL Hct (34.0-46.0) % MCV (80.0-100.0) fL MCH (25.0-35.0) pg MCHC (31.0-37.0) g/dL RDW (11.5-15.5) % Plt Count (150-450) k/uL MPV Neutrophils % (Manual) % Band Neuts % (Manual) % Lymphocytes % (Manual) % Monocytes % (Manual) % Eosinophils % (Manual) % Neutrophils # (Manual) (1.3-7.7) k/uL Lymphocytes # (Manual) (1.0-4.8) k/uL Monocytes # (Manual) (0-1.0) k/uL Eosinophils # (Manual) (0-0.7) k/uL Nucleated RBCs (0-0) /100 WBC Manual Slide Review Poikilocytosis Anisocytosis PT (9.0-12.0) sec INR (<1.2) APTT (22.0-30.0) sec Sodium 134 L (137-145) mmol/L Potassium 4.1 (3.5-5.1) mmol/L Chloride 99 (98-107) mmol/L Carbon Dioxide 27 (22-30) mmol/L Anion Gap 8 mmol/L BUN 16 (7-17) mg/dL Creatinine 0.83 (0.52-1.04) mg/dL Est GFR (CKD-EPI)AfAm 81 (>60 ml/min/1.73 sqM) Est GFR (CKD-EPI)NonAf 71 (>60 ml/min/1.73 sqM) Glucose 104 H (74-99) mg/dL Plasma Lactic Acid Leon 1.5 (0.7-2.0) mmol/L Calcium 9.1 (8.4-10.2) mg/dL Total Bilirubin 0.5 (0.2-1.3) mg/dL AST 36 (14-36) U/L ALT 28 (4-34) U/L Alkaline Phosphatase 181 H (38-126) U/L Total Protein 6.1 L (6.3-8.2) g/dL Albumin 3.8 (3.5-5.0) g/dL Urine Color Urine Appearance (Clear) Urine pH (5.0-8.0) Ur Specific [place] (1.001-1.035) Urine Protein (Negative) Urine Glucose (UA) (Negative) Urine Ketones (Negative) Urine Blood (Negative) Urine Nitrite (Negative) Urine Bilirubin (Negative) Urine Urobilinogen (<2.0) mg/dL Ur Leukocyte Esterase (Negative) - EKG Data -: EKG Interpreted by Ia EKG shows normal: sinus rhythm, axis (Normal), intervals (Normal), ST-T waves (Normal) Rate: normal (Rate 94 bpm) Interpretation: other (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
--- NOTE | 2020-05-22 03:41 | XR ---
EXAM: XR Chest, 1 View CLINICAL HISTORY: ITS.REASON XR Reason: Fever TECHNIQUE: Frontal view of the chest. COMPARISON: March 18, 2020 FINDINGS: Lungs: Unremarkable. No consolidation. Pleural space: Unremarkable. No pneumothorax. Heart: Unremarkable. No cardiomegaly. Mediastinum: Unremarkable. Bones/joints: Unremarkable. Vasculature: Mildly calcified and tortuous thoracic aorta appears nondilated and unchanged. Tubes, lines and devices: There is a Port-A-Cath on the left in standard position, unchanged. IMPRESSION: There is a Port-A-Cath on the left in standard position, unchanged. No acute cardiopulmonary process is identified.
[2020-05-22 04:08] LABS: Appearance,Urine Clear (Clear); Bilirubin,Urine Negative (Negative); Blood,Urine Negative (Negative); Color,Urine Light Yellow; Glucose,Urine (UA) Negative (Negative); Ketones,Urine Negative (Negative); Leukocyte Esterase,Urine Negative (Negative); Nitrite,Urine Negative (Negative); Protein,Urine Negative (Negative); Specific Gravity,Urine 1.016 (1.001-1.035); Urobilinogen,Urine <2.0 mg/dL (<2.0)
[2020-05-22 04:40] LABS: Albumin 3.8 g/dL (3.5-5.0); Calcium 9.1 mg/dL (8.4-10.2); Potassium 4.1 mmol/L (3.5-5.1); Total Bilirubin 0.5 mg/dL (0.2-1.3); Total Protein 6.1 g/dL (6.3-8.2)
[2020-05-22 04:41] LABS: INR 0.9 (<1.2); Prothrombin Time 9.6 sec (9.0-12.0)
[2020-05-22 05:00] LABS: Anisocytosis Slight; HCT 31.6 % (34.0-46.0); MCH 31.2 pg (25.0-35.0); MCHC 34.6 g/dL (31.0-37.0); MCV 90.4 fL (80.0-100.0); Mean Platelet Volume 7.1; Platelet Count 166 k/uL (150-450); Poikilocytosis Slight; RDW 16.3 % (11.5-15.5); WBC 13.5 k/uL (3.8-10.6)
[2020-05-22 05:01] LABS: HGB 10.9 gm/dL (11.4-16.0)
[2020-05-22 05:33] LABS: Band Neutrophils % 8 %; Eosinophils # (M) 0.14 k/uL (0-0.7); Lymphocytes # (M) 0.81 k/uL (1.0-4.8); Monocytes # (M) 0.81 k/uL (0-1.0); Neutrophils % (M) 79 %; Nucleated Red Blood Cells 0 /100 WBC (0-0); Total Cells Counted 100
[2020-05-22 05:50] VITALS: BP 103/61; PULSE 88; RESP 16; TEMP 98.4
== END 2020-05-22 05:47 | disposition home or self-care (01) ==
LOC: EC 02:40
DX: R50.9 Fever, unspecified (principal); K21.9 Gastro-esophageal reflux disease without esophagitis; E78.5 Hyperlipidemia, unspecified; I10 Essential (primary) hypertension; M19.90 Unspecified osteoarthritis, unspecified site; Z86.718 Personal history of other venous thrombosis and embolism; Z85.3 Personal history of malignant neoplasm of breast; Z87.891 Personal history of nicotine dependence
CPT/HCPCS: 36415; 93005; 80053; 83605; 85025; 85610; 85730; 81003; 87040; 71045; 99284; 96365; U0003; U0005; J2185

== ENCOUNTER 2020-07-01 09:50 | Day surgery (SDC) | payer MEDICARE, OTHER ==
[2020-06-30 08:37] VITALS: BMI 30.2
[~2020-07-01 09:50] MED LIST changes: -ACETAMINOPHEN TAB 500 MG TAB PO PRN; -DEXAMETHASONE SOD PHOSPHATE 4 MG/ML 1 ML VIAL IV ONE; -HEPARIN SODIUM,PORCINE 5,000 UNIT/ML 1 ML VIAL SQ PRN; -LIDOCAINE 1% (10MG/ML) FOR IV START INTRADERMA PRN; -MIDAZOLAM 2 MG/2 ML VIAL IV PRN; -ONDANSETRON 4 MG/2 ML VIAL IVP ONE; -Pre Op ABX Message 1 EACH MISC MISCELLANE ONE; -fentaNYL (PF) 50 MCG/ML 2 ML AMP IV PRN
[2020-07-01 10:08] VITALS: TEMP 98
[2020-07-01] MEDS ORDERED: LACTATED RINGERS 1,000 ML IV ONE (10:08)
[2020-07-01] MEDS ORDERED: PROPOFOL 10 MG/ML 20 ML VIAL IV ONE (10:28)
[2020-07-01] MEDS ORDERED: LIDOCAINE 1% INJ 10MG/ML (20 ML MDV) ONE (10:28)
--- NOTE | 2020-07-01 10:33 | P.GSHP ---
History of Present Illness H&P Date: 07/01/20 Chief Complaint: Dysphagia 74-year-old female with recent diagnosis of breast cancer. Patient has history of chronic reflux symptoms. Recently has had more issues with dysphagia. Feels things getting caught in the back of her throat. Past Medical History Past Medical History: Cancer, Deep Vein Thrombosis (DVT), GERD/Reflux, Hyperlipidemia, Hypertension, Osteoarthritis (OA), Pulmonary Embolus (PE), Thyroid Disorder Additional Past Medical History / Comment(s): gluten intolerance, DVT in leg @age of 12, resulted in PE, Rt breast cancer diagnosis- Jan 2020.-HAS CHEMO EVERY TUESDAY, ALOPECIA FROM CHEMO History of Any Multi-Drug Resistant Organisms: None Reported Past Surgical History: Appendectomy, Hysterectomy, Orthopedic Surgery Additional Past Surgical History / Comment(s): DONATED LEFT KIDNEY. breast reduction, abdominoplasty, right rotator cuff repair, right hand thumb arthroplasty, cataracts removed, Rt breast biopsy, PORT A CATH LT CHEST Past Anesthesia/Blood Transfusion Reactions: No Reported Reaction Smoking Status: Former smoker - Past Family History Mother Family Medical History: Cancer Additional Family Medical History / Comment(s): Non Hodgkins Lymphoma Medications and Allergies Home Medications Medication Instructions Recorded Confirmed Type Lysine 500 mg PO DAILY 01/21/15 06/30/20 History Levothyroxine Sodium [Synthroid] 68.5 mcg PO DAILY 10/01/15 06/30/20 History Cholecalciferol [Vitamin D3 (25 1,000 unit PO DAILY 10/28/18 06/30/20 History Mcg = 1000 Iu)] Calcium Carbonate [Calcium] 600 mg PO HS 07/16/19 06/30/20 History Magnesium 500 mg PO HS 07/16/19 06/30/20 History RABEprazole SODIUM [Aciphex] 20 mg PO DAILY 07/16/19 06/30/20 History Cetirizine HCl [Zyrtec] 10 mg PO DAILY 02/28/20 06/30/20 History Albuterol Inhaler [Ventolin Hfa 2 puff INHALATION RT-QID PRN 03/14/20 06/30/20 History Inhaler] Metoprolol Succinate (ER) [Toprol 25 mg PO DAILY 03/14/20 06/30/20 History Xl] Alirocumab [Praluent Pen] 150 mg SQ Q14D 06/30/20 06/30/20 History Losartan [Cozaar] 50 mg PO HS 06/30/20 06/30/20 History Allergies Allergy/AdvReac Type Severity Reaction Status Date / Time cephalexin monohydrate Allergy Rash/Hives Verified 06/30/20 08:24 [From Keflex] hydromorphone HCl Allergy Anaphylaxis, Verified 06/30/20 08:24 [From Dilaudid] DYSPNEA ketorolac tromethamine Allergy Rash/Hives Verified 06/30/20 08:24 [From Toradol] Opgxuyb-Qrq-Zfw Reductase Allergy MUSCLE PAIN Verified 06/30/20 08:24 Inhibitor Sulfa (Sulfonamide Allergy Rash/Hives Verified 06/30/20 08:24 Antibiotics) tomato Allergy Rash/Hives Verified 06/30/20 08:24 tree nut Allergy Rash/Hives Verified 06/30/20 08:24 VICRYL SUTURES Allergy Mild PAIN AT Uncoded 06/30/20 08:24 INCISION SITE. Surgical - Exam Vital Signs Temp Pulse Resp BP Pulse Ox 98 F 78 18 179/85 98 07/01/20 10:05 07/01/20 10:05 07/01/20 10:05 07/01/20 10:05 07/01/20 10:05 Physical exam: General: Well-developed, well-nourished HEENT: Normocephalic, sclerae nonicteric Abdomen: Nontender, nondistended Extremities: No edema Neuro: Alert and oriented Assessment and Plan (1) GERD (gastroesophageal reflux disease) Narrative/Plan: Will proceed with upper endoscopy Current Visit: Yes Status: Acute Code(s): K21.9 - GASTRO-ESOPHAGEAL REFLUX DISEASE WITHOUT ESOPHAGITIS SNOMED Code(s): 538371924
--- NOTE | 2020-07-01 10:39 | P.PCN ---
Date of Procedure: 07/01/20 Procedure(s) Performed: Preoperative Dx: GERD, dysphagia Postoperative Dx: Mild gastritis Procedure: EGD with Bx Anesthesia: Sedation Endoscopist: Dr. Sharp Specimens: Antrum Endoscopic Procedure: The patient was on the endoscopy table in the left decubitus position. The Olympus gastroscope was inserted into the oropharynx and passed under direct visualization to the region of the third portion of the duodenum. From that point the scope was slowly withdrawn inspecting all surfaces carefully. There were no neoplastic inflammatory or polypoid lesions throughout the duodenum. The pylorus was widely patent. The stomach was carefully inspected. There was mild gastritis present. A biopsy of the antrum took place to rule out H. pylori. Retroflexion revealed a normal hiatus. The esophagus was then carefully examined. There were no neoplastic inflammatory or polypoid lesions throughout the visualized esophagus. The patient was then taken to the recovery room in stable condition per anesthesia guidelines. Recommendations: No significant abnormalities identified to explain the patient's symptoms. If symptoms persist consider ENT evaluation or modified barium swallow.
[2020-07-01 10:52] VITALS: BP 119/78; PULSE 75; RESP 16
== END 2020-07-01 11:15 | disposition home or self-care (01) ==
LOC: ORWHC2ENDO 09:50
PROVIDERS: ATTEND Surgery
DX: K31.9 Disease of stomach and duodenum, unspecified (principal); K29.70 Gastritis, unspecified, without bleeding; R13.10 Dysphagia, unspecified; K21.9 Gastro-esophageal reflux disease without esophagitis; C50.919 Malignant neoplasm of unspecified site of unspecified female breast; Z86.718 Personal history of other venous thrombosis and embolism; E78.5 Hyperlipidemia, unspecified; I10 Essential (primary) hypertension; M19.90 Unspecified osteoarthritis, unspecified site; Z86.711 Personal history of pulmonary embolism; E07.9 Disorder of thyroid, unspecified; K90.41 Non-celiac gluten sensitivity; L65.8 Other specified nonscarring hair loss; Z90.89 Acquired absence of other organs; Z90.710 Acquired absence of both cervix and uterus; Z90.5 Acquired absence of kidney; Z98.49 Cataract extraction status, unspecified eye; Z98.890 Other specified postprocedural states; Z95.828 Presence of other vascular implants and grafts; Z87.891 Personal history of nicotine dependence; Z80.7 Family history of other malignant neoplasms of lymphoid, hematopoietic and related tissues; Z97.2 Presence of dental prosthetic device (complete) (partial); Z79.890 Hormone replacement therapy; Z79.899 Other long term (current) drug therapy; Z88.6 Allergy status to analgesic agent; Z88.1 Allergy status to other antibiotic agents; Z88.5 Allergy status to narcotic agent; Z88.2 Allergy status to sulfonamides; Z88.8 Allergy status to other drugs, medicaments and biological substances; Z91.018 Allergy to other foods; Z91.09 Other allergy status, other than to drugs and biological substances
CPT/HCPCS: 88305; 43239; J2001; J2704

== ENCOUNTER 2020-08-09 09:49 | Emergency (ER) | payer MEDICARE, OTHER ==
[2020-08-09 10:00] VITALS: BP 138/76; PULSE 72; RESP 18; TEMP 97.4
[2020-08-09] MEDS ORDERED: oxyCODONE-APAP 5-325MG 1 EACH TAB PO STA (10:40)
--- NOTE | 2020-08-09 10:40 | ED ---
Lower Extremity Injury HPI - General Chief Complaint: Extremity Injury, Lower Stated Complaint: Left foot injury Time Seen by Provider: 08/09/20 10:35 Source: patient, RN notes reviewed, old records reviewed Mode of arrival: wheelchair Limitations: no limitations - History of Present Illness Initial Comments: 73-year-old white female presents to the emergency room, alert and oriented 4, complaining of left heel pain since last night. Patient states that she was [place] the theater and stepped backwards off a step, patient landed hard on her left heel and has been increasingly painful. Patient states she took Percocet last night with some relief. Patient has it elevated with ice on it today however pain is worse with ambulation and weightbearing. Patient denies any other injuries, no LOC. Patient currently being treated for right sided breast cancer and received chemotherapy on . Patient also has a history of DVT, hypertension, pulmonary embolism, osteoarthritis. Patient is a surgical history of nephrectomy for donation of left kidney. Patient denies daily smoking, states quit 20 years ago. Patient denies EtOH use. MD Complaint: foot injury -: days(s) (1) Injury: Foot: Left (heel pain) Type of Injury: other (Stepped backwards and went down a step landing and heel last night) Place: other (Theater) Severity scale (1-10): 6 Improves With: immobilization, rest Worsens With: weight bearing, palpation Context: fall (Stepped backwards and missed step) Associated Symptoms: swelling, able to partially bear weight Treatments Prior to Arrival: cold therapy - Related Data Home Medications Medication Instructions Recorded Confirmed Lysine 500 mg PO DAILY 01/21/15 06/30/20 Levothyroxine Sodium [Synthroid] 68.5 mcg PO DAILY 10/01/15 06/30/20 Cholecalciferol [Vitamin D3 (25 1,000 unit PO DAILY 10/28/18 06/30/20 Mcg = 1000 Iu)] Calcium Carbonate [Calcium] 600 mg PO HS 07/16/19 06/30/20 Magnesium 500 mg PO HS 07/16/19 06/30/20 RABEprazole SODIUM [Aciphex] 20 mg PO DAILY 07/16/19 06/30/20 Cetirizine HCl [Zyrtec] 10 mg PO DAILY 02/28/20 06/30/20 Albuterol Inhaler [Ventolin Hfa 2 puff INHALATION RT-QID PRN 03/14/20 06/30/20 Inhaler] Metoprolol Succinate (ER) [Toprol 25 mg PO DAILY 03/14/20 06/30/20 Xl] Alirocumab [Praluent Pen] 150 mg SQ Q14D 06/30/20 06/30/20 Losartan [Cozaar] 50 mg PO HS 06/30/20 06/30/20 Allergies Allergy/AdvReac Type Severity Reaction Status Date / Time cephalexin monohydrate Allergy Rash/Hives Verified 08/09/20 09:53 [From Keflex] hydromorphone HCl Allergy Anaphylaxis, Verified 08/09/20 09:53 [From Dilaudid] DYSPNEA ketorolac tromethamine Allergy Rash/Hives Verified 08/09/20 09:53 [From Toradol] Dvkcbgz-Hbr-Dqy Reductase Allergy MUSCLE PAIN Verified 08/09/20 09:53 Inhibitor Sulfa (Sulfonamide Allergy Rash/Hives Verified 08/09/20 09:53 Antibiotics) tomato Allergy Rash/Hives Verified 08/09/20 09:53 tree nut Allergy Rash/Hives Verified 08/09/20 09:53 VICRYL SUTURES Allergy Mild PAIN AT Uncoded 06/30/20 08:24 INCISION SITE. Review of Systems ROS Statement: Those systems with pertinent positive or pertinent negative responses have been documented in the HPI. ROS Other: All systems not noted in ROS Statement are negative. Past Medical History Past Medical History: Cancer, Deep Vein Thrombosis (DVT), GERD/Reflux, Hyperlipidemia, Hypertension, Osteoarthritis (OA), Pulmonary Embolus (PE), Thyroid Disorder Additional Past Medical History / Comment(s): gluten intolerance, DVT in leg @age of 12, resulted in PE, Rt breast cancer diagnosis- Jan 2020.-HAS CHEMO EVERY TUESDAY, ALOPECIA FROM CHEMO, PJP History of Any Multi-Drug Resistant Organisms: C-DIFF Date of last positivie culture/infection: 2020 Past Surgical History: Appendectomy, Hysterectomy, Orthopedic Surgery Additional Past Surgical History / Comment(s): DONATED LEFT KIDNEY. breast reduction, abdominoplasty, right rotator cuff repair, right hand thumb arthroplasty, cataracts removed, Rt breast biopsy, PORT A CATH LT CHEST Past Anesthesia/Blood Transfusion Reactions: No Reported Reaction Past Psychological History: No Psychological Hx Reported Smoking Status: Former smoker Past Alcohol Use History: None Reported Past Drug Use History: None Reported - Past Family History Mother Family Medical History: Cancer Additional Family Medical History / Comment(s): Non Hodgkins Lymphoma General Exam Limitations: no limitations General appearance: alert, in no apparent distress Head exam: Present: atraumatic, normocephalic, normal inspection Eye exam: Present: normal appearance, PERRL, EOMI. Absent: scleral icterus, conjunctival injection, periorbital swelling ENT exam: Present: normal exam, normal oropharynx, mucous membranes moist Neck exam: Present: normal inspection, full ROM. Absent: tenderness, meningismus, lymphadenopathy, thyromegaly Respiratory exam: Present: normal lung sounds bilaterally. Absent: respiratory distress, wheezes, rales, rhonchi, stridor, decreased breath sounds Cardiovascular Exam: Present: regular rate, normal rhythm, normal heart sounds. Absent: systolic murmur, diastolic murmur, rubs, gallop, clicks GI/Abdominal exam: Present: soft, normal bowel sounds. Absent: distended, tenderness, guarding, rebound, rigid Extremities exam: Present: normal inspection, full ROM, normal capillary refill. Absent: tenderness, pedal edema, joint swelling, calf tenderness Left Foot/Toe exam: Present: full ROM, tenderness (Calcaneus), swelling, calcaneal tenderness. Absent: abrasion, laceration, deformity, crepitus, dislocation, puncture wound, foreign body Neurovascular tendon exam: Present: no vascular compromise. Absent: pulse deficit, abnormal cap refill, motor deficit, sensory deficit, tendon deficit, pallor, decreased fine/light touch, foot drop Back exam: Present: normal inspection. Absent: full ROM, tenderness, CVA tenderness (R), CVA tenderness (L), muscle spasm, paraspinal tenderness, vertebral tenderness, rash noted Neurological exam: Present: alert, oriented X3, CN II-XII intact Psychiatric exam: Present: normal affect, normal mood Skin exam: Present: warm, dry, intact, normal color. Absent: rash Course Vital Signs 08/09/20 09:55 Temperature 97.4 F L Pulse Rate 72 Respiratory 18 Rate Blood Pressure 138/76 O2 Sat by Pulse 96 Oximetry Procedures - Orthopedic Splinting/Casting Injury #1 Side: left Lower Extremity Injury Location: ankle, foot Lower Extremity Immobilizer: posterior splint, synthetic pre-padded splint Medical Decision Making - Medical Decision Making X-ray of the left ankle and foot reveal no acute fracture, there is a tiny posterior plantar heel spur with some moderate degenerative changes at the first MTP joint. patient neurovascularly intact. Patient denies any metatarsal pain or midfoot pain. patient denies any associated injuries including ankle or knee pain. Disposition Clinical Impression: Contusion of left heel Disposition: HOME SELF-CARE Condition: Good Instructions (If sedation given, give patient instructions): Foot Contusion (ED), Foot Sprain (ED) Additional Instructions: Wear splint and follow-up with orthopedics next week. Ice and elevate at home and continue your prescribed pain medication. Return if increasing pain, numbness or tingling. Is patient prescribed a controlled substance at d/c from ED?: No Referrals: [facility],Clinic [Primary Care Provider] - 1-2 days Ramez Pollard MD [STAFF PHYSICIAN] - 1-2 days Time of Disposition: 11:29
[2020-08-09] MEDS ORDERED: PROMETHAZINE 25 MG TAB PO STA (10:44)
--- NOTE | 2020-08-09 11:16 | XR ---
EXAMINATION TYPE: XR ankle complete 3 views LT, XR foot complete 3 views LT DATE OF EXAM: 08/09/2020 COMPARISON: NONE HISTORY: 74-year-old female fall and heel pain FINDINGS: Ankle: Ankle mortise is congruent with preservation of the distal tibiofibular overlap. Talar dome is intact . Subtalar joint is aligned. Smooth delineation to the Achilles tendon. Foot: Tiny posterior and plantar heel spurs. Degenerative change of the first metatarsal sesamoid joint and mild at the first MTP joint. Type I accessory navicular. There may be some joint space narrowing at the fifth TMT joint. No acute fracture, subluxation, or dislocation seen. IMPRESSION: 1. Ankle: No acute osseous abnormality seen. 2. Foot: Moderate degenerative change at the first MTP joint and first metatarsal sesamoid joints. Ti ny posterior and plantar heel spurs. No acute osseous abnormality seen.
== END 2020-08-09 11:53 | disposition home or self-care (01) ==
LOC: EC 09:49
DX: S90.32XA Contusion of left foot, initial encounter (principal); M77.32 Calcaneal spur, left foot; I10 Essential (primary) hypertension; M19.90 Unspecified osteoarthritis, unspecified site; K21.9 Gastro-esophageal reflux disease without esophagitis; E07.9 Disorder of thyroid, unspecified; Z79.899 Other long term (current) drug therapy; Z88.1 Allergy status to other antibiotic agents; Z88.5 Allergy status to narcotic agent; Z88.6 Allergy status to analgesic agent; Z88.2 Allergy status to sulfonamides; Z88.8 Allergy status to other drugs, medicaments and biological substances; Z91.018 Allergy to other foods; Z91.09 Other allergy status, other than to drugs and biological substances; Z87.891 Personal history of nicotine dependence; Z79.890 Hormone replacement therapy; W10.9XXA Fall (on) (from) unspecified stairs and steps, initial encounter; Y92.254 Theater (live) as the place of occurrence of the external cause
CPT/HCPCS: 29515; 99283

== ENCOUNTER 2020-10-13 08:01 | Day surgery (SDC) | payer MEDICARE, OTHER ==
--- NOTE | 2020-10-13 07:55 | P.GSHP ---
History of Present Illness H&P Date: 10/13/20 Chief Complaint: Right breast cancer 75-year-old female here today for right breast lumpectomy with sentinel lymph node biopsy. Patient diagnosed with triple -1.5 cm right breast cancer earlier this year. Patient underwent neoadjuvant therapy. She has had reduction in the size of the mass down to 6 mm. She does not feel a mass at this time. Personal history of previous bilateral breast reduction. Patient was getting genetic testing performed however we still do not have those results available to us at this time. Past Medical History Past Medical History: Cancer, Deep Vein Thrombosis (DVT), GERD/Reflux, Hyperlipidemia, Hypertension, Osteoarthritis (OA), Pulmonary Embolus (PE), Thyroid Disorder Additional Past Medical History / Comment(s): gluten intolerance, DVT in leg @age of 12- resulted in PE, Rt breast cancer diagnosis- Jan 2020.-CHEMO-last dose chemo August 2020-will start radiation 11-10-20 at [facility], ALOPECIA FROM CHEMO, PJP-lung infection 2020 History of Any Multi-Drug Resistant Organisms: C-DIFF Date of last positivie culture/infection: 2020 MDRO Source:: stool Past Surgical History: Appendectomy, Hysterectomy, Orthopedic Surgery Additional Past Surgical History / Comment(s): DONATED LEFT KIDNEY. breast reduction, abdominoplasty, right rotator cuff repair, right hand thumb arthroplasty, cataracts removed, Rt breast biopsy, PORT A CATH LT CHEST Past Anesthesia/Blood Transfusion Reactions: No Reported Reaction Smoking Status: Former smoker - Past Family History Mother Family Medical History: Cancer Additional Family Medical History / Comment(s): Non Hodgkins Lymphoma Medications and Allergies Home Medications Medication Instructions Recorded Confirmed Type Lysine 500 mg PO DAILY 01/21/15 10/09/20 History Levothyroxine Sodium [Synthroid] 68.5 mcg PO QAM 10/01/15 10/09/20 History Cholecalciferol [Vitamin D3 (25 25 mcg PO DAILY 10/28/18 10/09/20 History Mcg = 1000 Iu)] Calcium Carbonate [Calcium] 600 mg PO HS 07/16/19 10/09/20 History Magnesium 500 mg PO BID 07/16/19 10/09/20 History RABEprazole SODIUM [Aciphex] 20 mg PO QAM 07/16/19 10/09/20 History Albuterol Inhaler [Ventolin Hfa 2 puff INHALATION RT-QID PRN 03/14/20 10/09/20 History Inhaler] Metoprolol Succinate (ER) [Toprol 25 mg PO QAM 03/14/20 10/09/20 History Xl] Alirocumab [Praluent Pen] 150 mg SQ Q14D 06/30/20 10/09/20 History Losartan [Cozaar] 50 mg PO QAM 06/30/20 10/09/20 History Gabapentin 300 mg PO BID 10/09/20 10/09/20 History Naproxen Sodium [Aleve] 440 mg PO DAILY PRN 10/09/20 10/09/20 History Vitamin B Complex 2 cap PO BID 10/09/20 10/09/20 History Vitamin E (Dl,Tocopheryl Acet) 400 unit PO DAILY 10/09/20 10/09/20 History [Vitamin E (400 Iu = 180 mg)] Allergies Allergy/AdvReac Type Severity Reaction Status Date / Time cephalexin monohydrate Allergy Rash/Hives Verified 10/09/20 13:56 [From Keflex] hydromorphone HCl Allergy Anaphylaxis, Verified 10/09/20 13:56 [From Dilaudid] DYSPNEA ketorolac tromethamine Allergy Rash/Hives Verified 10/09/20 13:56 [From Toradol] Cyxmmxe-Bsw-Glu Reductase Allergy MUSCLE PAIN Verified 10/09/20 13:56 Inhibitor Sulfa (Sulfonamide Allergy Rash/Hives Verified 10/09/20 13:56 Antibiotics) tomato Allergy Rash/Hives Verified 10/09/20 13:56 tree nut Allergy Rash/Hives Verified 10/09/20 13:56 VICRYL SUTURES Allergy Mild PAIN AT Uncoded 10/09/20 13:56 INCISION SITE. Surgical - Exam Physical exam: General: Well-developed, well-nourished HEENT: Normocephalic, sclerae nonicteric Right breast: Previous scars noted, no palpable masses, no adenopathy Left breast: Previous scars noted, no palpable masses, no adenopathy Abdomen: Nontender, nondistended Extremities: No edema Neuro: Alert and oriented Assessment and Plan (1) Breast cancer, right Narrative/Plan: 75-year-old female with triple negative right breast cancer. We'll proceed with wire localization right breast lumpectomy with sentinel lymph node biopsy and i njection. Risks of bleeding, infection, scarring, dimpling, possible need for further surgery, recurrence, seroma, lymphedema, nerve injury, numbness, inability to perform sentinel lymph node biopsy requiring axillary node dissection. Patient understands and wishes to proceed Status: Acute Code(s): C50.911 - MALIGNANT NEOPLASM OF UNSP SITE OF RIGHT FEMALE BREAST SNOMED Code(s): 509211649
[~2020-10-13 08:01] MED LIST changes: +ACETAMINOPHEN TAB 500 MG TAB PO PRN; +DEXAMETHASONE SOD PHOSPHATE 4 MG/ML 1 ML VIAL IV ONE; +HEPARIN SODIUM,PORCINE/PF 5,000 UNIT/0.5 ML SYRINGE SQ PRN; +LIDOCAINE 1% (10MG/ML) FOR IV START INTRADERMA PRN; +ONDANSETRON 4 MG/2 ML VIAL IVP ONE; +Pre Op ABX Message 1 EACH MISC MISCELLANE ONE
[2020-10-13 09:15] LABS: Anisocytosis Slight; Basophils % (A) 0 %; Eosinophils # (A) 0.1 k/uL (0-0.7); Eosinophils % (A) 1 %; HCT 30.8 % (34.0-46.0); HGB 10.2 gm/dL (11.4-16.0); Hypochromasia Slight; Lymphocytes # (A) 0.8 k/uL (1.0-4.8); Lymphocytes % (A) 14 %; MCH 34.4 pg (25.0-35.0); MCHC 33.2 g/dL (31.0-37.0); MCV 103.8 fL (80.0-100.0); Macrocytosis Moderate; Mean Platelet Volume 7.7; Monocytes # (A) 0.4 k/uL (0-1.0); Monocytes % (A) 7 %; Neutrophils # (A) 4.2 k/uL (1.3-7.7); Neutrophils % (A) 74 %; Platelet Count 252 k/uL (150-450); Poikilocytosis Slight; RBC 2.97 m/uL (3.80-5.40); RDW 16.3 % (11.5-15.5); WBC 5.6 k/uL (3.8-10.6)
[2020-10-13 09:40] LABS: Albumin 3.5 g/dL (3.5-5.0); Calcium 9.2 mg/dL (8.4-10.2); Potassium 3.8 mmol/L (3.5-5.1); Total Bilirubin 0.5 mg/dL (0.2-1.3); Total Protein 5.8 g/dL (6.3-8.2)
[2020-10-13] MEDS ORDERED: LIDOCAINE 1% INJ 10MG/ML (20 ML MDV) SQ ONE (09:47)
[2020-10-13] MEDS ORDERED: MAGNESIUM SULFATE-D5W PMX 1 GM in DEXTROSE/WATER 1 100ML.BAG IVPB SCH ×2 (11:00→11:45)
[2020-10-13] MEDS ORDERED: [UNRECOGNIZED DRUG - OTHER] ONE (11:08)
[2020-10-13] MEDS ORDERED: SUCCINYLCHOLINE CHLORIDE 100 MG/5 ML SYR IV ONE (11:08)
[2020-10-13] MEDS ORDERED: ePHEDrine SULFATE/0.9% NACL/PF 50 MG/5 ML SYRINGE IV ONE (11:08)
[2020-10-13] MEDS ORDERED: PHENYLEPHRINE-0.9% NACL SYG 1,000 MCG/10 ML SYRINGE ONE (11:08)
[2020-10-13] MEDS ORDERED: fentaNYL (PF) 50 MCG/ML 2 ML AMP ONE (11:08)
[2020-10-13] MEDS ORDERED: MIDAZOLAM 2 MG/2 ML VIAL ONE (11:08)
[2020-10-13] MEDS ORDERED: LIDOCAINE 1% INJ 10MG/ML (20 ML MDV) ONE (11:08)
[2020-10-13] MEDS ORDERED: PROPOFOL 10 MG/ML 20 ML VIAL IV ONE (11:08)
[2020-10-13] MEDS ORDERED: SODIUM CHLORIDE 0.9% 50 ML with CLINDAMYCIN 600 MG IV ONE ×2 (11:30)
[2020-10-13] MEDS ORDERED: METHYLENE BLUE 10 MG/ML (10 ML VIAL) INJ ONE (12:33)
--- NOTE | 2020-10-13 12:46 | NM ---
EXAMINATION TYPE: NM sentinel node injection DATE OF EXAM: 10/13/2020 COMPARISON: 02/18/2020 HISTORY: 75-year-old female biopsy-proven right breast cancer status post neoadjuvant chemotherapy, r eferred for needle localization for excision. TECHNIQUE AND FINDINGS: The procedure of sentinel lymph node injection was explained to the patient. The benefits, alternatives, and risks were discussed. An informed consent was then obtained. Overlying skin is cleaned with sterile alcohol. Following this, 507 uCi Tc99m Tilmanocept was inject ed in the upper outer aspect of the right nipple intradermally. The patient tolerated the procedure well without any immediate complication. The patient was kept in the radiology department for short stay after the procedure and then taken to surgery for surgical p rocedure what is presumed intraoperative gamma probe will be used for sentinel lymph node detection. IMPRESSION: Right breast radiotracer injection for sentinel node localization as above.
[2020-10-13] MEDS ORDERED: ONDANSETRON 4 MG/2 ML VIAL IVP PRN (12:48)
[2020-10-13] MEDS ORDERED: HYDROcodone/APAP 5-325MG 1 EACH TAB PO PRN (12:48)
[2020-10-13] MEDS ORDERED: NALOXONE 0.4 MG/ML 1 ML VIAL IV PRN (12:48)
--- NOTE | 2020-10-13 12:48 | MM ---
EXAMINATION TYPE: MG pre op needle loc RT, MG surgical specimen RT DATE OF EXAM: 10/13/2020 COMPARISON: 02/15/2020 CLINICAL HISTORY: 75-year-old female with biopsy-proven right breast cancer status post neoadjuvant chemotherapy, referred for needle localization for excision. TECHNIQUE: Needle localization with wire placement and surgical excision of area of concern in the central right breast. FINDINGS: The procedure of needle localization with wire placement and than surgical excision was explained to the patient. Benefits, alternatives, and risks were discussed. An informed consent was then obtained. The shortest pathway for procedure was chosen. Shortest pathway was a lateral approach. The overlying skin was prepped and draped in usual sterile fashion. Lidocaine was used as anesthetic into the skin and subcutaneous tissue up to the level of area of concern. A 9 cm needle was used. It was placed via a lateral approach under mammographic guidance. Subsequent 90 degrees mammogram show the needle to be in satisfactory position relative to the targeted area. At this point, wire was placed and the needle was withdrawn. The wire was fixed to patient's skin. Images were marked for surgeon. The patient tolerated the procedure well without any immediate complication. The patient was kept in the radiology department for short stay after the procedure and then taken to surgery for surgical excision. Targeted clip, some residual posttreatment density, and wire are identified in specimen mammogram. The patient was kept in hospital for short stay after the procedure and then discharged home in stable condition. IMPRESSION: Successful, uncomplicated needle localization with wire placement and surgical excision of centrally located biopsy-proven site of right breast cancer, status post neoadjuvant chemotherapy. Full pathology results to follow. Pathology Results: Malignant A. RIGHT SENTINEL LYMPH NODES, EXCISION: Three sentinel lymph nodes, each negative for metastatic carcinoma. CK7 and BONNIE stains with appropriate controls on blocks A1 and A2 both negative for metastatic carcinoma. B. RIGHT BREAST, LATERAL POSTERIOR MARGIN, EXCISION: Benign breast tissue with fibrocystic change. Margins negative for in situ or invasive carcinoma. C. RIGHT BREAST, LUMPECTOMY: Residual invasive ductal carcinoma, Grade 2, status post neoadjuvant therapy (see Surgical Pathology Cancer Case Summary and Comment). All margins negative for carcinoma. Closest margin to invasive carcinoma: 4 mm from superior medial margin. Recommendation Surgical consult of the right breast. [facility]
--- NOTE | 2020-10-13 12:52 | P.OP ---
Date of Procedure: 10/13/20 Procedure(s) Performed: PREOPERATIVE DIAGNOSIS: Right breast cancer POSTOPERATIVE DIAGNOSIS: Same PROCEDURE: Right Breast wire localization lumpectomy with sentinel lymph node biopsy SURGEON: Aron EBL: Minimal ANESTHESIA: General COMPLICATIONS: None OPERATIVE PROCEDURE: Patient was placed on the operating room table in the supine position. 2 mL of methylene blue was injected into the subareolar space. The breast was then massaged for 5 minutes. The breast was prepped and draped in usual sterile fashion. The right axilla was addressed at that time. The hot spot in the right axilla was identified. A small curvilinear incision was made using the scalpel. Dissection down through the subcutaneous tissues took place using electrocautery. Using the neoprobe I identified a total of 4 sentinel lymph nodes. None of these were blue in color. These had benign exam characteristics. These were all removed and sent to pathology for permanent sectioning. The surgical site was inspected and no bleeding was seen. The subcutaneous tissues were closed using 3-0 Vicryl sutures. The skin was closed using 4-0 Monocryl sutures. The wire entrance site was then addressed. This was present at the 9:00 location. A curvilinear incision was made adjacent to the wire entrance site. I followed the wire down into the breast tissue. An adequate lumpectomy specimen then took place around the wire. Margins of 1.5-2 cm worth attempted to be achieved. Palpation of the specimen suggested that the posterior and lateral margins were somewhat close. I took an additional margin posteriorly and laterally and these margins were painted the appropriate color on the new margin side. The initial specimen was also painted the appropriate 6 colors. Clips were used to identify the lumpectomy cavity. The clip was confirmed to be within the lumpectomy specimen by radiology. The subcutaneous tissues were closed using 3-0 Vicryl sutures. The skin was closed using a running 4-0 Monocryl stitch. Skin glue was then applied. DISPOSITION: Stable to recovery room
[2020-10-13] MEDS: fentaNYL (PF) 50 MCG/ML 2 ML AMP IVP ONE ×2 (13:06→13:19)
[2020-10-13 13:13] VITALS: TEMP 97.6
[2020-10-13 13:26] VITALS: RESP 16
[2020-10-13] MEDS ORDERED: ONDANSETRON 4 MG/2 ML VIAL IVP ONE (14:20)
[2020-10-13] MEDS ORDERED: oxyCODONE-APAP 5-325MG 1 EACH TAB ONE (14:26)
[2020-10-13] MEDS ORDERED: oxyCODONE-APAP 5-325MG 1 EACH TAB PO ONE (14:29)
[2020-10-13 14:31] VITALS: BP 103/51; PULSE 77
== END 2020-10-13 14:47 | disposition home or self-care (01) ==
LOC: OR 08:01
PROVIDERS: ATTEND Surgery
DX: C50.411 Malignant neoplasm of upper-outer quadrant of right female breast (principal); E03.9 Hypothyroidism, unspecified; K21.9 Gastro-esophageal reflux disease without esophagitis; M19.90 Unspecified osteoarthritis, unspecified site; E07.9 Disorder of thyroid, unspecified; E78.5 Hyperlipidemia, unspecified; I10 Essential (primary) hypertension; Z86.711 Personal history of pulmonary embolism; Z79.01 Long term (current) use of anticoagulants; Z86.718 Personal history of other venous thrombosis and embolism; K90.41 Non-celiac gluten sensitivity; Z85.3 Personal history of malignant neoplasm of breast; Z92.21 Personal history of antineoplastic chemotherapy; Z87.891 Personal history of nicotine dependence; Z79.899 Other long term (current) drug therapy
CPT/HCPCS: 19301; 38500; 80053; 83735; 85025; 88342; 88307; 88341; 76098; 19281; 38792; A9520; J2250; J1100; J3475 ×2; J2405; J2001; Q9968; J3010; J2370; J0330; J2704; J1644

== ENCOUNTER → 2020-12-11 | Outpatient (CLI) | payer MEDICARE, OTHER ==
--- NOTE | 2020-12-11 21:18 | SFUN ---
SLEEP CENTER FOLLOW UP NOTE DATE OF SERVICE: 12/11/2020 This 75-year-old lady has been followed in Sleep Center for treatment of obstructive sleep apnea-hypopnea syndrome. The patient continues to use her machine. She did not use her machine for several days because of the chemotherapy she had. At present she is using her CPAP equipment every night. [place] Sleepiness Scale today is 5, which is normal. I checked her CPAP unit. Range of the pressure is from 5 to 15, average pressure 12.6, usage 23/30 nights and 16/30 nights for more than 4 hours with average 5.1 hours per night. Leak is 13 L/minute, which is borderline. Apnea-hypopnea index is 6.8, which is slightly increased. MEDICATIONS: 1. Levothyroxine 0.157 once a day. 2. Metoprolol 25 mg once a day. 3. Losartan/hydrochlorothiazide. 4. Gabapentin. 5. Aripiprazole. 6. . 7. Magnesium supplement. PHYSICAL EXAMINATION: GENERAL: Pleasant patient in no distress. VITAL SIGNS: BP 146/74, HR 83, RR 12, height 60 inches, weight 164 pounds, body mass index 32, temperature 97.2, oxygen saturation at room air 96%. HEENT: PERRLA, EOMI, evaluation of oropharynx showed tongue protrudes midline. Low position of soft palate; Mallampati III. NECK: Supple, no JVD. Thyroid is not palpable. LUNGS: Clear to percussion and to auscultation. Good air exchange. No wheezing or rhonchi. HEART: S1, S2 regular. No murmurs, gallops, or rubs. ABDOMEN: Slightly obese. EXTREMITIES: No clubbing or cyanosis. OPERATING ROOM AIDE: Awake, alert, and oriented X3. Cranial nerves 2 to 7 intact. There is no fasciculation or atrophy. noted. No focal deficits observed. IMPRESSION: 1. Obstructive sleep apnea-hypopnea syndrome. Patient is benefitting from CPAP treatment. Apnea-hypopnea index slightly increased. 2. Right breast carcinoma, status post recent radiation therapy, lumpectomy and chemotherapy. 3. Hypertension. 4. Hypothyroidism. 5. Status post total hysterectomy. 6. Status post left kidney nephrectomy for kidney donation. 7. Status post right-sided rotator cuff surgery. 8. History of low back problems. 9. History of neck pain. PLAN: 1. I changed the regimen in the machine to the pressure of 5 to 18 cm of water. 2. Patient will continue to use PAP equipment every night for the whole night. 3. Sleep hygiene with regular time in bed for at least 7-1/2 to 8 hours. 4. Precautions related to driving. No driving if feeling sleepiness. 5. I will maintain all necessary prescription for PAP supplies including mask, tube, filters. 6. Watching weight. 7. Follow-up visit in 6 months or earlier if patient has any problems. Thank you very much for allowing me to participate in the management of your patient. Sincerely, Wan Almaguer MD, PhD, FAASM Diplomat of [place] Board of [employer] Specialties Sleep Medicine Board of [place] Board of Internal Medicine Supervisor [employer] [facility] [place] [employer] / CECELIA: [id number] /
== END ==
LOC: SLEEP 16:16
PROVIDERS: ATTEND Internal Medicine
DX: G47.33 Obstructive sleep apnea (adult) (pediatric) (principal); I10 Essential (primary) hypertension; E03.9 Hypothyroidism, unspecified; Z85.3 Personal history of malignant neoplasm of breast; Z90.710 Acquired absence of both cervix and uterus

== ENCOUNTER → 2021-02-03 | Outpatient (CLI) | payer MEDICARE, OTHER ==
--- NOTE | 2021-02-03 13:50 | MM ---
Reason for exam: additional evaluation requested from prior study. Last mammogram was performed 1 year ago. History: Patient is postmenopausal and has history of breast cancer at age 75. Radiation therapy, November 2020. Malignant MG pre op needle loc RT of the right breast, October 13, 2020. Lumpectomy of the right breast, October 13, 2020. Chemotherapy, February 2020. Malignant US biopsy breast VAD RT of the right breast, February 18, 2020. Reductions of both breasts, 2014. Taking estrogen for 7 years. Physical Findings: Nurse did not find any significant physical abnormalities on exam. MG 3D Diag Mammo Wo Cad LT CC and MLO view(s) were taken of the left breast. Prior study comparison: February 18, 2020, right breast MG diagnostic mammo RT wo CAD. February 15, 2020, right breast MG 3d work up w/cad RT. There are scattered fibroglandular densities. There are benign appearing round vascular calcifications in the left breast. There is no new dominant lesion. These results were verbally communicated with the patient and result sheet given to the patient on 02/03/21. ASSESSMENT: Benign, BI-RAD 2 RECOMMENDATION: Follow-up diagnostic mammogram of both breasts in 5 months. Back on schedule for May 2020.
== END | disposition home or self-care (01) ==
LOC: RADMAMWWP 10:45
PROVIDERS: ATTEND Surgery
DX: Z85.3 Personal history of malignant neoplasm of breast (principal)
CPT/HCPCS: 77065; G0279; 77061

== ENCOUNTER → 2021-03-17 | Outpatient (CLI) | payer MEDICARE, OTHER ==
--- NOTE | 2021-03-17 11:34 | CT ---
EXAMINATION TYPE: CT chest w con DATE OF EXAM: 03/17/2021 COMPARISON: 03/06/2020 HISTORY: lung nodule CT DLP: 603 mGycm, Automated exposure control for dose reduction was used. CONTRAST: Performed injected with 80 mL of Isovue 300. TECHNIQUE: Axial images were obtained at 5 mm thick sections. Reconstructed images are reviewed on [email or web address] computer in the coronal plane. FINDINGS: There is some hypodensity within the left lobe thyroid. Ultrasound can further evaluate thi s. There appears to be an extra-axial density in the posterior left upper lung field measuring 1.8 cm. S eries 4 image 21. This appears smaller than comparison. No enlarged mediastinal or hilar adenopathy is evident. The ascending aorta diameter at the level o f the main pulmonary artery is 2.7 cm. The main pulmonary artery diameter at the bifurcation is 2.[address] sections are obtained through the upper abdomen. Some mild fatty infiltration diffusely wi thin the liver. Left kidney appears resected. IMPRESSIONS: 1. Posterior right upper lung field density is smaller than comparison. 2. Mild fatty infiltration of the liver.
== END | disposition home or self-care (01) ==
LOC: RADCTMAIN 08:08
PROVIDERS: ATTEND Internal Medicine Critical Care Medicine
DX: R91.1 Solitary pulmonary nodule (principal)
CPT/HCPCS: 82565; 84520; 71260; 36415; Q9967

== ENCOUNTER → 2021-04-29 | Outpatient (CLI) | payer MEDICARE, OTHER ==
[2021-04-29 19:00] LABS: Basophils # (A) 0.04 X 10*3/uL (0.00-0.10); Basophils % (A) 0.5 %; Eosinophils # (A) 0.18 X 10*3/uL (0.04-0.35); Eosinophils % (A) 2.2 %; HCT 40.9 % (37.2-46.3); HGB 12.9 g/dL (12.0-15.0); Immature Grans, Automated 0.9 %; Lymphocytes # (A) 1.15 X 10*3/uL (0.90-5.00); Lymphocytes % (A) 14.1 %; MCH 30.2 pg (27.0-32.0); MCHC 31.5 g/dL (32.0-37.0); MCV 95.8 fL (80.0-97.0); Mean Platelet Volume 9.6 fL (9.5-12.2); Monocytes # (A) 0.63 X 10*3/uL (0.20-1.00); Monocytes % (A) 7.7 %; NRBC Per 100 WBC 0 /100 WBCS (0.0-0.0); Neutrophils # (A) 6.06 X 10*3/uL (1.80-7.70); Neutrophils % (A) 74.6 %; Platelet Count 201 X 10*3/uL (140-440); RBC 4.27 X 10*6/uL (4.10-5.20); WBC 8.13 X 10*3/uL (4.50-10.00)
[2021-04-29 19:45] LABS: Anion Gap 13.4 mmol/L (10.00-18.00); BUN/Creat Ratio 12.33 Ratio (12.00-20.00); Blood Urea Nitrogen 12.7 mg/dL (9.0-27.0); Calcium 9.7 mg/dL (8.7-10.3); Carbon Dioxide 27.2 mmol/L (20.0-27.5); Non-African American GFR(CKD) 53.5 (60.0-200.0); Potassium 3.9 mmol/L (3.5-5.5)
== END | disposition home or self-care (01) ==
LOC: LABPAT 11:35
PROVIDERS: ATTEND Orthopaedic Surgery Hand Surgery
DX: G56.01 Carpal tunnel syndrome, right upper limb (principal)
CPT/HCPCS: 80048; 85025

== ENCOUNTER 2021-05-13 14:17 | Day surgery (SDC) | payer MEDICARE, OTHER ==
[2021-05-12 13:29] VITALS: BMI 31.5
--- NOTE | 2021-05-12 21:06 | P.HPOR ---
History of Present Illness H&P Date: 05/12/21 Chief Complaint: Right Recurrent carpal tunnel syndrome Subjective: This is a 75 year old female that presents today for initial evaluation regarding right hand paresthesias localized to the thumb, index, and middle fingers that has been worsening over the last several months. She has a history of a right carpal tunnel release by Dr. Joseph in 1972. She responded well to surgery at that time and had relief from her symptoms up until this year. She has a history of breast cancer and underwent chemotherapy and subsequently developed neuropathy, however, she states that this feels different than her neuropathy and feels more like imposed recurrent carpal tunnel syndrome on top of her neuropathy symptoms. She recently had a similar experience on her left side, where she underwent a revision left open carpal tunnel release by Dr. Healy with good results. She denies any new injury. Physical Examination: RUE: AIN/PIN/Radial/Ulnar/Median motor intact. Radial/Ulnar/Median SILT. 2+/4 Radial/Ulnar pulses palpated. 5/5 APB, 5/5 FDI. Negative Finkelsteins, negative CMC grind, positive Durkan's compression. Post surgical carpal tunnel scar faintly visible. Impression: 1.) Right recurrent carpal tunnel syndrome Plan: Diagnosis and treatment options were discussed with the patient. On exam today, she does have signs and symptoms consistent with recurrent right carpal tunnel syndrome. Due to the fact that it is now constant numbness and is interfering with her activities of daily living. I recommend a revision right open carpal tunnel release. Risks and benefits of surgery including bleeding, damage to surrounding tissue, need for further surgery, possible incomplete resolution of numbness were discussed and she wished to go forward with surgery. We will obtain preoperative labs and EKG and she will be scheduled for a right open revision carpal tunnel release in the near future. -Danilo Cardona DO Orthopedic Hand/Upper Extremity Surgeon Past Medical History Past Medical History: Cancer, Deep Vein Thrombosis (DVT), GERD/Reflux, Hyperlipidemia, Hypertension, Osteoarthritis (OA), Pulmonary Embolus (PE), Thyroid Disorder Additional Past Medical History / Comment(s): gluten intolerance, DVT in leg @age of 12, resulted in PE, Rt breast cancer diagnosis- Jan 2020. 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 History of Any Multi-Drug Resistant Organisms: C-DIFF Date of last positivie culture/infection: 2020 MDRO Source:: stool Past Surgical History: Appendectomy, Breast Surgery, Hysterectomy, Orthopedic Surgery Additional Past Surgical History / Comment(s): DONATED LEFT KIDNEY. breast reduction, abdominoplasty, right rotator cuff repair, right hand thumb arthroplasty, cataracts , Rt breast biopsy, RIGHT BREAST LUMPECTOMY ., PORT A CATH LT CHEST, left thumb and left ring finger arthroplasty, revison carpal tunnel left wrist. Past Anesthesia/Blood Transfusion Reactions: Motion Sickness, Postoperative Nausea & Vomiting (PONV) Past Psychological History: No Psychological Hx Reported Smoking Status: Former smoker Past Alcohol Use History: Occasional Additional Past Alcohol Use History / Comment(s): quit smoking 20 yrs ago, smoked 40 yrs. <ppd Past Drug Use History: None Reported - Past Family History Mother Family Medical History: Cancer Additional Family Medical History / Comment(s): Non Hodgkins Lymphoma Medications and Allergies Home Medications Medication Instructions Recorded Confirmed Type Lysine 500 mg PO DAILY 01/21/15 05/12/21 History Levothyroxine Sodium [Synthroid] 137 mcg PO QAM 10/01/15 05/12/21 History Cholecalciferol [Vitamin D3 (25 25 mcg PO DAILY 10/28/18 05/12/21 History Mcg = 1000 Iu)] Calcium Carbonate [Calcium] 600 mg PO HS 07/16/19 05/12/21 History RABEprazole SODIUM [Aciphex] 20 mg PO QAM 07/16/19 05/12/21 History Metoprolol Succinate (ER) [Toprol 25 mg PO QAM 03/14/20 05/12/21 History Xl] Alirocumab [Praluent Pen] 1 dose SQ Q14D 06/30/20 05/12/21 History Gabapentin 300 mg PO TID 10/09/20 05/12/21 History Naproxen Sodium [Aleve] 220 mg PO DIRECTED PRN 10/09/20 05/12/21 History Vitamin B Complex 2 cap PO TID 10/09/20 05/12/21 History Biotin 10,000 mcg PO DAILY 05/12/21 05/12/21 History L.acidoph,Paracasei, B.lactis 1 each PO DAILY 05/12/21 05/12/21 History [Probiotic] Losartan Potassium [Cozaar] 25 mg PO QAM 05/12/21 05/12/21 History Magnesium Chloride [Slow-Mag] 150 mg PO BID 05/12/21 05/12/21 History Vitamin C 3 tab PO DAILY 05/12/21 History Zoledronic Acid [Zometa] 0 mg IV DIRECTED 05/12/21 05/12/21 History hydroCHLOROthiazide 25 mg PO DAILY 05/12/21 05/12/21 History Allergies Allergy/AdvReac Type Severity Reaction Status Date / Time cephalexin monohydrate Allergy Rash/Hives Verified 05/12/21 12:40 [From Keflex] hydromorphone HCl Allergy Anaphylaxis, Verified 05/12/21 12:40 [From Dilaudid] DYSPNEA ketorolac tromethamine Allergy Rash/Hives Verified 05/12/21 12:40 [From Toradol] Hiokbpa-KHY-MmU Reductase Allergy MUSCLE PAIN Verified 05/12/21 12:40 Inhibitor [Lboszaa-Wro-Kgw Reductase Inhibitor] Sulfa (Sulfonamide Allergy Rash/Hives Verified 05/12/21 12:40 Antibiotics) tomato Allergy Rash/Hives Verified 05/12/21 12:40 tree nut Allergy Rash/Hives Verified 05/12/21 12:40 VICRYL SUTURES Allergy Mild abcess at Uncoded 05/12/21 12:40 incision site Physical Examination Osteopathic Statement: *. No significant issues noted on an osteopathic structural exam other than those noted in the History and Physical/Consult.
[~2021-05-13 14:17] MED LIST changes: -ACETAMINOPHEN TAB 500 MG TAB PO PRN; -DEXAMETHASONE SOD PHOSPHATE 4 MG/ML 1 ML VIAL IV ONE; -HEPARIN SODIUM,PORCINE/PF 5,000 UNIT/0.5 ML SYRINGE SQ PRN; +HYDROmorphone 0.5 MG/0.5 ML SYRINGE IVP PRN
[2021-05-13 15:05] VITALS: TEMP 96.1
[2021-05-13] MEDS ORDERED: BUPIVACAINE (PF) 0.5% 30 ML VIAL SQ ONE ×2 (15:51→16:05)
[2021-05-13] MEDS ORDERED: LIDOCAINE 1% INJ 10MG/ML (20 ML MDV) SQ ONE ×2 (15:52→16:05)
[2021-05-13] MEDS ORDERED: PROPOFOL 10 MG/ML 20 ML VIAL IV ONE (15:55)
[2021-05-13] MEDS ORDERED: KETAMINE 10 MG/ML 20 ML VIAL ONE (15:55)
[2021-05-13] MEDS ORDERED: MIDAZOLAM 2 MG/2 ML VIAL ONE (15:55)
[2021-05-13] MEDS ORDERED: fentaNYL (PF) 50 MCG/ML 2 ML AMP ONE (15:55)
[2021-05-13] MEDS ORDERED: LIDOCAINE 1% INJ 10MG/ML (20 ML MDV) ONE (15:55)
[2021-05-13 17:23] VITALS: BP 114/63; PULSE 65; RESP 20
--- NOTE | 2021-05-14 11:57 | P.OP ---
Date of Procedure: 05/13/21 Preoperative Diagnosis: 1.) Right recurrent carpal tunnel syndrome Postoperative Diagnosis: 1.) Right recurrent carpal tunnel release Procedure(s) Performed: 1.) Right revision open carpal tunnel release Anesthesia: MAC Surgeon: Danilo Cardona Gear Inspector #1: Bubba Weinberg Estimated Blood Loss (ml): 0 Pathology: none sent Condition: stable Disposition: PACU Description of Procedure: This is a 75 year old female who presents today for a right revision open carpal tunnel release after having failed conservative treatment in the past. Her original open carpal tunnel release was performed over 30 years prior. Risks and benefits of surgery were discussed with the patient including bleeding, damage to surrounding tissue, infection, need for further surgery as well as risks of anesthesia including pulmonary embolism and even and the patient wished to proceed with surgical intervention. The patients was seen in the pre- operative area by myself. Consent and H&P were completed and updated. The correct extremity was marked in the pre-operative area by myself and all other questions were answered. Operative Narrative: The patient was brought to the operating room by the department of anesthesia. They remained on the portable stretcher and a rolling hand table was brought to the side of the operative extremity. Pre-operative time out was performed indicating the correct patient, procedure and laterality. All in the room agreed. The patient was then drifted off to sleep by the department of anesthesia. MAC anesthesia was utilized and a 50:50 mixture of 1% Lidocaine and 0.5% bupivacaine was injected into the subcutaneous tissues of the palmar skin, 9ccs total. A nonsterile tourniquet was then applied to the operative extremity and the right upper extremity was then prepped and draped in normal sterile fashion. The operative extremity was the exsanguinated with an esmarch bandage and the tourniquet was inflated to 250mmHg. 15 blade scalpel was utilized to make a longitudinal incision on the palmar skin in line with the radial boarder of the ring finger to a point distally at the intersection of Kaplans cardinal line. Heiss retractor was utilized to spread subcutaneous tissue and scalpel was used to cut through the superficial palmar fascia to reveal the transverse carpal ligament. The transverse carpal ligament was then sharply incised in line with the incision and tenotomy scissors were used to spread distally and the distal portion of the transverse carpal ligament was released using tenotomy scissors from distal to proximal under direct visualization. The median nerve was directly visualized and was intact. Proximal fascia of the distal forearm was also released under direct visualization taking care to preserve the palmar cutaneous branch of the median nerve. The wound was then closed with 4-0 nylon suture in a horizontal mattress fashion. Sterile dressing was applied consisting of adaptic, 4x4s, webril, and an arely bandage. Tourniquet was let down and the hand immediately was well perfused. The patient was then woken by the department of anesthesia and transferred to PACU in stable condition. Bubba VELIZ was present during the case for skilled assistance and protection of vital neurovascular structures. Danilo Cardona D.O. Orthopedic Hand/Upper Extremity Surgeon
== END 2021-05-13 17:15 | disposition home or self-care (01) ==
LOC: OR 14:17
PROVIDERS: ATTEND Orthopaedic Surgery Hand Surgery
DX: G56.01 Carpal tunnel syndrome, right upper limb (principal); Z85.3 Personal history of malignant neoplasm of breast; Z92.21 Personal history of antineoplastic chemotherapy; K21.9 Gastro-esophageal reflux disease without esophagitis; I10 Essential (primary) hypertension; E03.9 Hypothyroidism, unspecified; M19.90 Unspecified osteoarthritis, unspecified site; Z86.718 Personal history of other venous thrombosis and embolism; E78.5 Hyperlipidemia, unspecified; Z86.711 Personal history of pulmonary embolism; Z92.3 Personal history of irradiation; L65.8 Other specified nonscarring hair loss; Z90.5 Acquired absence of kidney; Z52.4 Kidney donor; Z86.16 Personal history of COVID-19; Z95.828 Presence of other vascular implants and grafts; Z86.19 Personal history of other infectious and parasitic diseases; Z90.49 Acquired absence of other specified parts of digestive tract; Z90.710 Acquired absence of both cervix and uterus; Z98.890 Other specified postprocedural states; Z98.49 Cataract extraction status, unspecified eye; Z96.692 Finger-joint replacement of left hand; Z87.891 Personal history of nicotine dependence; Z80.7 Family history of other malignant neoplasms of lymphoid, hematopoietic and related tissues; Z79.890 Hormone replacement therapy; Z79.899 Other long term (current) drug therapy; Z88.5 Allergy status to narcotic agent; Z91.018 Allergy to other foods; Z88.2 Allergy status to sulfonamides; Z88.8 Allergy status to other drugs, medicaments and biological substances; Z91.09 Other allergy status, other than to drugs and biological substances
CPT/HCPCS: 64721; J2250; J2405; J2001; J3010; J2704

== ENCOUNTER → 2021-06-08 | Outpatient (CLI) | payer MEDICARE, OTHER ==
--- NOTE | 2021-06-08 11:47 | MM ---
Reason for exam: additional evaluation requested from prior study. Last mammogram was performed 4 months ago. History: Patient is postmenopausal and has history of breast cancer at age 75. Radiation therapy, November 2020. Malignant MG pre op needle loc RT of the right breast, October 13, 2020. Lumpectomy of the right breast, October 13, 2020. Chemotherapy, February 2020. Malignant US biopsy breast VAD RT of the right breast, February 18, 2020. Reductions of both breasts, 2014. Took estrogen for 7 years. Physical Findings: A clinical breast exam by your physician is recommended on an annual basis and results should be correlated with mammographic findings. MG 3D Diag Mammo W/Cad ANIKA Bilateral CC and MLO view(s) were taken. Prior study comparison: February 03, 2021, left breast MG 3d diag mammo wo cad LT. February 18, 2020, right breast MG diagnostic mammo RT wo CAD. The breast tissue is heterogeneously dense. This may lower the sensitivity of mammography. Stable benign calcifications. Stable post lumpectomy changes right breast. No significant new findings when compared with previous films. Results were given to the patient verbally at the time of the exam. ASSESSMENT: Benign, BI-RAD 2 RECOMMENDATION: Follow-up diagnostic mammogram of both breasts in 1 year.
== END | disposition home or self-care (01) ==
LOC: RADMAMWWP 10:50
PROVIDERS: ATTEND Surgery
DX: R92.8 Other abnormal and inconclusive findings on diagnostic imaging of breast (principal)
CPT/HCPCS: 77066; G0279; 77062

== ENCOUNTER 2021-07-21 08:53 | Day surgery (SDC) | payer MEDICARE, OTHER ==
[2021-07-20 09:28] VITALS: BMI 31.7
[~2021-07-21 08:53] MED LIST changes: -HYDROmorphone 0.5 MG/0.5 ML SYRINGE IVP PRN; -ONDANSETRON 4 MG/2 ML VIAL IVP ONE; -Pre Op ABX Message 1 EACH MISC MISCELLANE ONE
[2021-07-21 09:26] VITALS: TEMP 97.5
[2021-07-21] MEDS ORDERED: PROPOFOL 10 MG/ML 20 ML VIAL IV ONE (09:46)
--- NOTE | 2021-07-21 09:49 | P.GSHP ---
History of Present Illness H&P Date: 07/21/21 Chief Complaint: Colon cancer screening 75-year-old female here today for colonoscopy. Last colonoscopy 7 years ago. Family history of colon cancer in her brother and patient has a personal history of breast cancer. No bowel complaints. Past Medical History Past Medical History: Cancer, Deep Vein Thrombosis (DVT), GERD/Reflux, Hyperlipidemia, Hypertension, Osteoarthritis (OA), Pneumonia, Pulmonary Embolus (PE), Thyroid Disorder Additional Past Medical History / Comment(s): gluten intolerance, DVT in leg @age of 12, resulted in PE, Rt breast cancer diagnosis- Jan 2020. 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 History of Any Multi-Drug Resistant Organisms: C-DIFF Date of last positivie culture/infection: 2020 MDRO Source:: stool Past Surgical History: Appendectomy, Breast Surgery, Hysterectomy, Orthopedic Surgery Additional Past Surgical History / Comment(s): DONATED LEFT KIDNEY. breast reduction, abdominoplasty, right rotator cuff repair, right hand thumb arthroplasty, cataracts , Rt breast biopsy, RIGHT BREAST LUMPECTOMY ., PORT A CATH LT CHEST, left thumb and left ring finger arthroplasty, revison carpal tunnel left wrist, neuropathy. Past Anesthesia/Blood Transfusion Reactions: Motion Sickness, Postoperative Nausea & Vomiting (PONV) Past Psychological History: No Psychological Hx Reported Smoking Status: Former smoker Past Alcohol Use History: Occasional Additional Past Alcohol Use History / Comment(s): quit smoking 20 yrs ago, smoked 40 yrs. <ppd Past Drug Use History: None Reported - Past Family History Mother Family Medical History: Cancer Additional Family Medical History / Comment(s): Non Hodgkins Lymphoma Medications and Allergies Home Medications Medication Instructions Recorded Confirmed Type Lysine 500 mg PO DAILY 01/21/15 07/21/21 History Levothyroxine Sodium [Synthroid] 0.5 tab PO QAM 10/01/15 07/21/21 History Metoprolol Succinate (ER) [Toprol 25 mg PO QAM 03/14/20 07/21/21 History Xl] Gabapentin 300 mg PO TID 10/09/20 07/21/21 History Vitamin B Complex 2 cap PO DAILY 10/09/20 07/21/21 History L.acidoph,Paracasei, B.lactis 1 each PO DAILY 05/12/21 07/21/21 History [Probiotic] Losartan Potassium [Cozaar] 25 mg PO QAM 05/12/21 07/21/21 History Magnesium Chloride [Slow-Mag] 150 mg PO BID 05/12/21 07/21/21 History RABEprazole SODIUM [Aciphex] 20 mg PO DAILY 07/20/21 07/21/21 History aMILoride HCL 5 mg PO DAILY 07/20/21 07/21/21 History Alirocumab [Praluent Pen] 1 injection SQ DIRECTED 07/21/21 07/21/21 History Allergies Allergy/AdvReac Type Severity Reaction Status Date / Time cephalexin monohydrate Allergy Rash/Hives Verified 07/21/21 09:26 [From Keflex] hydromorphone HCl Allergy Anaphylaxis, Verified 07/21/21 09:26 [From Dilaudid] DYSPNEA ketorolac tromethamine Allergy Rash/Hives Verified 07/21/21 09:26 [From Toradol] Hodfmeb-ORF-WbC Reductase Allergy MUSCLE PAIN Verified 07/21/21 09:26 Inhibitor [Srlwkoi-Qqf-Aie Reductase Inhibitor] Sulfa (Sulfonamide Allergy Rash/Hives Verified 07/21/21 09:26 Antibiotics) tomato Allergy Rash/Hives Verified 07/21/21 09:26 tree nut Allergy Rash/Hives Verified 07/21/21 09:26 VICRYL SUTURES Allergy Mild abcess at Uncoded 07/21/21 09:26 incision site Surgical - Exam Vital Signs Temp Pulse Resp BP Pulse Ox 97.5 F L 69 16 150/74 97 07/21/21 09:25 07/21/21 09:25 07/21/21 09:25 07/21/21 09:25 07/21/21 09:25 Physical exam: General: Well-developed, well-nourished HEENT: Normocephalic, sclerae nonicteric Abdomen: Nontender, nondistended Extremities: No edema Neuro: Alert and oriented Assessment and Plan (1) Colon cancer screening Narrative/Plan: Will proceed with colonoscopy Current Visit: Yes Status: Acute Code(s): Z12.11 - ENCOUNTER FOR SCREENING FOR MALIGNANT NEOPLASM OF COLON SNOMED Code(s): 597125949
--- NOTE | 2021-07-21 10:08 | P.PCN ---
Date of Procedure: 07/21/21 Procedure(s) Performed: PREOPERATIVE DIAGNOSIS: Family history of colon cancer, screening POSTOPERATIVE DIAGNOSIS: Diverticulosis PROCEDURE: Colonoscopy ANESTHESIA: MAC SURGEON: Broderick Sharp M.D. SPECIMENS: None ENDOSCOPIC PROCEDURE: The patient was placed on the endoscopy table in the left decubitus position. The Olympus colonoscope was inserted into the anus and passed under direct visualization to the base of the cecum. The appendiceal orifice was visualized. From that point the scope was slowly withdrawn inspecting all surfaces carefully. There were no neoplastic inflammatory or polypoid lesions throughout the cecum, ascending, transverse, descending, sigmoid and rectum. There was mild left-sided diverticulosis noted. Digital rectal examination was normal. The patient was taken to the recovery room in stable condition per anesthesia guidelines. RECOMMENDATIONS: Resume diet. Follow-up colonoscopy 5 years.
[2021-07-21 10:10] VITALS: RESP 18
[2021-07-21 10:26] VITALS: BP 136/70; PULSE 75
== END 2021-07-21 10:59 | disposition home or self-care (01) ==
LOC: ORWHC2ENDO 08:53
PROVIDERS: ATTEND Surgery
DX: Z12.11 Encounter for screening for malignant neoplasm of colon (principal); K57.90 Diverticulosis of intestine, part unspecified, without perforation or abscess without bleeding; E03.9 Hypothyroidism, unspecified; E78.5 Hyperlipidemia, unspecified; I10 Essential (primary) hypertension; K21.9 Gastro-esophageal reflux disease without esophagitis; M19.90 Unspecified osteoarthritis, unspecified site; Z80.0 Family history of malignant neoplasm of digestive organs; Z85.3 Personal history of malignant neoplasm of breast; Z86.16 Personal history of COVID-19; Z86.711 Personal history of pulmonary embolism; Z87.891 Personal history of nicotine dependence; Z88.1 Allergy status to other antibiotic agents; Z88.2 Allergy status to sulfonamides; Z88.5 Allergy status to narcotic agent; Z88.8 Allergy status to other drugs, medicaments and biological substances; Z90.49 Acquired absence of other specified parts of digestive tract
CPT/HCPCS: 45378; J2704

== ENCOUNTER → 2021-08-12 | Outpatient (CLI) | payer MEDICARE, OTHER ==
--- NOTE | 2021-08-12 23:35 | CT ---
EXAMINATION TYPE: CT chest w con DATE OF EXAM: 08/12/2021 COMPARISON: CT dated 03/17/2021 HISTORY: Pleurodynia CT DLP: 341.3 mGycm Automated exposure control for dose reduction was used. TECHNIQUE: CT scan of the chest is performed with IV Contrast, patient injected with 80ml mL of Isovue 300 FINDINGS: LUNGS: Stable 29 mm fat-containing lesion at the superior-posterior aspect of the right pleura/chest wall. Unremarkable remainder of the lungs. Patent trachea and main bronchi. No pleural effusion, calc ification or other effusion. MEDIASTINUM: There are no greater than 1 cm hilar or mediastinal lymph nodes. Cardiomegaly. Coronary and arterial atherosclerotic calcifications. No pericardial effusion is seen. OTHER: Grossly stable left thyroid lobe posterior nodule. Questionable hepatic steatosis. Contracted gallbladder. Postsurgical changes in the right breast. Left upper chest wall Port-A-Cath. Right post erior fat-containing diaphragmatic hernia. No grossly aggressive bone lesion. IMPRESSION: Stable 2.9 cm fat-containing lesion at the superior posterior aspect of the right pleura/chest wall, possibly representing a lipoma. No new suspicious or progressive lung lesion. Other findings as descr ibed above.
== END | disposition home or self-care (01) ==
LOC: RADCTMAIN 15:18
PROVIDERS: ATTEND Surgery
DX: R07.81 Pleurodynia (principal)
CPT/HCPCS: 82565; 84520; 71260; 36415; Q9967

== ENCOUNTER 2021-09-17 09:19 | Day surgery (SDC) | payer MEDICARE, OTHER ==
[2021-09-17 09:55] VITALS: RESP 14; TEMP 97.6
--- NOTE | 2021-09-17 10:45 | US ---
ULTRASOUND GUIDED FNA THYROID BIOPSY: CLINICAL HISTORY: Left thyroid nodule FINDINGS: The procedure was explained to the patient. The risks, complications, benefits and alternatives were discussed and any questions were answered. Informed consent was obtained. Patient was placed supin e on the ultrasound table and prepped and draped in the usual sterile fashion. Utilizing a 25 gauge needle, five passes were made into the requested left thyroid nodule. Patient was stable throughout the procedure. Pathology is pending. All elements of maximal barrier technique were utilized. IMPRESSION: 1. Successful ultrasound guided FNA thyroid biopsy.
[2021-09-17 10:53] VITALS: BP 131/63; PULSE 64
== END 2021-09-17 10:43 | disposition home or self-care (01) ==
LOC: RADPROMAIN 09:19
PROVIDERS: ATTEND Family Medicine
DX: E04.1 Nontoxic single thyroid nodule (principal); Z88.3 Allergy status to other anti-infective agents; Z88.5 Allergy status to narcotic agent; Z88.6 Allergy status to analgesic agent; Z88.8 Allergy status to other drugs, medicaments and biological substances; Z88.2 Allergy status to sulfonamides; Z91.018 Allergy to other foods; Z91.09 Other allergy status, other than to drugs and biological substances; Z79.890 Hormone replacement therapy; Z79.899 Other long term (current) drug therapy; Z87.891 Personal history of nicotine dependence; Z80.0 Family history of malignant neoplasm of digestive organs; Z80.7 Family history of other malignant neoplasms of lymphoid, hematopoietic and related tissues
CPT/HCPCS: 10005; 88173; 88305

== ENCOUNTER 2021-09-24 17:51 | Emergency (ER) | payer MEDICARE, OTHER ==
[2021-09-24] MEDS ORDERED: SODIUM CHLORIDE 0.9% 500 ML 500 ML IV STA (18:14)
[2021-09-24] MEDS ORDERED: ONDANSETRON 4 MG/2 ML VIAL IVP STA ×3 (18:21→20:31)
[2021-09-24] MEDS ORDERED: MORPHINE SULFATE 4 MG/ML SYRINGE IVP STA ×2 (18:21→20:21)
[2021-09-24 18:40] LABS: Basophils % (A) 0 %; Eosinophils # (A) 0.2 k/uL (0-0.7); Eosinophils % (A) 3 %; HCT 36.9 % (34.0-46.0); HGB 12.3 gm/dL (11.4-16.0); Lymphocytes # (A) 1.1 k/uL (1.0-4.8); Lymphocytes % (A) 16 %; MCH 31.7 pg (25.0-35.0); MCHC 33.3 g/dL (31.0-37.0); MCV 95.3 fL (80.0-100.0); Mean Platelet Volume 7.3; Monocytes # (A) 0.4 k/uL (0-1.0); Monocytes % (A) 5 %; Neutrophils % (A) 73 %; Platelet Count 247 k/uL (150-450); RBC 3.87 m/uL (3.80-5.40); RDW 13.8 % (11.5-15.5); WBC 6.8 k/uL (3.8-10.6)
[2021-09-24 18:53] LABS: ALT 21 U/L (4-34); AST 29 U/L (14-36); African American GFR (CKD) 65 (>60 ml/min/1.73 sqM); Albumin 3.7 g/dL (3.5-5.0); Alcohol <10 mg/dL; Alkaline Phosphatase 107 U/L (38-126); Anion Gap 5 mmol/L; Blood Urea Nitrogen 16 mg/dL (7-17); Carbon Dioxide 25 mmol/L (22-30); Chloride 108 mmol/L (98-107); Glucose 100 mg/dL (74-99); Non-African American GFR(CKD) 56 (>60 ml/min/1.73 sqM); Potassium 4.5 mmol/L (3.5-5.1); Sodium 138 mmol/L (137-145); Total Bilirubin 0.2 mg/dL (0.2-1.3); Total Protein 6.1 g/dL (6.3-8.2)
[2021-09-24 18:55] LABS: INR 0.9 (<1.2); Partial Thromboplastin Time 23.9 sec (22.0-30.0); Prothrombin Time 10.1 sec (9.0-12.0)
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
[2021-09-24 20:25] VITALS: RESP 18
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
--- NOTE | 2021-09-24 20:39 | XR ---
PROCEDURE: XR shoulder complete BILAT - 4V DATE AND TIME: 09/24/2021 8:19 PM CLINICAL INDICATION: PH[facility]; fall, pain TECHNIQUE: 4 total views COMPARISON: None FINDINGS: There is no fracture or malalignment. The soft tissues are unremarkable. IMPRESSION: NO ACUTE PROCESS, BILATERAL SHOULDERS.
--- NOTE | 2021-09-24 20:43 | XR ---
PROCEDURE: XR humerus LT - 2V DATE AND TIME: 09/24/2021 8:19 PM CLINICAL INDICATION: PH[facility]; fall, pain TECHNIQUE: Department protocol COMPARISON: None FINDINGS: There is no fracture or malalignment. The soft tissues are unremarkable. IMPRESSION: NO ACUTE PROCESS.
--- NOTE | 2021-09-24 21:14 | XR ---
PROCEDURE: XR forearm LT - 2V DATE AND TIME: 09/24/2021 8:19 PM CLINICAL INDICATION: [facility]; fall, pain TECHNIQUE: Department protocol COMPARISON: None FINDINGS: There is no fracture or malalignment. The soft tissues are unremarkable. IMPRESSION: NO ACUTE PROCESS.
--- NOTE | 2021-09-24 21:16 | XR ---
PROCEDURE: XR elbow complete LT - 3V DATE AND TIME: 09/24/2021 8:19 PM CLINICAL INDICATION: [facility]; fall, pain TECHNIQUE: Department protocol COMPARISON: None FINDINGS: There is no fracture or malalignment. The soft tissues are unremarkable. IMPRESSION: NO ACUTE PROCESS.
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
[2021-09-24 21:41] VITALS: BP 135/62; PULSE 65; TEMP 97.6
== END 2021-09-24 21:44 | disposition home or self-care (01) ==
LOC: EC 17:51
DX: M79.18 Myalgia, other site (principal); M25.512 Pain in left shoulder; M25.511 Pain in right shoulder; M54.9 Dorsalgia, unspecified; Z87.891 Personal history of nicotine dependence; I10 Essential (primary) hypertension; M19.90 Unspecified osteoarthritis, unspecified site; K21.9 Gastro-esophageal reflux disease without esophagitis; E07.9 Disorder of thyroid, unspecified; Z91.09 Other allergy status, other than to drugs and biological substances; Z91.018 Allergy to other foods; Z88.8 Allergy status to other drugs, medicaments and biological substances; Z88.2 Allergy status to sulfonamides; Z88.6 Allergy status to analgesic agent; Z88.5 Allergy status to narcotic agent; Z79.899 Other long term (current) drug therapy; Z79.890 Hormone replacement therapy; V03.10XA Pedestrian on foot injured in collision with car, pick-up truck or van in traffic accident, initial encounter
CPT/HCPCS: 36415; 80053; 85025; 85610; 85730; 80320; 73030; 72170; 73060; 73080; 73090; 71045; 72129; 72125; 72132; 70450; 71260; 74177; 99285; 96374; 96375; 96376; J2270; J2405; Q9967

== ENCOUNTER → 2021-12-07 | Outpatient (CLI) | payer MEDICARE, OTHER ==
[2021-12-07 10:43] LABS: ALT 24 U/L (8-44); AST 27 U/L (13-35); African American GFR (CKD) 52.8 (60.0-200.0); Albumin 4.3 g/dL (3.8-4.9); Albumin/Globulin Ratio 1.65 (1.60-3.17); Alkaline Phosphatase 108 U/L (41-126); BUN/Creat Ratio 15.64 Ratio (12.00-20.00); Blood Urea Nitrogen 18.3 mg/dL (9.0-27.0); Carbon Dioxide 26.3 mmol/L (20.0-27.5); Chloride 106 mmol/L (96-109); Chol/HDL Ratio 2.06 Ratio; Globulin 2.6 g/dL (1.6-3.3); Glucose 106 mg/dL (70-110); LDL Cholesterol,Calculated 46.9 mg/dL (0.0-131.0); Non-African American GFR(CKD) 45.6 (60.0-200.0); Potassium 4.9 mmol/L (3.5-5.5); Sodium 142 mmol/L (135-145); Total Protein 6.9 g/dL (6.2-8.2)
== END | disposition home or self-care (01) ==
LOC: LABWHC1 06:58
PROVIDERS: ATTEND Internal Medicine Interventional Cardiology
DX: I11.0 Hypertensive heart disease with heart failure (principal); E78.2 Mixed hyperlipidemia
CPT/HCPCS: 36415; 80053; 80061

== ENCOUNTER 2021-12-11 22:29 | Emergency (ER) | payer MEDICARE, OTHER ==
[2021-12-11 23:13] VITALS: TEMP 98
[2021-12-12 00:28] LABS: Basophils % (A) 0 %; Eosinophils # (A) 0.2 k/uL (0-0.7); Eosinophils % (A) 2 %; HCT 36.9 % (34.0-46.0); HGB 12.6 gm/dL (11.4-16.0); Lymphocytes # (A) 1.5 k/uL (1.0-4.8); Lymphocytes % (A) 18 %; MCH 32.1 pg (25.0-35.0); MCV 94.3 fL (80.0-100.0); Mean Platelet Volume 7.5; Monocytes # (A) 0.5 k/uL (0-1.0); Monocytes % (A) 6 %; Neutrophils # (A) 5.8 k/uL (1.3-7.7); Neutrophils % (A) 71 %; Platelet Count 237 k/uL (150-450); RBC 3.91 m/uL (3.80-5.40); RDW 12.7 % (11.5-15.5); WBC 8.1 k/uL (3.8-10.6)
[2021-12-12 01:28] LABS: Albumin 4.1 g/dL (3.5-5.0); Calcium 9.2 mg/dL (8.4-10.2); Potassium 4.5 mmol/L (3.5-5.1); Total Bilirubin 0.2 mg/dL (0.2-1.3); Total Protein 6.3 g/dL (6.3-8.2)
--- NOTE | 2021-12-12 01:35 | ED ---
Recheck HPI - General Chief Complaint: Recheck/Abnormal Lab/Rx Stated Complaint: high potassium, pcp sent Time Seen by Provider: 12/11/21 23:15 Source: patient Mode of arrival: ambulatory Limitations: no limitations - History of Present Illness Initial Comments: This patient is 76-year-old woman who presents to have evaluation for suspected hyperkalemia. The patient states she had a routine blood draw as part of normal follow-up, and that tonight after that she had a call from the physician telling her that the potassium was 6 and that she needed to be checked at emergency department. The patient denies having any symptoms. She has no fatigue or weakness. She has had no chest pain, palpitations, dyspnea or diaphoresis. No change in urination. MD Complaint: abnormal lab Onset/Timin -: days(s) Returns Today for: Called Because of Abnormal Lab/Test Context: called for abnormal lab result Associated Symptoms: none - Related Data Home Medications Medication Instructions Recorded Confirmed Lysine 500 mg PO DAILY 01/21/15 09/17/21 Levothyroxine Sodium [Synthroid] 0.5 tab PO QAM 10/01/15 09/17/21 Metoprolol Succinate (ER) [Toprol 25 mg PO QAM 03/14/20 09/17/21 Xl] Gabapentin 300 mg PO TID 10/09/20 09/17/21 Vitamin B Complex 2 cap PO DAILY 10/09/20 09/17/21 L.acidoph,Paracasei, B.lactis 1 each PO DAILY 05/12/21 09/17/21 [Probiotic] Losartan Potassium [Cozaar] 25 mg PO QAM 05/12/21 09/17/21 Magnesium Chloride [Slow-Mag] 150 mg PO BID 05/12/21 09/17/21 RABEprazole SODIUM [Aciphex] 20 mg PO DAILY 07/20/21 09/17/21 aMILoride HCL 5 mg PO DAILY 07/20/21 09/17/21 Alirocumab [Praluent Pen] 1 injection SQ DIRECTED 07/21/21 09/17/21 Naproxen Sodium [Naproxen Sodium 375 mg PO DAILY 08/21/21 09/17/21 ER] Previous Rx's Medication Instructions Recorded Lidocaine 5% Patch [Lidoderm 5% 1 patch TOPICAL DAILY PRN 7 Days 09/24/21 Patch] #7 patch Allergies Allergy/AdvReac Type Severity Reaction Status Date / Time cephalexin monohydrate Allergy Rash/Hives Verified 12/11/21 23:13 [From Keflex] hydromorphone HCl Allergy Anaphylaxis, Verified 12/11/21 23:13 [From Dilaudid] DYSPNEA ketorolac tromethamine Allergy Rash/Hives Verified 12/11/21 23:13 [From Toradol] Dpnezny-SAY-YgS Reductase Allergy MUSCLE PAIN Verified 12/11/21 23:13 Inhibitor [Yikvpuh-Beg-Upd Reductase Inhibitor] Sulfa (Sulfonamide Allergy Rash/Hives Verified 12/11/21 23:13 Antibiotics) tomato Allergy Rash/Hives Verified 12/11/21 23:13 tree nut Allergy Rash/Hives Verified 12/11/21 23:13 VICRYL SUTURES Allergy Mild abcess at Uncoded 12/11/21 23:13 incision site Review of Systems ROS Statement: Those systems with pertinent positive or pertinent negative responses have been documented in the HPI. ROS Other: All systems not noted in ROS Statement are negative. Constitutional: Denies: fever, chills Respiratory: Denies: cough, dyspnea Cardiovascular: Denies: chest pain, palpitations, edema, syncope Gastrointestinal: Denies: abdominal pain, vomiting, diarrhea, constipation Genitourinary: Denies: dysuria, hematuria Musculoskeletal: Denies: back pain Skin: Denies: rash Neurological: Denies: headache, weakness Past Medical History Past Medical History: Cancer, Deep Vein Thrombosis (DVT), GERD/Reflux, Hyperlipidemia, Hypertension, Osteoarthritis (OA), Pulmonary Embolus (PE), Thyroid Disorder Additional Past Medical History / Comment(s): gluten intolerance, DVT in leg @age of 12, resulted in PE, Rt breast cancer diagnosis- Jan 2020. 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 History of Any Multi-Drug Resistant Organisms: C-DIFF Date of last positivie culture/infection: 2020 MDRO Source:: stool Past Surgical History: Appendectomy, Breast Surgery, Hysterectomy, Orthopedic Surgery Additional Past Surgical History / Comment(s): DONATED LEFT KIDNEY. breast reduction, abdominoplasty, right rotator cuff repair, right hand thumb arthroplasty, cataracts , Rt breast biopsy, RIGHT BREAST LUMPECTOMY ., PORT A CATH LT CHEST, left thumb and left ring finger arthroplasty, revison carpal tunnel left wrist. Past Anesthesia/Blood Transfusion Reactions: Motion Sickness, Postoperative Nausea & Vomiting (PONV) Past Psychological History: No Psychological Hx Reported Smoking Status: Former smoker Past Alcohol Use History: Occasional Past Drug Use History: None Reported - Past Family History Mother Family Medical History: Cancer Additional Family Medical History / Comment(s): Non Hodgkins Lymphoma General Exam Limitations: no limitations General appearance: alert, in no apparent distress Head exam: Present: atraumatic, normocephalic Eye exam: Present: normal appearance. Absent: scleral icterus, conjunctival injection Respiratory exam: Present: normal lung sounds bilaterally. Absent: respiratory distress, wheezes, rales, rhonchi, stridor Cardiovascular Exam: Present: regular rate, normal rhythm, normal heart sounds. Absent: systolic murmur, diastolic murmur, rubs, gallop GI/Abdominal exam: Present: soft. Absent: distended, tenderness, guarding, rebound, rigid, mass Back exam: Absent: CVA tenderness (R), CVA tenderness (L) Neurological exam: Present: alert Skin exam: Present: warm, dry, intact, normal color. Absent: rash Course Vital Signs 12/11/21 12/12/21 23:11 01:51 Temperature 98.0 F Pulse Rate 82 94 Respiratory 20 18 Rate Blood Pressure 146/66 144/79 O2 Sat by Pulse 95 100 Oximetry Medical Decision Making - Lab Data Result diagrams: 12/11/21 23:44 12/11/21 23:44 Lab Results 12/11/21 12/11/21 Range/Units 23:44 23:44 WBC 8.1 (3.8-10.6) k/uL RBC 3.91 (3.80-5.40) m/uL Hgb 12.6 (11.4-16.0) gm/dL Hct 36.9 (34.0-46.0) % MCV 94.3 (80.0-100.0) fL MCH 32.1 (25.0-35.0) pg MCHC 34.0 (31.0-37.0) g/dL RDW 12.7 (11.5-15.5) % Plt Count 237 (150-450) k/uL MPV 7.5 Neutrophils % 71 % Lymphocytes % 18 % Monocytes % 6 % Eosinophils % 2 % Basophils % 0 % Neutrophils # 5.8 (1.3-7.7) k/uL Lymphocytes # 1.5 (1.0-4.8) k/uL Monocytes # 0.5 (0-1.0) k/uL Eosinophils # 0.2 (0-0.7) k/uL Basophils # 0.0 (0-0.2) k/uL Sodium 141 (137-145) mmol/L Potassium 4.5 (3.5-5.1) mmol/L Chloride 107 (98-107) mmol/L Carbon Dioxide 23 (22-30) mmol/L Anion Gap 11 mmol/L BUN 19 H (7-17) mg/dL Creatinine 0.98 (0.52-1.04) mg/dL Est GFR (CKD-EPI)AfAm 65 (>60 ml/min/1.73 sqM) Est GFR (CKD-EPI)NonAf 57 (>60 ml/min/1.73 sqM) Glucose 111 H (74-99) mg/dL Calcium 9.2 (8.4-10.2) mg/dL Total Bilirubin 0.2 (0.2-1.3) mg/dL AST 27 (14-36) U/L ALT 21 (4-34) U/L Alkaline Phosphatase 111 (38-126) U/L Total Protein 6.3 (6.3-8.2) g/dL Albumin 4.1 (3.5-5.0) g/dL Disposition Clinical Impression: No problem, feared complaint unfounded Disposition: HOME SELF-CARE Condition: Good Instructions (If sedation given, give patient instructions): Hyperkalemia (ED) Is patient prescribed a controlled substance at d/c from ED?: No Referrals: [facility] [Primary Care Provider] - 1-2 days
[2021-12-12 01:52] VITALS: BP 144/79; PULSE 94; RESP 18
== END 2021-12-12 01:52 | disposition home or self-care (01) ==
LOC: EC 22:29
DX: Z71.1 Person with feared health complaint in whom no diagnosis is made (principal); I82.409 Acute embolism and thrombosis of unspecified deep veins of unspecified lower extremity; K21.9 Gastro-esophageal reflux disease without esophagitis; E78.5 Hyperlipidemia, unspecified; I10 Essential (primary) hypertension; M19.90 Unspecified osteoarthritis, unspecified site; E03.9 Hypothyroidism, unspecified; I26.99 Other pulmonary embolism without acute cor pulmonale; Z87.891 Personal history of nicotine dependence; Z79.890 Hormone replacement therapy; Z79.51 Long term (current) use of inhaled steroids; Z79.83 Long term (current) use of bisphosphonates; Z88.1 Allergy status to other antibiotic agents; Z88.5 Allergy status to narcotic agent; Z88.6 Allergy status to analgesic agent; Z88.8 Allergy status to other drugs, medicaments and biological substances; Z91.018 Allergy to other foods; Z91.09 Other allergy status, other than to drugs and biological substances
CPT/HCPCS: 99283; 96374; 36415; 80053; 85025; J1642

== ENCOUNTER → 2022-03-22 | Outpatient (CLI) | payer MEDICARE, OTHER ==
[2022-03-22 14:49] LABS: ALT 18 U/L (8-44); AST 21 U/L (13-35); African American GFR (CKD) 52.3 (60.0-200.0); Albumin 4.3 g/dL (3.8-4.9); Albumin/Globulin Ratio 1.62 (1.60-3.17); Alkaline Phosphatase 105 U/L (41-126); Blood Urea Nitrogen 22.3 mg/dL (9.0-27.0); Calcium 9.6 mg/dL (8.7-10.3); Carbon Dioxide 27.8 mmol/L (20.0-27.5); Chloride 106 mmol/L (96-109); Chol/HDL Ratio 1.88 Ratio; Globulin 2.6 g/dL (1.6-3.3); Glucose 106 mg/dL (70-110); LDL Cholesterol,Calculated 29.8 mg/dL (0.0-131.0); Non-African American GFR(CKD) 45.1 (60.0-200.0); Potassium 5.3 mmol/L (3.5-5.5); Sodium 143 mmol/L (135-145); Total Bilirubin <0.15 mg/dL (0.30-1.20); Total Protein 6.9 g/dL (6.2-8.2)
== END | disposition home or self-care (01) ==
LOC: LABWHC1 09:00
PROVIDERS: ATTEND Nurse Practitioner Adult Health
DX: I10 Essential (primary) hypertension (principal); E78.2 Mixed hyperlipidemia
CPT/HCPCS: 36415; 80053; 80061

== ENCOUNTER → 2022-06-09 | Outpatient (CLI) | payer MEDICARE, OTHER ==
--- NOTE | 2022-06-09 15:33 | MM ---
Reason for Exam: Additional evaluation requested from prior study. Last screening mammogram was performed 12 month(s) ago. Indicated Problems: Pain of both sides (Focal) for 1 Month(s). Patient History: Menarche at age 11. First Full-Term at age 24. Left ovary removed at age 51. Right ovary removed at age 51. Hysterectomy at age 51. Postmenopausal. Patient has history of breast feeding. Breast cancer, right, age 74. Previous chest radiation therapy. Previous chemotherapy. Estrogen for 7 years until age 73. 2014, Bilateral Reduction. 10/13/2020, Lumpectomy on the Right side. 10/13/2020, Malignant Core Biopsy on the right side. 02/18/2020, Malignant Core Biopsy on the right side. 02/2020, Chemotherapy. 11/2020, Radiation Therapy. Maternal aunt had breast cancer. Prior Study Comparison: 03/26/2016 Bilateral Diagnostic Mammogram, [facility]. 03/26/2016 Right Diagnostic Ultrasound, [facility]. 11/11/2017 Bilateral Screening Mammogram, [facility]. 12/29/2018 Bilateral Screening Mammogram, [facility]. 02/12/2020 Bilateral Screening Mammogram, [facility]. 02/15/2020 Right Diagnostic Mammogram, [facility]. 02/15/2020 Right Diagnostic Ultrasound, [facility]. 02/18/2020 Right Diagnostic Mammogram, [facility]. 02/03/2021 Left Diagnostic Mammogram, [facility]. 06/08/2021 Bilateral Diagnostic Mammogram, [facility]. Tissue Density: There are scattered fibroglandular densities. Findings: Analyzed By CAD. Benign-appearing calcifications within both breasts. No new suspicious calcifications or masses within either breast. Stable post lumpectomy changes of the right breast. Overall Assessment: Incomplete: need additional imaging evaluation, BI-RAD 0 Management: Diagnostic Breast Ultrasound of both breasts. A clinical breast exam by your physician is recommended on an annual basis and results should be correlated with mammographic findings. This exam should not preclude additional follow-up of suspicious palpable abnormalities. Results were given to the patient verbally at the time of exam. Electronically signed and approved by: Jose Eduardo Kennedy D.O.
--- NOTE | 2022-06-09 15:36 | USB ---
Reason for Exam: Clinical finding. Patient History: Menarche at age 11. First Full-Term at age 24. Left ovary removed at age 51. Right ovary removed at age 51. Hysterectomy at age 51. Postmenopausal. Patient has history of breast feeding. Breast cancer, right, age 74. Previous chest radiation therapy. Previous chemotherapy. Estrogen for 7 years until age 73. 2015, Bilateral Reduction. 10/13/2020, Lumpectomy on the Right side. 10/13/2020, Malignant Core Biopsy on the right side. 02/18/2020, Malignant Core Biopsy on the right side. 02/2020, Chemotherapy. 11/2020, Radiation Therapy. Maternal aunt had breast cancer. Technique: Method: Targeted. Prior Study Comparison: 02/18/2020 Right Diagnostic Mammogram, [facility]. 02/03/2021 Left Diagnostic Mammogram, [facility]. 06/08/2021 Bilateral Diagnostic Mammogram, [facility]. Findings: The lateral section of the breast of both breasts, the axilla of both breasts and the retroareolar of both breasts were scanned. Targeted ultrasound the right breast was performed at 9:00 with additional evaluation the nipple and axilla. Benign-appearing lymph node within the right breast at 9:00 12 cm from the nipple measuring 0.5 x 0.4 x 0.5 cm. No suspicious mass or cyst identified. No suspicious lymphadenopathy. Targeted ultrasound of the left breast at 2:00 with additional evaluation of the nipple and axilla. Coarse calcification corresponding to mammogram within the left breast at 2:00 for surgery the nipple measuring up to 0.6 cm. No suspicious solid or cystic mass. No suspicious lymphadenopathy. Overall Assessment: Benign, BI-RAD 2 Management: Screening Mammogram of both breasts in 1 year. A clinical breast exam by your physician is recommended on an annual basis and results should be correlated with mammographic findings. This exam should not preclude additional follow-up of suspicious palpable abnormalities. Results were given to the patient verbally at the time of exam. Electronically signed and approved by: Jose Eduardo Kennedy D.O.
== END | disposition home or self-care (01) ==
LOC: RADMAMWWP 10:53
PROVIDERS: ATTEND Surgery
DX: R92.8 Other abnormal and inconclusive findings on diagnostic imaging of breast (principal); Z78.0 Asymptomatic menopausal state; Z80.3 Family history of malignant neoplasm of breast; Z92.3 Personal history of irradiation
CPT/HCPCS: 77066; 76642; G0279; 77062

== ENCOUNTER → 2022-06-17 | Outpatient (CLI) | payer MEDICARE, OTHER ==
--- NOTE | 2022-06-17 17:25 | P.PN ---
Subjective DATE: 06/17/2022 FOLLOW UP VISIT. Patient with obstructive sleep apnea hypopnea syndrome return to sleep center for follow-up visit. Information from previous visit have been reviewed. Patient is using PAP equipment every night for the whole night, getting PAP supplies in time. The patient does not have significant problems with PAP unit and humidification. Patient feels some discomfort with sure mask because it makes some problems with her hair. Homer sleepiness scale is 8, which is normal. I checked information from PAP unit. PAP unit pressure 5-18, average 12.5 cm H2O. Leak is 7.2 l/m, which is in acceptable range. Apnea Hypopnea Index is 5.7, which is borderline. MEDICATIONS:1. Levothyroxine 2. Metoprolol 25 mg once a day 3. Losartan 25 mg once a day 4. Amlodipine 5 mg once a day 5. AcipHex 20 mg once a day 6. Gabapentin 300 mg 3 times a day 7. Naproxen 240 mg up to 2 times a day During physical exam: GENERAL: A pleasant patient without any distress. VITAL SIGNS: BP 125/63, HR 64, RR 12, weight 176, temperature 98.2, oxygen saturation at room air 93 % . HEENT: PERRLA, EOMI.low position of soft palate, Mallapati 3. NECK: Supple. No JVD. LUNGS: Clear to percussion and to auscultation. Good air exchange. No wheezing or rhonchi. HEART: S1, S2 regular. ABDOMEN: Soft and nontender. Slightly obese EXTREMITIES: No clubbing or cyanosis. MASSAGE THERAPIST: Awake, alert, and oriented x3. No focal deficit. Impressions: 1. Obstructive sleep apnea-hypopnea syndrome. Patient demonstrated borderline compliance with treatment, benefiting from treatment. Patient feels discomfort with sure present mask. 2. Hypertension. 3. History of right breast CA, status post lumpectomy, radiation therapy and chemotherapy. 4. Hypothyroidism. 5. Status post total hysterectomy. 6. Status post left nephrectomy for kidney donation. 7. Status post right-sided rotator cuff surgery. 8. History of neck pain. 9. History of low back problems. Plan: 1. Continue using PAP equipment every night for the whole night. Prescription for Cruz effect Sunita nasal pillow mask. 2. To change air filter at least 1-2 times per month. 3. PAP unit should stay lower then position of the head. 4. Advised patient to remove all remaining water from humidifier canister daily and make it dry after each usage. Refill canister with fresh distilled water before each usage. 5. Sleep hygiene with regular time in bed for at least 8 hours. 6. Precautions related to driving. No driving if feel any sleepiness. 7. I will maintain prescription for PAP supplies including mask, tube, filters. 8. Watching weight. 9. Follow up visit in 6 months or earlier if patient has any problems. Thank you very much for allowing me to participate in the management of your patient. Wan Almaguer MD, PhD, FAASM. Diplomat of [place] [employer], Sleep Medicine Board by [place] [employer] [facility] Pull[facility] [place]
== END ==
LOC: SLEEP 16:35
PROVIDERS: ATTEND Internal Medicine
DX: G47.33 Obstructive sleep apnea (adult) (pediatric) (principal); I10 Essential (primary) hypertension; E03.9 Hypothyroidism, unspecified; Z79.1 Long term (current) use of non-steroidal anti-inflammatories (NSAID); Z79.899 Other long term (current) drug therapy; Z85.3 Personal history of malignant neoplasm of breast; Z90.5 Acquired absence of kidney; Z90.710 Acquired absence of both cervix and uterus; Z92.3 Personal history of irradiation; Z98.890 Other specified postprocedural states; Z99.89 Dependence on other enabling machines and devices; Z79.890 Hormone replacement therapy; Z88.1 Allergy status to other antibiotic agents; Z88.5 Allergy status to narcotic agent; Z91.018 Allergy to other foods; Z88.8 Allergy status to other drugs, medicaments and biological substances; Z87.891 Personal history of nicotine dependence
CPT/HCPCS: 99212

== ENCOUNTER → 2022-07-06 | Outpatient (CLI) | payer MEDICARE, OTHER ==
--- NOTE | 2022-07-15 12:19 | MR ---
EXAMINATION TYPE: MR breast BILAT wo/w con DATE OF EXAM: 07/06/2022 COMPARISON: 3-D diagnostic bilateral breast mammogram June 09, 2022 BI-RADS 0. Ultrasound diagnostic bilateral breast limited June 09, 2022 BI-RADS 2. HISTORY: Rt Breast CA, Hx Rt Breast reduction 2014, Rt breast positive biopsy 2019, Rt breast lumpectomy 2020, Pt has a painful hard mass Rt outer breast (Marked by bead) TECHNIQUE: A series of fat and water weighted images in the long and short axis views of both breasts are obtained in conjunction with dynamic contrast MRI with subtraction technique. The patient was injected with 8 mL intravenous Gadavist gadolinium contrast. Three-dimensional and additional postprocessing imaging is created on independent workstation and reviewed during official interpretation of this study. FINDINGS: Scattered fibroglandular tissue is redemonstrated bilaterally. There is diminished size to the right breast with some skin thickening and trabeculation consistent with posttreatment change redemonstrated. No suspicious axillary adenopathy identified bilaterally. There is artifact from Mediport catheter in the upper medial aspect of the left breast. Postcontrast imaging shows mild background enhancement. With regards to the left breast, there is no pathologic enhancement or enhancing masses. No abnormal skin thickening is seen. The chest wall appears intact. Right breast shows distortion and susceptibility artifact from surgical clips in the outer aspect. No suspicious enhancing masses are seen. The chest wall appears intact. BB corresponds to palpable abnormality axial image 137 series 401 at site of scarring and treatment change IMPRESSION: Posttreatment changes to the right breast identified. No enhancing masses are present. Manage palpable clinically though appears to correspond to treatment change BI-RADS 2 benign findings right breast BI-RADS 1 negative findings left breast Recommendation: Manage palpable clinically. Patient due for diagnostic bilateral breast mammogram May 2023. [facility]
== END | disposition home or self-care (01) ==
LOC: RADMRIMAIN 14:03
PROVIDERS: ATTEND Surgery
DX: C50.811 Malignant neoplasm of overlapping sites of right female breast (principal)
CPT/HCPCS: C8908; J1642; A9585; 77049

== ENCOUNTER → 2022-11-09 | Outpatient (CLI) | payer MEDICARE, OTHER ==
[2022-11-09 21:16] LABS: BUN/Creat Ratio 17.93 Ratio (12.00-20.00); Blood Urea Nitrogen 25.1 mg/dL (9.0-27.0); Calcium 10.3 mg/dL (8.7-10.3); Carbon Dioxide 27.1 mmol/L (21.6-31.8); Chloride 104 mmol/L (96-109); Glucose 89 mg/dL (70-110); Phosphorus 3.6 mg/dL (2.4-5.1); Potassium 5.2 mmol/L (3.5-5.5); Sodium 141 mmol/L (135-145)
== END | disposition home or self-care (01) ==
LOC: LABWHC1 13:40
PROVIDERS: ATTEND Family Medicine
DX: E83.42 Hypomagnesemia (principal)
CPT/HCPCS: 36415; 80048; 82088; 84100

== ENCOUNTER → 2022-12-17 | Outpatient (CLI) | payer MEDICARE, OTHER ==
--- NOTE | 2022-12-17 12:21 | US ---
EXAMINATION TYPE: US arterial LE single level DATE OF EXAM: 12/17/2022 10:33 AM CLINICAL INDICATION: Female, 77 years old with history of R09.89 OTH SYMPTOMS AND SIGNS INVOLVING THE CIRC A; Pt states achy legs History of: Smoker: Prior, quit x 20 yrs Hypertension: Yes Diabetic: No Hyperlipidemia: Yes TIA/CVA: No Previous Vascular Surgery: No CAD: No CT: No Vascular Ulcers: No Doppler Waveforms: Right: Multiphasic Left: Multiphasic Right Brachial Pressure: 130 Left Brachial Pressure: 127 Ankle-Brachial Indices: Right: 1.3 Left: 1.2 IMPRESSION: Normal bilateral CAMI
== END | disposition home or self-care (01) ==
LOC: RADUSWWP 10:10
PROVIDERS: ATTEND Family Medicine
DX: R09.89 Other specified symptoms and signs involving the circulatory and respiratory systems (principal)
CPT/HCPCS: 93922

== ENCOUNTER → 2022-12-30 | Outpatient (CLI) | payer MEDICARE, OTHER ==
--- NOTE | 2022-12-30 17:01 | P.PN ---
Subjective DATE: 12/30/2022 FOLLOW UP VISIT. Patient with obstructive sleep apnea hypopnea syndrome return to sleep center for follow-up visit. Information from previous visit have been reviewed. Patient is using PAP equipment every night for the whole night, getting PAP supplies in time. The patient does not have significant problems with the mask, PAP unit and humidification. [place] sleepiness scale is 8, which is normal. I checked information from PAP unit and explaining to the patient in details. PAP unit pressure 5-18, average 12.6 cm H2O. Usage is about 50 % for more then 4 hours, average 4 hours per night. Leak is 5.1 l/m, which is in acceptable range. Apnea Hypopnea Index is 3.9, which is normal. MEDICATIONS:1. Levothyroxine 2. Amlodipine 5 mg once a day 3. Losartan 25 mg once a day 4. Metoprolol 25 mg once a day 5. Gabapentin 300 mg 3 times a day During physical exam: GENERAL: A pleasant patient without any distress. VITAL SIGNS: BP 127/72, HR 66, RR 16 , weight 160.0 patient lost 16 pounds since previous visit, temperature 97.6, oxygen saturation at room air 95 % . HEENT: PERRLA, EOMI.low position of soft palate, Mallapati 3 . NECK: Supple. No JVD. LUNGS: Clear to percussion and to auscultation. Good air exchange. No wheezing or rhonchi. HEART: S1, S2 regular. ABDOMEN: Soft and nontender.[] EXTREMITIES: No clubbing or cyanosis. BIOINFORMATICS TECHNICIAN: Awake, alert, and oriented x3. No focal deficit. Impressions: 1. Obstructive sleep apnea-hypopnea syndrome. Patient demonstrated borderline compliance with treatment, benefiting from treatment. 2. History of right breast cancer, status post lumpectomy, radiation therapy and hemotherapy. 3. Hypertension. 4. Hypothyroidism. 5. Status post total hysterectomy. 6. Status post left nephrectomy for kidney donation. 7. Status post a right side surgery for rotator cuff problems. 8. History of low back problems. 9. History of neck pain. Plan: 1. Continue using PAP equipment every night for the whole night. 2. To change air filter at least 1-2 times per month. 3. PAP unit should stay lower then position of the head. 4. Advised patient to remove all remaining water from humidifier canister daily and make it dry after each usage. Refill canister with fresh distilled water before each usage. 5. Sleep hygiene with regular time in bed for at least 8 hours. 6. Precautions related to driving. No driving if feel any sleepiness. 7. I will maintain prescription for PAP supplies including mask, tube, filters. 8. Follow up visit in 6 months or earlier if patient has any problems. 9. Watching weight. Thank you very much for allowing me to participate in the management of your patient. Wan Almaguer MD, PhD, FAASM. Diplomat of [place] [employer], Sleep Medicine Board by [place] [employer] Biometrics Analyst of [facility] [place]
== END ==
LOC: 3 N SLEEP 15:28
PROVIDERS: ATTEND Internal Medicine
DX: G47.33 Obstructive sleep apnea (adult) (pediatric) (principal); I10 Essential (primary) hypertension; E03.9 Hypothyroidism, unspecified; M54.2 Cervicalgia; M54.50 Low back pain, unspecified; Z85.3 Personal history of malignant neoplasm of breast; Z90.5 Acquired absence of kidney; Z90.710 Acquired absence of both cervix and uterus; Z79.899 Other long term (current) drug therapy; Z98.890 Other specified postprocedural states; Z99.89 Dependence on other enabling machines and devices; Z88.1 Allergy status to other antibiotic agents; Z88.5 Allergy status to narcotic agent; Z88.8 Allergy status to other drugs, medicaments and biological substances; Z91.018 Allergy to other foods; Z91.048 Other nonmedicinal substance allergy status; Z88.2 Allergy status to sulfonamides; Z87.891 Personal history of nicotine dependence
CPT/HCPCS: 99212

== ENCOUNTER → 2023-02-02 | Outpatient (CLI) | payer MEDICARE, OTHER ==
[2023-02-03 09:35] LABS: Total Volume 24 Hour,Urine 1625 mL
[2023-02-03 09:50] LABS: Total Protein 24 Hour,Urine 113.8 mg/24Hr (0.0-165.0)
== END | disposition home or self-care (01) ==
LOC: LABPRL 12:40
PROVIDERS: ATTEND Family Medicine
DX: E83.42 Hypomagnesemia (principal); N18.9 Chronic kidney disease, unspecified
CPT/HCPCS: 81050; 84156

== ENCOUNTER → 2023-02-10 | Outpatient (CLI) | payer MEDICARE, OTHER ==
--- NOTE | 2023-02-10 09:51 | MM ---
Reason for Exam: Clinical finding. Last screening mammogram was performed 8 month(s) ago. Patient History: Menarche at age 11. First Full-Term at age 24. Left ovary removed at age 51. Right ovary removed at age 51. Hysterectomy at age 51. Postmenopausal. Patient has history of breast feeding. Breast cancer, right, age 74. Previous chest radiation therapy. Previous chemotherapy. Estrogen for 7 years until age 73. 2015, Bilateral Reduction. 10/13/2020, Lumpectomy on the Right side. 10/13/2020, Malignant Core Biopsy on the right side. 02/18/2020, Malignant Core Biopsy on the right side. 02/2020, Chemotherapy. 11/2020, Radiation Therapy. Maternal aunt had breast cancer. Prior Study Comparison: 02/03/2021 Left Diagnostic Mammogram, [facility]. 06/08/2021 Bilateral Diagnostic Mammogram, [facility]. 06/09/2022 Bilateral MG 3D diag mammo w/cad ANIKA, [facility]. Tissue Density: Left: The breast tissue is almost entirely fat. Findings: Analyzed By CAD. Scattered benign calcifications are stable. No evidence for mass or distortion. Overall Assessment: Incomplete: need additional imaging evaluation, BI-RAD 0 Management: Diagnostic Breast Ultrasound of the left breast. . Results were given to the patient verbally at the time of exam. Patient should continue monthly self-breast exams. A clinical breast exam by your physician is recommended on an annual basis. This exam should not preclude additional follow-up of suspicious palpable abnormalities. Note on Lindsey scores and lifetime risk: 1. A Lindsey score greater than 3% is considered moderate risk. If this is the case, consider specialist referral to assess eligibility for a risk reducing agent. 2. If overall lifetime risk for the development of breast cancer is 20% or higher, the patient may qualify for future screening with alternating mammogram and breast MRI. Electronically signed and approved by: Rishabh Alcala M.D. Radiologis
--- NOTE | 2023-02-10 10:22 | USB ---
Reason for Exam: Clinical finding. Patient History: Menarche at age 11. First Full-Term at age 24. Left ovary removed at age 51. Right ovary removed at age 51. Hysterectomy at age 51. Postmenopausal. Patient has history of breast feeding. Breast cancer, right, age 74. Previous chest radiation therapy. Previous chemotherapy. Estrogen for 7 years until age 73. 2015, Bilateral Reduction. 10/13/2020, Lumpectomy on the Right side. 10/13/2020, Malignant Core Biopsy on the right side. 02/18/2020, Malignant Core Biopsy on the right side. 02/2020, Chemotherapy. 11/2020, Radiation Therapy. Maternal aunt had breast cancer. Technique: Method: Whole Breast Handheld. Prior Study Comparison: 02/03/2021 Left Diagnostic Mammogram, [facility]. 06/08/2021 Bilateral Diagnostic Mammogram, [facility]. 06/09/2022 Bilateral MG 3D diag mammo w/cad ANIKA, [facility]. Findings: The whole breast of the left breast, the axilla of the left breast and the retroareolar of the left breast were scanned. There is decreased echogenicity with shadowing likely reflect large calculi seen on mammography. Precautionary six-month follow-up is recommended. Overall Assessment: Probably benign, BI-RAD 3 Management: Diagnostic Breast Ultrasound of the left breast in 6 months. A clinical breast exam by your physician is recommended on an annual basis and results should be correlated with mammographic findings. This exam should not preclude additional follow-up of suspicious palpable abnormalities. Results were given to the patient verbally at the time of exam. Electronically signed and approved by: Rishabh Alcala M.D. Radiologis
== END | disposition home or self-care (01) ==
LOC: RADMAMWWP 09:25
PROVIDERS: ATTEND Family Medicine
DX: R92.312 Mammographic fatty tissue density, left breast (principal); N64.4 Mastodynia; Z78.0 Asymptomatic menopausal state; Z80.3 Family history of malignant neoplasm of breast; Z85.3 Personal history of malignant neoplasm of breast
CPT/HCPCS: 77061; 77065

== ENCOUNTER → 2023-03-11 | Outpatient (CLI) | payer MEDICARE, OTHER ==
--- NOTE | 2023-03-12 22:37 | US ---
EXAMINATION TYPE: US kidneys/renal and bladder DATE OF EXAM: 03/11/2023 COMPARISON: NONE CLINICAL INDICATION: Female, 77 years old with history of N18.32 CHRONIC KIDNEY DISEASE, STAGE 3B; CK D. No other pain or symptoms. 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 EXAM MEASUREMENTS: Right Kidney: 9.3 x 5.9 x 5.5 cm Left Kidney: Surgically absent Right Kidney: There is a 2.3 x 2.6 x 2.5cm simple parapelvic cyst Left Kidney: Surgically absent Bladder: wnl Bilateral Jets seen: Rt only IMPRESSION: 1. Right renal peripelvic cyst
== END | disposition home or self-care (01) ==
LOC: RADUSWWP 12:07
PROVIDERS: ATTEND Internal Medicine Nephrology
DX: N28.1 Cyst of kidney, acquired (principal); N18.32 Chronic kidney disease, stage 3b; Z90.5 Acquired absence of kidney
CPT/HCPCS: 76770

== ENCOUNTER → 2023-03-11 | Outpatient (CLI) | payer MEDICARE, OTHER ==
[2023-03-11 11:48] LABS: ALT 36 U/L (8-44); AST 27 U/L (13-35); Chol/HDL Ratio 2.09 Ratio; LDL Cholesterol,Calculated 70.5 mg/dL (0.0-131.0)
== END | disposition home or self-care (01) ==
LOC: LABWHC1 07:05
PROVIDERS: ATTEND Internal Medicine Interventional Cardiology
DX: E78.2 Mixed hyperlipidemia (principal)
CPT/HCPCS: 36415; 80061; 84450; 84460

== ENCOUNTER 2023-03-13 00:46 | Inpatient (IN) | payer MEDICARE, OTHER ==
[2023-03-13 01:19] LABS: Basophils # (A) 0.1 k/uL (0-0.2); Basophils % (A) 0 %; Eosinophils # (A) 0.1 k/uL (0-0.7); Eosinophils % (A) 1 %; HCT 42.6 % (34.0-46.0); HGB 14.5 gm/dL (11.4-16.0); Lymphocytes # (A) 1.1 k/uL (1.0-4.8); Lymphocytes % (A) 10 %; MCH 32.2 pg (25.0-35.0); MCHC 34.1 g/dL (31.0-37.0); MCV 94.5 fL (80.0-100.0); Mean Platelet Volume 7.1; Monocytes # (A) 0.5 k/uL (0-1.0); Monocytes % (A) 4 %; Neutrophils # (A) 9.6 k/uL (1.3-7.7); Neutrophils % (A) 83 %; Platelet Count 219 k/uL (150-450); RBC 4.51 m/uL (3.80-5.40); WBC 11.6 k/uL (3.8-10.6)
[2023-03-13 01:30] LABS: INR 0.9 (<1.2); Partial Thromboplastin Time 22.3 sec (22.0-30.0); Prothrombin Time 9.8 sec (10.0-12.5)
[2023-03-13 01:31] LABS: ALT 33 U/L (4-34); AST 31 U/L (14-36); African American GFR (CKD) 56 (>60 ml/min/1.73 sqM); Albumin 4.4 g/dL (3.5-5.0); Alkaline Phosphatase 97 U/L (38-126); Amylase 66 U/L (30-110); Anion Gap 10 mmol/L; Blood Urea Nitrogen 24 mg/dL (7-17); Calcium 9.7 mg/dL (8.4-10.2); Carbon Dioxide 29 mmol/L (22-30); Chloride 100 mmol/L (98-107); Glucose 126 mg/dL (74-99); Lipase 224 U/L (23-300); Non-African American GFR(CKD) 49 (>60 ml/min/1.73 sqM); Potassium 4.4 mmol/L (3.5-5.1); Sodium 139 mmol/L (137-145); Total Bilirubin 0.5 mg/dL (0.2-1.3); Total Protein 6.9 g/dL (6.3-8.2)
[2023-03-13 01:34] LABS: Amorphous Sediment,Urine Rare /hpf; Appearance,Urine Clear (Clear); Bacteria,Urine Few /hpf; Bilirubin,Urine Negative (Negative); Blood,Urine Negative (Negative); Color,Urine Yellow; Glucose,Urine (UA) Negative (Negative); Hyaline Casts,Urine 13 /lpf (0-2); Ketones,Urine Negative (Negative); Leukocyte Esterase,Urine Small (Negative); Mucus,Urine Rare /hpf; Nitrite,Urine Negative (Negative); PH, Urine 6.5 (5.0-8.0); Protein,Urine Trace (Negative); RBC,Urine 2 /hpf (0-5); Specific Gravity,Urine 1.027 (1.001-1.035); Squamous Epithelial Cell,Urine 11 /hpf (0-4); Urobilinogen,Urine <2.0 mg/dL (<2.0); WBC,Urine 12 /hpf (0-5)
--- NOTE | 2023-03-13 02:04 | XR ---
EXAMINATION TYPE: XR chest 2V DATE OF EXAM: 03/13/2023 COMPARISON: Chest x-ray September 24, 2021 HISTORY: Abdominal pain since last night, general spasms and vomiting TECHNIQUE: Frontal and lateral views of the chest are obtained. FINDINGS: Stable left internal jugular Mediport catheter. There is new lateral left basilar linear s carring and/or atelectasis. Some right-sided parenchymal scarring redemonstrated. The cardiac silhoue tte size is within normal limits. The osseous structures are intact. Surgical clips at epigastric r egion are noted. Surgical clips overlie the right breast on current study. IMPRESSION: Chronic changes with new lateral left basilar linear scarring and/or atelectasis.
--- NOTE | 2023-03-13 02:05 | XR ---
EXAMINATION TYPE: XR KUB DATE OF EXAM: 03/13/2023 1:51 AM CLINICAL HISTORY: Abdominal pain since last night with vomiting TECHNIQUE: Two Upright KUB images of the abdomen are obtained. COMPARISON: CT September 24, 2021. FINDINGS: Scattered gas is seen in non-distended small bowel loops. Gas and fecal material is seen in non-distended colon. Surgical clips redemonstrated overlying the central left abdomen. There is left basilar opacity. Osseous structures are intact. No free air. IMPRESSION: Overall nonobstructive bowel gas pattern.
[2023-03-13] MEDS ORDERED: ONDANSETRON 4 MG/2 ML VIAL IVP STA (02:16)
[2023-03-13] MEDS ORDERED: PANTOPRAZOLE 40 MG/10 ML VIAL IVP STA (02:16)
[2023-03-13] MEDS ORDERED: MAG HYDROX/AL HYDROX/SIMETH 30 ML, HYOSCYAMINE ELIXIR 10 ML, LIDOCAINE 2% GLYDO JELLY 1... PO STA ×3 (02:16)
[2023-03-13] MEDS ORDERED: SODIUM CHLORIDE 0.9% 1,000 ML IV STA (02:16)
[2023-03-13] MEDS ORDERED: diphenhydrAMINE 50 MG/ML 1 ML VIAL IVP STA (02:30)
--- NOTE | 2023-03-13 03:45 | CT ---
EXAMINATION TYPE: CT abdomen pelvis w con DATE OF EXAM: 03/13/2023 HISTORY: ABD PAIN, VOMITING. h/o rt breast ca,pt has only 1 kidney due to donating other, CKD from re cent US, htn, pe's,, CT DLP: 961.2mGycm Automated Exposure Control for Dose Reduction was Utilized. CONTRAST: CT scan of the abdomen and pelvis is performed with IV Contrast, patient injected with 80 mL of Isovu e 300. COMPARISON: Head CT September 18, 2022. Most recent prior CT September 24, 2021 FINDINGS: LUNG BASES: Posttreatment changes to the right breast is redemonstrated. LIVER/GB: Contracted gallbladder on current study. PANCREAS: No significant abnormality is seen. SPLEEN: No significant abnormality is seen. ADRENALS: No significant abnormality is seen. KIDNEYS: Left kidney is surgically absent. BOWEL: Mildly distended stomach with air-fluid level. Dilated small bowel loops in the midabdomen up to 3.4 cm. Small bowel feces sign left abdomen. Nondistended small bowel loops in the lower abdomen a nd pelvis. Fecal material in nondistended colon. Distal colonic diverticula. No CT evidence for acute diverticulitis. No free air or mesenteric air. Incidental 3.0 cm duodenal diverticulum with air-flui d level axial image 33 is redemonstrated. UTERUS/ADNEXA: Uterus is surgically absent. LYMPH NODES: No greater than 1cm abdominal or pelvic lymph nodes are appreciated. OSSEOUS STRUCTURES: Moderate to severe disc space narrowing at L3-L4 and L5-S1 levels. OTHER: Moderate-sized fat-containing periumbilical hernia. IMPRESSION: CT findings suggest a proximal to mid small bowel obstruction. Advise surgical evaluation .
[2023-03-13] MEDS ORDERED: NALOXONE 0.4 MG/ML 1 ML VIAL IV PRN (03:59)
--- NOTE | 2023-03-13 04:04 | ED ---
General Adult HPI - General Chief complaint: Abdominal Pain Stated complaint: abdominal pain Time Seen by Provider: 03/13/23 01:58 Source: patient, RN notes reviewed, old records reviewed Mode of arrival: ambulatory Limitations: no limitations - History of Present Illness Initial comments: Patient is a 77-year-old female with past medical history remarkable for appendectomy, hypertension, who presents emergency Department when he had sudden onset upper abdominal pain with nausea and vomiting. This occurred approximately 1 hour prior to arrival. Is not occurred previously. States she has had multiple episodes of nonbilious nonbloody emesis. Denies any change in stooling. Denies any urinary complaints. Presents for further evaluation at this time. Pain does not radiate. No history of pancreatitis. Still has her gallbladder. - Related Data Home Medications Medication Instructions Recorded Confirmed Lysine 500 mg PO DAILY 01/21/15 03/02/23 Levothyroxine Sodium [Synthroid] 0.5 tab PO QAM 10/01/15 03/02/23 Metoprolol Succinate (ER) [Toprol 25 mg PO QAM 03/14/20 03/02/23 Xl] Gabapentin 300 mg PO TID 10/09/20 03/02/23 Vitamin B Complex 2 cap PO DAILY 10/09/20 03/02/23 L.acidoph,Paracasei, B.lactis 1 each PO DAILY 05/12/21 03/02/23 [Probiotic] Losartan Potassium [Cozaar] 25 mg PO QAM 05/12/21 03/02/23 Magnesium Chloride [Slow-Mag] 150 mg PO BID 05/12/21 03/02/23 RABEprazole SODIUM [Aciphex] 20 mg PO DAILY 07/20/21 03/02/23 aMILoride HCL 5 mg PO DAILY 07/20/21 03/02/23 Alirocumab [Praluent Pen] 1 injection SQ DIRECTED 07/21/21 03/02/23 Naproxen Sodium [Naproxen Sodium 375 mg PO DAILY 08/21/21 03/02/23 ER] Non Formulary Drug 1 tab PO DAILY 01/25/22 03/02/23 Calm 1 tsp PO DAILY 07/30/22 03/02/23 Previous Rx's Medication Instructions Recorded Lidocaine 5% Patch [Lidoderm 5% 1 patch TOPICAL DAILY PRN 7 Days 09/24/21 Patch] #7 patch Allergies Allergy/AdvReac Type Severity Reaction Status Date / Time cephalexin monohydrate Allergy Rash/Hives Verified 03/13/23 00:50 [From Keflex] hydromorphone HCl Allergy Anaphylaxis, Verified 03/13/23 00:50 [From Dilaudid] DYSPNEA ketorolac tromethamine Allergy Rash/Hives Verified 03/13/23 00:50 [From Toradol] Urkhbky-FTY-BeH Reductase Allergy MUSCLE PAIN Verified 03/13/23 00:50 Inhibitor [Mykfdab-Soa-Dry Reductase Inhibitor] Sulfa (Sulfonamide Allergy Rash/Hives Verified 03/13/23 00:50 Antibiotics) tomato Allergy Rash/Hives Verified 03/13/23 00:50 tree nut Allergy Rash/Hives Verified 03/13/23 00:50 VICRYL SUTURES Allergy Mild abcess at Uncoded 03/13/23 00:50 incision site Review of Systems ROS Statement: Those systems with pertinent positive or pertinent negative responses have been documented in the HPI. Review of Systems: CONST: Denies fever EYES: Denies blurry vision ENT: Denies nasal congestion C/V: Denies Chest pain RESP: Denies shortness of breath GI: Endorses abdominal pain : Denies dysuria SKIN: Denies rash. MSK: Denies joint pain. NEURO: Denies headache ROS Other: All systems not noted in ROS Statement are negative. Past Medical History Past Medical History: Cancer, Deep Vein Thrombosis (DVT), GERD/Reflux, Hyperlipidemia, Hypertension, Osteoarthritis (OA), Pulmonary Embolus (PE), Thyroid Disorder Additional Past Medical History / Comment(s): gluten intolerance, DVT in leg @age of 12, resulted in PE, Rt breast cancer diagnosis- Jan 2020. 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 LEFT PORT. History of Any Multi-Drug Resistant Organisms: C-DIFF Date of last positivie culture/infection: 2020 MDRO Source:: stool Past Surgical History: Appendectomy, Breast Surgery, Hysterectomy, Orthopedic Surgery Additional Past Surgical History / Comment(s): DONATED LEFT KIDNEY. breast reduction, abdominoplasty, right rotator cuff repair, right hand thumb arthroplasty, cataracts , Rt breast biopsy, RIGHT BREAST LUMPECTOMY ., PORT A CATH LT CHEST, left thumb and left ring finger arthroplasty, revison carpal tunnel left wrist. Past Anesthesia/Blood Transfusion Reactions: Motion Sickness, Postoperative Nausea & Vomiting (PONV) Past Psychological History: No Psychological Hx Reported Smoking Status: Never smoker Past Alcohol Use History: None Reported Past Drug Use History: None Reported - Past Family History Mother Family Medical History: Cancer Additional Family Medical History / Comment(s): Non Hodgkins Lymphoma General Exam - General Exam Comments Initial Comments: General: Appears in mild distress. HEAD: Normal with no signs of head trauma. EYES: PERRLA, EOMI, conjunctiva normal, no discharge. ENT: Hearing grossly intact, normal oropharynx. RESPIRATORY: Clear breath sounds bilaterally. No wheezes, rales, or rhonchi. C/V: Regular rate and rhythm. S1 and S2 auscultated, no edema, peripheral pulses 2+ and intact throughout ABD: Abdomen is soft, nondistended. Tender to palpation epigastric and periumbilical region primarily. EXT: Normal range of motion, no obvious deformity SKIN: No rashes or lesions observed on exposed skin. NEURO: Alert and oriented x 4. Cranial nerves II-XII intact. No focal sensory or strength deficits. Limitations: no limitations Course Vital Signs 03/13/23 00:48 Temperature 97.8 F Pulse Rate 78 Respiratory 18 Rate Blood Pressure 139/78 O2 Sat by Pulse 96 Oximetry Medical Decision Making - Medical Decision Making Was pt. sent in by a medical professional or institution (, PA, PLY SPLICER, urgent care, hospital, or fci...) When possible be specific @ -No Did you speak to anyone other than the patient for history (EMS, parent, family, police, friend...)? What history was obtained from this source @ -No Did you review nursing and triage notes (agree or disagree)? Why? @ -I reviewed and agree with nursing and triage notes Were old charts reviewed (outside hosp., previous admission, EMS record, old EKG, old radiological studies, urgent care reports/EKG's, fci records)? Report findings @ -No old charts were reviewed Differential Diagnosis (chest pain, altered mental status, abdominal pain women, abdominal pain men, vaginal bleeding, weakness, fever, dyspnea, syncope, headache, dizziness, GI bleed, back pain, seizure, CVA, palpatations, mental health, musculoskeletal)? @ -Differential Abdominal Pain Women: Appendicitis, Cholecystitis, diverticulosis, ischemic bowel, pancreatitis, hepatitis, UTI, gastroenteritis, AAA, incarcerated hernia, bowel obstruction, co nstipation, inflammatory bowel, hepatitis, peptic ulcer disease, splenic infarction, perforated viscus, vulvitis, ovarian torsion, PID, kidney stone, placenta abruption, this is not meant to be an all-inclusive list EKG interpreted by me (3pts min.). @ -As above X-rays interpreted by me (1pt min.). @ -Chest x-ray and KUB were x-ray revealed no obvious acute process. CT interpreted by me (1pt min.). @ -CT abdomen and pelvis reveals findings concerning for proximal to mid small bowel obstruction U/S interpreted by me (1pt. min.). @ -None done What testing was considered but not performed or refused? (CT, X-rays, U/S, labs)? Why? @ -Discussed providing NG tube over patient declines at this time. What meds were considered but not given or refused? Why? @ -None Did you discuss the management of the patient with other professionals (professionals i.e. , PA, PLY SPLICER, lab, RT, psych nurse, social contact worker, netting inspector, teacher, chief sales officer, case management assistant)? Give summary @ -Discussed with on-call surgeon, Dr. salgado who recommended admission to the surgical team under Dr. Horne and she is congregational care pastor starting tomorrow. He is covering the service just for tonight. He otherwise was in agreement with this plan. I did notify him the patient is refusing NG tube. Was smoking cessation discussed for >3mins.? @ -No Was critical care preformed (if so, how long)? @ -No Were there social determinants of health that impacted care today? How? (Homelessness, low income, unemployed, alcoholism, drug addiction, transportation, low edu. Level, literacy, decrease access to med. care, retirement, rehab)? @ -No Was there de-escalation of care discussed even if they declined (Discuss DNR or withdrawal of care, Hospice)? DNR status @ -No What co-morbidities impacted this encounter? (DM, HTN, Smoking, COPD, CAD, Cancer, CVA, ARF, Chemo, Hep., AIDS, mental health diagnosis, sleep apnea, morbid obesity)? @ -None Was patient admitted / discharged? Hospital course, mention meds given and route, prescriptions, significant lab abnormalities, going to OR and other pertinent info. @ -Basilar patient's presentation and physical exam, concern for either atypical ACS versus possible intra-abdominal process. Patient had workup started and the waiting room. I evaluated her when she was placed in a room. By this time, patient's laboratory studies returned and were remarkable for a very slight leukocytosis of 11.6. Lactic acid within normal limits. Troponin undetectable. 2 EKG shows no signs of acute ischemia. X-rays unremarkable. I did recommend we obtain a CT abdomen and pelvis at this time which she was in agreement with. Patient was sent likely to with IV fluids, Protonix, Zofran, GI cocktail. Patient was in agreement this plan. Vital signs within acceptable limits. CT imaging shows a mid to proximal small bowel obstruction. I discussed results of the patient. I did recommend an NG tube which was declined at this time. She was in agreement with starting IV antibiotics, IV ciprofloxacin as well as Flagyl. I spoke with the on-call surgeon, Dr. Salgado who accepted the admission however he is only covering for today and instructed me to place the admission order under Dr. Laurent who takes over the service in the morning. Undiagnosed new problem with uncertain prognosis? @ -No Drug Therapy requiring intensive monitoring for toxicity (Heparin, Nitro, Insulin, Cardizem)? @ -No Were any procedures done? @ -No Diagnosis/symptom? @ -Small bowel obstruction Acute, or Chronic, or Acute on Chronic? @ -Acute Uncomplicated (without systemic symptoms) or Complicated (systemic symptoms)? @ -Complicated Side effects of treatment? @ -No Exacerbation, Progression, or Severe Exacerbation? @ -No Poses a threat to life or bodily function? How? (Chest pain, [place], CO, pneumonia, PE, COPD, DKA, ARF, appy, cholecystitis, CVA, Diverticulitis, Homicidal, Suicidal, threat to staff... and all critical care pts) @ -Potentially, yes - Lab Data Result diagrams: 03/13/23 00:58 03/13/23 00:57 Lab Results 03/13/23 03/13/2303/13/24 Range/Units 00:57 00:57 00:57 WBC (3.8-10.6) k/uL RBC (3.80-5.40) m/uL Hgb (11.4-16.0) gm/dL Hct (34.0-46.0) % MCV (80.0-100.0) fL MCH (25.0-35.0) pg MCHC (31.0-37.0) g/dL RDW (11.5-15.5) % Plt Count (150-450) k/uL MPV Neutrophils % % Lymphocytes % % Monocytes % % Eosinophils % % Basophils % % Neutrophils # (1.3-7.7) k/uL Lymphocytes # (1.0-4.8) k/uL Monocytes # (0-1.0) k/uL Eosinophils # (0-0.7) k/uL Basophils # (0-0.2) k/uL PT 9.8 L (10.0-12.5) sec INR 0.9 (<1.2) APTT 22.3 (22.0-30.0) sec Sodium 139 (137-145) mmol/L Potassium 4.4 (3.5-5.1) mmol/L Chloride 100 (98-107) mmol/L Carbon Dioxide 29 (22-30) mmol/L Anion Gap 10 mmol/L BUN 24 H (7-17) mg/dL Creatinine 1.10 H (0.52-1.04) mg/dL Est GFR (CKD-EPI)AfAm 56 (>60 ml/min/1.73 sqM) Est GFR (CKD-EPI)NonAf 49 (>60 ml/min/1.73 sqM) Glucose 126 H (74-99) mg/dL Plasma Lactic Acid Leon 1.2 (0.7-2.0) mmol/L Calcium 9.7 (8.4-10.2) mg/dL Magnesium (1.6-2.3) mg/dL Total Bilirubin 0.5 (0.2-1.3) mg/dL AST 31 (14-36) U/L ALT 33 (4-34) U/L Alkaline Phosphatase 97 (38-126) U/L Troponin I (0.000-0.034) ng/mL Total Protein 6.9 (6.3-8.2) g/dL Albumin 4.4 (3.5-5.0) g/dL Amylase 66 (30-110) U/L Lipase 224 (23-300) U/L Urine Color Urine Appearance (Clear) Urine pH (5.0-8.0) Ur Specific [place] (1.001-1.035) Urine Protein (Negative) Urine Glucose (UA) (Negative) Urine Ketones (Negative) Urine Blood (Negative) Urine Nitrite (Negative) Urine Bilirubin (Negative) Urine Urobilinogen (<2.0) mg/dL Ur Leukocyte Esterase (Negative) Urine RBC (0-5) /hpf Urine WBC (0-5) /hpf Ur Squamous Epith Cells (0-4) /hpf Amorphous Sediment (None) /hpf Urine Bacteria (None) /hpf Hyaline Casts (0-2) /lpf Urine Mucus (None) /hpf Influenza Type A (PCR) (Not Detectd) Influenza Type B (PCR) (Not Detectd) RSV (PCR) (Not Detectd) SARS-CoV-2 (PCR) (Not Detectd) 03/13/23 03/13/23 03/13/23 Range/Units 00:57 00:58 00:58 WBC 11.6 H (3.8-10.6) k/uL RBC 4.51 (3.80-5.40) m/uL Hgb 14.5 (11.4-16.0) gm/dL Hct 42.6 (34.0-46.0) % MCV 94.5 (80.0-100.0) fL MCH 32.2 (25.0-35.0) pg MCHC 34.1 (31.0-37.0) g/dL RDW 13.0 (11.5-15.5) % Plt Count 219 (150-450) k/uL MPV 7.1 Neutrophils % 83 % Lymphocytes % 10 % Monocytes % 4 % Eosinophils % 1 % Basophils % 0 % Neutrophils # 9.6 H (1.3-7.7) k/uL Lymphocytes # 1.1 (1.0-4.8) k/uL Monocytes # 0.5 (0-1.0) k/uL Eosinophils # 0.1 (0-0.7) k/uL Basophils # 0.1 (0-0.2) k/uL PT (10.0-12.5) sec INR (<1.2) APTT (22.0-30.0) sec Sodium (137-145) mmol/L Potassium (3.5-5.1) mmol/L Chloride (98-107) mmol/L Carbon Dioxide (22-30) mmol/L Anion Gap mmol/L BUN (7-17) mg/dL Creatinine (0.52-1.04) mg/dL Est GFR (CKD-EPI)AfAm (>60 ml/min/1.73 sqM) Est GFR (CKD-EPI)NonAf (>60 ml/min/1.73 sqM) Glucose (74-99) mg/dL Plasma Lactic Acid Leon (0.7-2.0) mmol/L Calcium (8.4-10.2) mg/dL Magnesium (1.6-2.3) mg/dL Total Bilirubin (0.2-1.3) mg/dL AST (14-36) U/L ALT (4-34) U/L Alkaline Phosphatase (38-126) U/L Troponin I <0.012 (0.000-0.034) ng/mL Total Protein (6.3-8.2) g/dL Albumin (3.5-5.0) g/dL Amylase (30-110) U/L Lipase (23-300) U/L Urine Color Yellow Urine Appearance Clear (Clear) Urine pH 6.5 (5.0-8.0) Ur Specific [place] 1.027 (1.001-1.035) Urine Protein Trace H (Negative) Urine Glucose (UA) Negative (Negative) Urine Ketones Negative (Negative) Urine Blood Negative (Negative) Urine Nitrite Negative (Negative) Urine Bilirubin Negative (Negative) Urine Urobilinogen <2.0 (<2.0) mg/dL Ur Leukocyte Esterase Small H (Negative) Urine RBC 2 (0-5) /hpf Urine WBC 12 H (0-5) /hpf Ur Squamous Epith Cells 11 H (0-4) /hpf Amorphous Sediment Rare H (None) /hpf Urine Bacteria Few H (None) /hpf Hyaline Casts 13 H (0-2) /lpf Urine Mucus Rare H (None) /hpf Influenza Type A (PCR) (Not Detectd) Influenza Type B (PCR) (Not Detectd) RSV (PCR) (Not Detectd) SARS-CoV-2 (PCR) (Not Detectd) 03/13/23 03/13/23 Range/Units 00:58 02:32 WBC (3.8-10.6) k/uL RBC (3.80-5.40) m/uL Hgb (11.4-16.0) gm/dL Hct (34.0-46.0) % MCV (80.0-100.0) fL MCH (25.0-35.0) pg MCHC (31.0-37.0) g/dL RDW (11.5-15.5) % Plt Count (150-450) k/uL MPV Neutrophils % % Lymphocytes % % Monocytes % % Eosinophils % % Basophils % % Neutrophils # (1.3-7.7) k/uL Lymphocytes # (1.0-4.8) k/uL Monocytes # (0-1.0) k/uL Eosinophils # (0-0.7) k/uL Basophils # (0-0.2) k/uL PT (10.0-12.5) sec INR (<1.2) APTT (22.0-30.0) sec Sodium (137-145) mmol/L Potassium (3.5-5.1) mmol/L Chloride (98-107) mmol/L Carbon Dioxide (22-30) mmol/L Anion Gap mmol/L BUN (7-17) mg/dL Creatinine (0.52-1.04) mg/dL Est GFR (CKD-EPI)AfAm (>60 ml/min/1.73 sqM) Est GFR (CKD-EPI)NonAf (>60 ml/min/1.73 sqM) Glucose (74-99) mg/dL Plasma Lactic Acid Leon (0.7-2.0) mmol/L Calcium (8.4-10.2) mg/dL Magnesium 1.7 (1.6-2.3) mg/dL Total Bilirubin (0.2-1.3) mg/dL AST (14-36) U/L ALT (4-34) U/L Alkaline Phosphatase (38-126) U/L Troponin I (0.000-0.034) ng/mL Total Protein (6.3-8.2) g/dL Albumin (3.5-5.0) g/dL Amylase (30-110) U/L Lipase (23-300) U/L Urine Color Urine Appearance (Clear) Urine pH (5.0-8.0) Ur Specific [place] (1.001-1.035) Urine Protein (Negative) Urine Glucose (UA) (Negative) Urine Ketones (Negative) Urine Blood (Negative) Urine Nitrite (Negative) Urine Bilirubin (Negative) Urine Urobilinogen (<2.0) mg/dL Ur Leukocyte Esterase (Negative) Urine RBC (0-5) /hpf Urine WBC (0-5) /hpf Ur Squamous Epith Cells (0-4) /hpf Amorphous Sediment (None) /hpf Urine Bacteria (None) /hpf Hyaline Casts (0-2) /lpf Urine Mucus (None) /hpf Influenza Type A (PCR) Not Detected (Not Detectd) Influenza Type B (PCR) Not Detected (Not Detectd) RSV (PCR) Not Detected (Not Detectd) SARS-CoV-2 (PCR) Not Detected (Not Detectd) - EKG Data -: EKG Interpreted by Me EKG Comments: 12-lead Electrocardiogram Interpretation Note EKG was reviewed and interpreted by myself. 12-lead ECG performed at SIRS 055 is interpreted by me as revealing normal sinus rhythm at a rate of 74 beats per minute. [place] is normal. ND interval is 133 ms, QRS duration is 129 ms, QTc is 442 ms.. There were no ST or T wave abnormalities to suggest myocardial ischemia or injury. R wave progression across the precordium was satisfactory. By my interpretation this EKG is non-diagnostic for acute ischemia. 12-lead Electrocardiogram Interpretation Note EKG was reviewed and interpreted by myself. 12-lead ECG performed at 0130 is interpreted by me as revealing normal sinus rhythm at a rate of 73 beats per minute. [place] is normal. ND interval is 143 ms, QRS duration is 119 ms, QTc is 436 ms.. There were no ST or T wave abnormalities to suggest myocardial ischemia or injury. R wave progression across the precordium was satisfactory. By my interpretation this EKG is non-diagnostic for acute ischemia. Disposition Clinical Impression: Small bowel obstruction Disposition: ADMITTED IP TO THIS HOSP Condition: Stable Time of Disposition: 04:04
[2023-03-13] MEDS: SODIUM CHLORIDE 0.9% 1,000 ML IV SCH ×2 (04:08→14:58)
[2023-03-13] MEDS ORDERED: fentaNYL (PF) 50 MCG/ML 2 ML AMP IVP STA (05:39)
[2023-03-13] MEDS ORDERED: LEVOFLOXACIN 500MG-D5W PMX 500 MG in DEXTROSE/WATER 1 100ML.BAG IVPB STA (05:53)
[2023-03-13] MEDS ORDERED: metroNIDAZOLE-NS PMX 500 MG in SALINE 1 100ML.BAG IVPB STA (05:54)
[2023-03-13] MEDS: ONDANSETRON 4 MG/2 ML VIAL IVP PRN (06:25)
[2023-03-13] MEDS ORDERED: PROCHLORPERAZINE SUPPOSITORY 25 MG SUPP RECTAL PRN (08:31)
[2023-03-13] MEDS: fentaNYL (PF) 50 MCG/ML 2 ML AMP IVP PRN ×2 (08:46→13:49)
[2023-03-13] MEDS: PANTOPRAZOLE 40 MG/10 ML VIAL IV SCH (08:47)
[2023-03-13] MEDS ORDERED: METOCLOPRAMIDE 5 MG/ML 2 ML VIAL IVP STA (09:00)
--- NOTE | 2023-03-13 10:22 | XR ---
EXAMINATION TYPE: XR KUB portable DATE OF EXAM: 03/13/2023 COMPARISON: 03/13/2023 HISTORY: Bowel obstruction TECHNIQUE: AP supine abdomen FINDINGS: Air and some fecal debris is in the ascending colon region. Some nonspecific small bowel ga s is within the mid abdomen. Small amount of air is within the descending colon. Large urinary bladde r filled with contrast is evident. Cystocele may be present. Psoas margins are normal. Organomegaly is not evident. Surgical clips are in the left paraspinal mariusz on IMPRESSION: 1. Findings to suggest small bowel obstruction identified by CT are not readily apparent on the curr ent exam. Continued follow-up recommended
--- NOTE | 2023-03-13 13:29 | P.GSCN ---
History of Present Illness Consult date: 03/13/23 History of present illness: Patient reports multiple abdominal surgeries including hysterectomy appendectomy. First episode of bowel obstruction started yesterday afternoon. NG tube just inserted over 800-mL. Reports acute abdominal distention with generalized abdominal pain. Symptoms have improved after NG tube insertion. CT reviewed with transition in mid-abdomen. May have ice chips and popsicles with continued bowel rest. Past Medical History Past Medical History: Cancer, Deep Vein Thrombosis (DVT), GERD/Reflux, Hyperli pidemia, Hypertension, Osteoarthritis (OA), Pulmonary Embolus (PE), Thyroid Disorder Additional Past Medical History / Comment(s): gluten intolerance, DVT in leg @age of 12, resulted in PE, Rt breast cancer diagnosis- Jan 2020. 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 LEFT PORT. History of Any Multi-Drug Resistant Organisms: C-DIFF Year Discovered:: 2020 MDRO Source:: stool Past Surgical History: Appendectomy, Breast Surgery, Hysterectomy, Orthopedic Surgery Additional Past Surgical History / Comment(s): DONATED LEFT KIDNEY. breast reduction, abdominoplasty, right rotator cuff repair, right hand thumb arthroplasty, cataracts , Rt breast biopsy, RIGHT BREAST LUMPECTOMY ., PORT A CATH LT CHEST, left thumb and left ring finger arthroplasty, revison carpal tunnel left wrist. Past Anesthesia/Blood Transfusion Reactions: Motion Sickness, Postoperative Nausea & Vomiting (PONV) Past Psychological History: No Psychological Hx Reported Smoking Status: Never smoker Past Alcohol Use History: None Reported Past Drug Use History: None Reported - Past Family History Mother Family Medical History: Cancer Additional Family Medical History / Comment(s): Non Hodgkins Lymphoma Medications and Allergies Home Medications Medication Instructions Recorded Confirmed Type Metoprolol Succinate (ER) [Toprol 25 mg PO DAILY 03/14/20 03/13/23 History Xl] Gabapentin 300 mg PO BID 10/09/20 03/13/23 History L.acidoph,Paracasei, B.lactis 1 cap PO DAILY 05/12/21 03/13/23 History [Probiotic] Losartan Potassium [Cozaar] 12.5 mg PO DAILY 05/12/21 03/13/23 History Magnesium Chloride [Slow-Mag] 128 mg PO BID 05/12/21 03/13/23 History RABEprazole SODIUM [Aciphex] 20 mg PO DAILY 07/20/21 03/13/23 History aMILoride HCL 5 mg PO DAILY 07/20/21 03/13/23 History Alirocumab [Praluent Pen] 150 injection SQ Q14D 07/21/21 03/13/23 History Ankit/D3/Mag11/Zinc/Pipe Buffer/Bobby/Bor 1 tab PO HS 03/13/23 03/13/23 History [Caltrate 600+D Plus Tablet] Cholecalciferol [Vitamin D3 (25 25 mcg PO DAILY 03/13/23 03/13/23 History Mcg = 1000 Iu)] Lysine [l-Lysine] 600 mg PO DAILY 03/13/23 03/13/23 History Mirabegron [Myrbetriq] 50 mg PO HS 03/13/23 03/13/23 History Phentermine HCl [Adipex-P] 37.5 mg PO DAILY 03/13/23 03/13/23 History Propylene Glycol [Systane Complete] 1 - 2 drop BOTH EYES QID PRN 03/13/23 03/13/23 History Allergies Allergy/AdvReac Type Severity Reaction Status Date / Time cephalexin monohydrate Allergy Rash/Hives Verified 03/13/23 12:32 [From Keflex] hydromorphone HCl Allergy Anaphylaxis, Verified 03/13/23 12:32 [From Dilaudid] DYSPNEA ketorolac tromethamine Allergy Rash/Hives Verified 03/13/23 12:32 [From Toradol] Gwacobv-KFW-BlO Reductase Allergy MUSCLE PAIN Verified 03/13/23 12:32 Inhibitor [Bplvjfs-Ttw-Trx Reductase Inhibitor] Sulfa (Sulfonamide Allergy Rash/Hives Verified 03/13/23 12:32 Antibiotics) tomato Allergy Rash/Hives Verified 03/13/23 12:32 tree nut Allergy Rash/Hives Verified 03/13/23 12:32 VICRYL SUTURES Allergy Mild abcess at Uncoded 03/13/23 00:50 incision site Surgical - Exam Vital Signs Temp Pulse Resp BP Pulse Ox 97.8 F 78 18 139/78 96 03/13/23 00:48 03/13/23 00:48 03/13/23 00:48 03/13/23 00:48 03/13/23 00:48 Results - Labs 03/13/23 00:58 03/13/23 00:57 Abnormal Lab Results - Last 24 Hours (Table) 03/13/23 03/13/23 03/13/23 Range/Units 00:57 00:57 00:58 WBC 11.6 H (3.8-10.6) k/uL Neutrophils # 9.6 H (1.3-7.7) k/uL PT 9.8 L (10.0-12.5) sec BUN 24 H (7-17) mg/dL Creatinine 1.10 H (0.52-1.04) mg/dL Glucose 126 H (74-99) mg/dL Urine Protein (Negative) Ur Leukocyte Esterase (Negative) Urine WBC (0-5) /hpf Ur Squamous Epith Cells (0-4) /hpf Amorphous Sediment (None) /hpf Urine Bacteria (None) /hpf Hyaline Casts (0-2) /lpf Urine Mucus (None) /hpf 03/13/23 Range/Units 00:58 WBC (3.8-10.6) k/uL Neutrophils # (1.3-7.7) k/uL PT (10.0-12.5) sec BUN (7-17) mg/dL Creatinine (0.52-1.04) mg/dL Glucose (74-99) mg/dL Urine Protein Trace H (Negative) Ur Leukocyte Esterase Small H (Negative) Urine WBC 12 H (0-5) /hpf Ur Squamous Epith Cells 11 H (0-4) /hpf Amorphous Sediment Rare H (None) /hpf Urine Bacteria Few H (None) /hpf Hyaline Casts 13 H (0-2) /lpf Urine Mucus Rare H (None) /hpf Diabetes panel 03/13/23 Range/Units 00:57 Sodium 139 (137-145) mmol/L Potassium 4.4 (3.5-5.1) mmol/L Chloride 100 (98-107) mmol/L Carbon Dioxide 29 (22-30) mmol/L BUN 24 H (7-17) mg/dL Creatinine 1.10 H (0.52-1.04) mg/dL Glucose 126 H (74-99) mg/dL Calcium 9.7 (8.4-10.2) mg/dL AST 31 (14-36) U/L ALT 33 (4-34) U/L Alkaline Phosphatase 97 (38-126) U/L Total Protein 6.9 (6.3-8.2) g/dL Albumin 4.4 (3.5-5.0) g/dL Calcium panel 03/13/23 Range/Units 00:57 Calcium 9.7 (8.4-10.2) mg/dL Albumin 4.4 (3.5-5.0) g/dL Pituitary panel 03/13/23 Range/Units 00:57 Sodium 139 (137-145) mmol/L Potassium 4.4 (3.5-5.1) mmol/L Chloride 100 (98-107) mmol/L Carbon Dioxide 29 (22-30) mmol/L BUN 24 H (7-17) mg/dL Creatinine 1.10 H (0.52-1.04) mg/dL Glucose 126 H (74-99) mg/dL Calcium 9.7 (8.4-10.2) mg/dL Adrenal panel 03/13/23 Range/Units 00:57 Sodium 139 (137-145) mmol/L Potassium 4.4 (3.5-5.1) mmol/L Chloride 100 (98-107) mmol/L Carbon Dioxide 29 (22-30) mmol/L BUN 24 H (7-17) mg/dL Creatinine 1.10 H (0.52-1.04) mg/dL Glucose 126 H (74-99) mg/dL Calcium 9.7 (8.4-10.2) mg/dL Total Bilirubin 0.5 (0.2-1.3) mg/dL AST 31 (14-36) U/L ALT 33 (4-34) U/L Alkaline Phosphatase 97 (38-126) U/L Total Protein 6.9 (6.3-8.2) g/dL Albumin 4.4 (3.5-5.0) g/dL
--- NOTE | 2023-03-13 14:27 | XR ---
EXAMINATION TYPE: XR chest 1V confirm line plcmt DATE OF EXAM: 03/13/2023 2:18 PM CLINICAL INDICATION:Female, 77 years old with history of ng tube placement; [facility] COMPARISON: 03/13/2023 1:46 AM TECHNIQUE: XR chest 1V confirm line plcmt Portable AP radiograph of the chest.. FINDINGS: Lines/Tubes/Devices: Left IJ approach Mediport with its tip at the cavoatrial junction unchanged. NG tube placed, extendin g into the left upper quadrant with tip and sidehole over the gastric body. Heart/mediastinum: Heart appears mildly enlarged. Mildly tortuous aorta with atherosclerotic calcifi cation. Pulmonary vascularity: Not increased, Lungs/Pleura: Low lung volumes are present with mild bibasilar atelectasis, more on the left. There i s no evidence of pleural effusion, focal consolidation, or pneumothorax. Musculoskeletal: No acute osseous abnormality demonstrated in the limits of the exam. Mild degenerat abel changes of the shoulders and spine. Other findings: Surgical clips in the left upper abdomen and right axilla. IMPRESSION: 1. Lines and tubes in place as above. 2. Low lung volume exam with hypoventilatory changes. Otherwise no acute pulmonary abnormality.
--- NOTE | 2023-03-13 14:34 | P.HPIM ---
History of Present Illness H&P Date: 03/13/23 Chief Complaint: Abdominal pain * 77-year-old patient with past medical history significant for hypertension, hypothyroid, gastroesophageal reflux disease, previous history of thromboembolism, history of breast cancer, presented to the emergency department with complaints of acute onset abdominal pain.Patient significant surgical history includes but not limited to abdominoplasty, appendectomy, right breast lumpectomy, hysterectomy * Patient had symptom onset 1 day prior to presentation, imaging obtained showed chest x-ray which showed chronic changes atelectasis is noted * CT abdomen and pelvis was obtained which showed distended stomach with air- fluid level, dilated small bowel loops and mid abdomen, distal colon diverticula noted in segmental 3 cm duodenal diverticulum was noted * Blood work obtained in ER included CBC which were WBC 11.6 and 1114.5 platelet 219 INR of 0.9 * Serum chemistry showed sodium 139, potassium 4.4, B UN 24 creatinine 1.1 glucose 126 troponin within normal limits * Patient was treated for bowel obstruction was offered a nasogastric tube in ER she initially refused, general surgery was contacted who initially is decided to admit under the service however later on 03/13/2023 emergency team called and patient to be admitted under medicine service for general surgery on consultation * Patient was initially refusing an NG tube however later sure she agreed. Patient is aprofession and she was explained in detail regarding the pathophysiology of bowel obstruction of risk for aspiration REVIEW OF SYSTEMS: Nausea, vomiting, abdominal pain CONSTITUTIONAL: No fever, no malaise, no fatigue. HEENT: No recent visual problems or hearing problems. Denied any sore throat. CARDIOVASCULAR: No chest pain, orthopnea, PND, no palpitations, no syncope. PULMONARY: No shortness of breath, no cough, no hemoptysis. GASTROINTESTINAL: Nausea, vomiting, abdominal pain NEUROLOGICAL: No headaches, no weakness, no numbness. HEMATOLOGICAL: Denies any bleeding or petechiae. GENITOURINARY: Denies any burning micturition, frequency, or urgency. MUSCULOSKELETAL/RHEUMATOLOGICAL: Denies any joint pain, swelling, or any muscle pain. ENDOCRINE: Denies any polyuria or polydipsia. PHYSICAL EXAMINATION: GENERAL: The patient is alert and oriented x3, not in any acute distress. Well developed, well nourished. HEENT: Pupils are round and equally reacting to light. EOMI. CARDIOVASCULAR: S1 and S2 present. No murmurs, rubs, or gallops. PULMONARY: Chest is clear to auscultation, no wheezing or crackles. ABDOMEN: Distended, nontender on palpation hypoactive bowel sounds MUSCULOSKELETAL: No joint swelling or deformity. EXTREMITIES: No cyanosis, clubbing, or pedal edema. NEUROLOGICAL: Gross neurological examination did not reveal any focal deficits. SKIN: No rashes. Past Medical History Past Medical History: Cancer, Deep Vein Thrombosis (DVT), GERD/Reflux, Hyperlipidemia, Hypertension, Osteoarthritis (OA), Pulmonary Embolus (PE), Thyroid Disorder Additional Past Medical History / Comment(s): gluten intolerance, DVT in leg @age of 12, resulted in PE, Rt breast cancer diagnosis- Jan 2020. 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 LEFT PORT. History of Any Multi-Drug Resistant Organisms: C-DIFF Date of last positivie culture/infection: 2020 MDRO Source:: stool Past Surgical History: Appendectomy, Breast Surgery, Hysterectomy, Orthopedic Surgery Additional Past Surgical History / Comment(s): DONATED LEFT KIDNEY. breast reduction, abdominoplasty, right rotator cuff repair, right hand thumb arth roplasty, cataracts , Rt breast biopsy, RIGHT BREAST LUMPECTOMY ., PORT A CATH LT CHEST, left thumb and left ring finger arthroplasty, revison carpal tunnel left wrist. Past Anesthesia/Blood Transfusion Reactions: Motion Sickness, Postoperative Nausea & Vomiting (PONV) Past Psychological History: No Psychological Hx Reported Smoking Status: Never smoker Past Alcohol Use History: None Reported Past Drug Use History: None Reported - Past Family History Mother Family Medical History: Cancer Additional Family Medical History / Comment(s): Non Hodgkins Lymphoma Medications and Allergies Home Medications Medication Instructions Recorded Confirmed Type Metoprolol Succinate (ER) [Toprol 25 mg PO DAILY 03/14/20 03/13/23 History Xl] Gabapentin 300 mg PO BID 10/09/20 03/13/23 History L.acidoph,Paracasei, B.lactis 1 cap PO DAILY 05/12/21 03/13/23 History [Probiotic] Losartan Potassium [Cozaar] 12.5 mg PO DAILY 05/12/21 03/13/23 History Magnesium Chloride [Slow-Mag] 128 mg PO BID 05/12/21 03/13/23 History RABEprazole SODIUM [Aciphex] 20 mg PO DAILY 07/20/21 03/13/23 History aMILoride HCL 5 mg PO DAILY 07/20/21 03/13/23 History Alirocumab [Praluent Pen] 150 injection SQ Q14D 07/21/21 03/13/23 History Ankit/D3/Mag11/Zinc/Asbestos Removal Supervisor/Bobby/Bor 1 tab PO HS 03/13/23 03/13/23 History [Caltrate 600+D Plus Tablet] Cholecalciferol [Vitamin D3 (25 25 mcg PO DAILY 03/13/23 03/13/23 History Mcg = 1000 Iu)] Lysine [l-Lysine] 600 mg PO DAILY 03/13/23 03/13/23 History Mirabegron [Myrbetriq] 50 mg PO HS 03/13/23 03/13/23 History Phentermine HCl [Adipex-P] 37.5 mg PO DAILY 03/13/23 03/13/23 History Propylene Glycol [Systane Complete] 1 - 2 drop BOTH EYES QID PRN 03/13/23 03/13/23 History Allergies Allergy/AdvReac Type Severity Reaction Status Date / Time cephalexin monohydrate Allergy Rash/Hives Verified 03/13/23 12:32 [From Keflex] hydromorphone HCl Allergy Anaphylaxis, Verified 03/13/23 12:32 [From Dilaudid] DYSPNEA ketorolac tromethamine Allergy Rash/Hives Verified 03/13/23 12:32 [From Toradol] Icebytn-TYE-FpP Reductase Allergy MUSCLE PAIN Verified 03/13/23 12:32 Inhibitor [Zgyoufu-Ovi-Hdc Reductase Inhibitor] Sulfa (Sulfonamide Allergy Rash/Hives Verified 03/13/23 12:32 Antibiotics) tomato Allergy Rash/Hives Verified 03/13/23 12:32 tree nut Allergy Rash/Hives Verified 03/13/23 12:32 VICRYL SUTURES Allergy Mild abcess at Uncoded 03/13/23 00:50 incision site Physical Exam Vitals: Vital Signs Temp Pulse Resp BP Pulse Ox 03/13/23 08:00 98 F 79 18 142/97 96 03/13/23 00:48 97.8 F 78 18 139/78 96 Intake and Output 03/12/23 03/13/23 03/13/23 22:59 06:59 14:59 Intake Total 1000 Balance 1000 Intake: IV 1000 Invasive Line 1 1000 Other: Voiding Method Toilet Weight 69.853 kg Results CBC & Chem 7: 03/13/23 00:58 03/13/23 00:57 Labs: Abnormal Lab Results - Last 24 Hours (Table) 03/13/23 03/13/23 03/13/23 Range/Units 00:57 00:57 00:58 WBC 11.6 H (3.8-10.6) k/uL Neutrophils # 9.6 H (1.3-7.7) k/uL PT 9.8 L (10.0-12.5) sec BUN 24 H (7-17) mg/dL Creatinine 1.10 H (0.52-1.04) mg/dL Glucose 126 H (74-99) mg/dL Urine Protein (Negative) Ur Leukocyte Esterase (Negative) Urine WBC (0-5) /hpf Ur Squamous Epith Cells (0-4) /hpf Amorphous Sediment (None) /hpf Urine Bacteria (None) /hpf Hyaline Casts (0-2) /lpf Urine Mucus (None) /hpf 03/13/23 Range/Units 00:58 WBC (3.8-10.6) k/uL Neutrophils # (1.3-7.7) k/uL PT (10.0-12.5) sec BUN (7-17) mg/dL Creatinine (0.52-1.04) mg/dL Glucose (74-99) mg/dL Urine Protein Trace H (Negative) Ur Leukocyte Esterase Small H (Negative) Urine WBC 12 H (0-5) /hpf Ur Squamous Epith Cells 11 H (0-4) /hpf Amorphous Sediment Rare H (None) /hpf Urine Bacteria Few H (None) /hpf Hyaline Casts 13 H (0-2) /lpf Urine Mucus Rare H (None) /hpf Thrombosis Risk Factor Assmnt - DVT/VTE Prophylaxis DVT/VTE Prophylaxis: Mechanical Prophylaxis ordered Assessment and Plan Assessment: Assessment and plan * Acute small bowel obstruction * Acute kidney injury * History of hypertension * History of hypothyroid * In regards to bowel obstruction, CT abdomen and pelvis obtained, serial abdominal exams, x-ray daily ordered, general surgery consulted, continue patient on IV fluids>> strongly recommended ordered nasogastric tube decom pression. Order is in place * In regards to acute kidney injury continue with fluid resuscitation follow-up on renal profile * In regards to hypertension, patient takes metoprolol, losartan, amiloride at home, nephrotoxic medications to be held * In regards to hypothyroid continue Synthyroid once diet advanced * CODE STATUS is full code Time with Patient: Greater than 30
[2023-03-13] MEDS ORDERED: hydrALAZINE HCL 20 MG/ML 1 ML VIAL IVP PRN (14:35)
[2023-03-13] MEDS: metroNIDAZOLE-NS PMX 500 MG in SALINE 1 100ML.BAG IVPB SCH (16:16)
[2023-03-13] MEDS: GABAPENTIN 300 MG CAP PO SCH (22:24)
[2023-03-14] MEDS: SODIUM CHLORIDE 0.9% 1,000 ML IV SCH ×3 (01:04→21:01)
[2023-03-14] MEDS: metroNIDAZOLE-NS PMX 500 MG in SALINE 1 100ML.BAG IVPB SCH ×4 (01:05→23:45)
[2023-03-14] MEDS: fentaNYL (PF) 50 MCG/ML 2 ML AMP IVP PRN (01:13)
[2023-03-14] MEDS ORDERED: PANTOPRAZOLE 40 MG TABLET PO SCH (07:30)
[2023-03-14] MEDS ORDERED: fentaNYL (PF) 50 MCG/ML 2 ML AMP IVP PRN (08:38)
[2023-03-14] MEDS ORDERED: ACETAMINOPHEN IV (For NPO) 1,000 MG in EMPTY BAG 1 BAG IVPB PRN (08:38)
[2023-03-14] MEDS ORDERED: LEVOFLOXACIN 500MG-D5W PMX 500 MG in DEXTROSE/WATER 1 100ML.BAG IVPB SCH (09:00)
[2023-03-14] MEDS ORDERED: NON FORMULARY DRUG (Phentermine Hcl [Adipex-P] 37.5 MG Tablet) PO SCH (09:00)
[2023-03-14] MEDS: PANTOPRAZOLE 40 MG/10 ML VIAL IV SCH (10:45)
[2023-03-14] MEDS: GABAPENTIN 300 MG CAP PO SCH ×2 (10:52→21:01)
[2023-03-14] MEDS: METOPROLOL SUCCINATE (ER) 25 MG TAB.ER.24H PO SCH (10:53)
[2023-03-14 11:12] LABS: African American GFR (CKD) 68 (>60 ml/min/1.73 sqM); Anion Gap 5 mmol/L; Blood Urea Nitrogen 16 mg/dL (7-17); Calcium 7.9 mg/dL (8.4-10.2); Carbon Dioxide 27 mmol/L (22-30); Chloride 110 mmol/L (98-107); Glucose 87 mg/dL (74-99); Magnesium 1.7 mg/dL (1.6-2.3); Non-African American GFR(CKD) 59 (>60 ml/min/1.73 sqM); Phosphorus 2.3 mg/dL (2.5-4.5); Potassium 3.7 mmol/L (3.5-5.1); Sodium 142 mmol/L (137-145)
[2023-03-14 11:17] LABS: Basophils # (A) 0.03 X 10*3/uL (0.00-0.10); Basophils % (A) 0.5 %; Eosinophils # (A) 0.08 X 10*3/uL (0.04-0.35); Eosinophils % (A) 1.3 %; HCT 39.3 % (37.2-46.3); HGB 12.3 g/dL (12.0-15.0); Lymphocytes # (A) 0.85 X 10*3/uL (0.90-5.00); Lymphocytes % (A) 13.7 %; MCH 30.8 pg (27.0-32.0); MCHC 31.3 g/dL (32.0-37.0); MCV 98.5 FL (80.0-97.0); Mean Platelet Volume 9.2 FL (9.5-12.2); Monocytes # (A) 0.43 X 10*3/uL (0.20-1.00); Monocytes % (A) 6.9 %; NRBC Per 100 WBC 0 X 10*3/uL (0.00-0.01); Neutrophils # (A) 4.79 X 10*3/uL (1.80-7.70); Neutrophils % (A) 77.1 %; Platelet Count 163 X 10*3/uL (140-440); RBC 3.99 X 10*6/uL (4.10-5.20); RDW 13.1 % (11.5-14.5); WBC 6.21 X 10*3/uL (4.50-10.00)
--- NOTE | 2023-03-14 11:26 | P.CRDCN ---
History of Present Illness History of present illness: HISTORY OF PRESENT ILLNESS: This is a 77 her old female with a past medical history significant for left bundle branch block, hyperlipidemia with statin intolerance, hypertension. Patient follows in the office with Dr. Lowry. We have been asked to see the patient in consultation for chest pain. Patient examined at the bedside. She presented to the hospital with a chief complaint of abdominal pain, nausea, and vomiting. The patient was found to have a bowel obstruction and an NG tube was inserted with almost 800 mL of gastric contents. The patient states that she had chest pain initially when she came in but describes it as a radiation from her abdomen up to her epigastrium. She denies any further chest discomfort since the NG tube was inserted. * EKG reveals sinus mechanism with left bundle branch block. * Chest xray sinus mechanism with left bundle branch block * Laboratory data: Troponin negative 2 * Current home cardiac medications include losartan 12.5 mg daily and metoprolol succinate 25 mg daily * Most recent echocardiogram obtained in 2021 revealed ejection fraction 53% with mild TR * Patient underwent Lexiscan stress test in February 2022 with no evidence of acute ischemia REVIEW OF SYSTEMS: At the time of my exam: CONSTITUTIONAL: Denies fever or chills. HEENT: Denies blurred vision, vision changes, or eye pain. Denies hemoptysis CARDIOVASCULAR: Denies chest pain. Denies orthopnea. Denies PND. Denies palpitations RESPIRATORY: Denies shortness of breath. GASTROINTESTINAL: Denies abdominal pain. Denies nausea or vomiting. HEMATOLOGIC: Denies bleeding disorders. GENITOURINARY: Denies any blood in urine. SKIN: Denies pruitis. Denies rash. PHYSICAL EXAM: VITAL SIGNS: Reviewed. GENERAL: Well-developed in no acute distress. HEENT: Head is normocephalic. Pupils are equal, round. Sclerae anicteric. Mucous membranes of the mouth are moist. Neck supple. No JVD or thyromegaly LUNGS: Respirations even and unlabored. Lungs essentially clear to auscultation bilaterally. HEART: Regular rate and rhythm. S1 and S2 heard. ABDOMEN: Soft. Nondistended. Nontender. EXTREMITIES: Normal range of motion. No clubbing or cyanosis. Peripheral pulses intact. No lower extremity edema NEUROLOGIC: Awake and alert. Oriented x 3. ASSESSMENT: Abdominal pain, nausea, vomiting Small bowel obstruction Epigastric discomfort, secondary to above Known left bundle branch block Hypertension Hyperlipidemia with statin intolerance PLAN: An acute coronary event has been ruled out Obtain 2-D echo to assess cardiac structure and function Management of bowel obstruction per general surgery Further recommendations pending patient's course Nurse practitioner note has been reviewed by physician. Signing provider agrees with the documented findings, assessment, and plan of care. Past Medical History Past Medical History: Cancer, Deep Vein Thrombosis (DVT), GERD/Reflux, Hyperlipidemia, Hypertension, Osteoarthritis (OA), Pulmonary Embolus (PE), Thyroid Disorder Additional Past Medical History / Comment(s): gluten intolerance, DVT in leg @age of 12, resulted in PE, Rt breast cancer diagnosis- Jan 2020. 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 LEFT PORT. History of Any Multi-Drug Resistant Organisms: C-DIFF Date of last positivie culture/infection: 2020 MDRO Source:: stool Past Surgical History: Appendectomy, Breast Surgery, Hysterectomy, Orthopedic Surgery Additional Past Surgical History / Comment(s): DONATED LEFT KIDNEY. breast reduction, abdominoplasty, right rotator cuff repair, right hand thumb arthroplasty, cataracts , Rt breast biopsy, RIGHT BREAST LUMPECTOMY ., PORT A CATH LT CHEST, left thumb and left ring finger arthroplasty, revison carpal tunnel left wrist. Past Anesthesia/Blood Transfusion Reactions: Motion Sickness, Postoperative Nausea & Vomiting (PONV) Past Psychological History: No Psychological Hx Reported Smoking Status: Never smoker Past Alcohol Use History: None Reported Past Drug Use History: None Reported - Past Family History Mother Family Medical History: Cancer Additional Family Medical History / Comment(s): Non Hodgkins Lymphoma Medications and Allergies Home Medications Medication Instructions Recorded Confirmed Type Metoprolol Succinate (ER) [Toprol 25 mg PO DAILY 03/14/20 03/13/23 History Xl] Gabapentin 300 mg PO BID 10/09/20 03/13/23 History L.acidoph,Paracasei, B.lactis 1 cap PO DAILY 05/12/21 03/13/23 History [Probiotic] Losartan Potassium [Cozaar] 12.5 mg PO DAILY 05/12/21 03/13/23 History Magnesium Chloride [Slow-Mag] 128 mg PO BID 05/12/21 03/13/23 History RABEprazole SODIUM [Aciphex] 20 mg PO DAILY 07/20/21 03/13/23 History aMILoride HCL 5 mg PO DAILY 07/20/21 03/13/23 History Alirocumab [Praluent Pen] 150 injection SQ Q14D 07/21/21 03/13/23 History Ankit/D3/Mag11/Zinc/Financial Advisor Trainee/Bobby/Bor 1 tab PO HS 03/13/23 03/13/23 History [Caltrate 600+D Plus Tablet] Cholecalciferol [Vitamin D3 (25 25 mcg PO DAILY 03/13/23 03/13/23 History Mcg = 1000 Iu)] Lysine [l-Lysine] 600 mg PO DAILY 03/13/23 03/13/23 History Mirabegron [Myrbetriq] 50 mg PO HS 03/13/23 03/13/23 History Phentermine HCl [Adipex-P] 37.5 mg PO DAILY 03/13/23 03/13/23 History Propylene Glycol [Systane Complete] 1 - 2 drop BOTH EYES QID PRN 03/13/23 03/13/23 History Allergies Allergy/AdvReac Type Severity Reaction Status Date / Time cephalexin monohydrate Allergy Rash/Hives Verified 03/13/23 12:32 [From Keflex] hydromorphone HCl Allergy Anaphylaxis, Verified 03/13/23 12:32 [From Dilaudid] DYSPNEA ketorolac tromethamine Allergy Rash/Hives Verified 03/13/23 12:32 [From Toradol] Mwqldtl-YIK-HwG Reductase Allergy MUSCLE PAIN Verified 03/13/23 12:32 Inhibitor [Xokjrsu-Aym-Hpf Reductase Inhibitor] Sulfa (Sulfonamide Allergy Rash/Hives Verified 03/13/23 12:32 Antibiotics) tomato Allergy Rash/Hives Verified 03/13/23 12:32 tree nut Allergy Rash/Hives Verified 03/13/23 12:32 VICRYL SUTURES Allergy Mild abcess at Uncoded 03/13/23 00:50 incision site Physical Exam Vitals: Vital Signs Temp Pulse Pulse Resp BP BP Pulse Ox 03/14/23 08:12 97.7 F 77 18 152/75 93 L 03/14/23 02:00 97.1 F L 75 16 131/68 94 L 03/14/23 01:18 78 20 138/61 03/13/23 22:32 18 114/68 03/13/23 18:31 98.4 F 80 16 124/77 96 03/13/23 13:49 79 18 125/86 95 Intake and Output 03/13/23 03/14/23 03/14/23 22:59 06:59 14:59 Intake Total 600 Output Total 750 Balance -150 Intake: Intake, IV Titration 600 Amount Sodium Chloride 0.9% 1, 500 000 ml @ 100 mls/hr IV . Q10H FIDEL Rx#:[id number] metroNIDAZOLE-NS PMX 500 100 mg In Saline 1 100ml.bag @ 100 mls/hr IVPB Q8HR FIDEL Rx#:[id number] Output: Gastric Drainage 750 Other: # Voids 1 Results 03/13/23 00:58 03/14/23 08:53 Cardiac Enzymes 03/13/23 Range/Units 10:25 Troponin I <0.012 (0.000-0.034) ng/mL Comprehensive Metabolic Panel 03/14/23 Range/Units 08:53 Sodium 142 (137-145) mmol/L Potassium 3.7 (3.5-5.1) mmol/L Chloride 110 H (98-107) mmol/L Carbon Dioxide 27 (22-30) mmol/L BUN 16 (7-17) mg/dL Creatinine 0.94 (0.52-1.04) mg/dL Glucose 87 (74-99) mg/dL Calcium 7.9 L (8.4-10.2) mg/dL Current Medications Generic Name Dose Route Start Last Admin Trade Name Freq PRN Reason Stop Dose Admin Fentanyl Citrate 25 mcg 03/14/23 08:38 Fentanyl (Pf) 50 Mcg/Ml 2 Ml Amp IVP Q4HR PRN Severe Pain (Scale 7 to 10) Gabapentin 300 mg 03/13/23 21:00 03/14/23 10:52 Gabapentin 300 Mg Cap PO Not Given BID [facility] Hydralazine HCl 5 mg 03/13/23 14:35 03/14/23 10:44 Hydralazine Hcl 20 Mg/Ml 1 Ml Vial IVP 5 mg Q6HR PRN Administration Blood Pressure - High Sodium Chloride 1,000 mls @ 100 mls/hr 03/13/23 04:00 03/14/23 01:04 Saline 0.9% IV 100 mls/hr .Q10H FIDEL Administration Levofloxacin 500 mg/ IV 100 mls @ 100 mls/hr 03/14/23 09:00 Solution IVPB Q24HR FIDEL Protocol Metronidazole 500 mg/ IV 100 mls @ 100 mls/hr 03/13/23 16:00 03/14/23 10:48 Solution IVPB 100 mls/hr Q8HR FIEDL Administration Protocol Acetaminophen 1,000 mg/ IV 100 mls @ 400 mls/hr 03/14/23 08:38 03/14/23 10:44 Solution IVPB 03/15/23 08:39 400 mls/hr Q6HR PRN Administration Fever and/ or Pain Metoprolol Succinate 25 mg 03/14/23 09:00 03/14/23 10:53 Metoprolol Succinate (Er) 25 Mg Tab.Er.24h PO Not Given DAILY [facility] Naloxone HCl 0.2 mg 03/13/23 03:59 Naloxone 0.4 Mg/Ml 1 Ml Vial IV Q2M PRN Opioid Reversal Mirabegron [ 50 mg 03/13/23 21:00 03/13/23 22:28 Myrbetriq] 50 Mg Tab PO Not Given .Er.24h HS [facility] Ondansetron HCl 4 mg 03/13/23 03:59 03/13/23 06:25 Ondansetron 4 Mg/2 Ml Vial IVP 4 mg Q8HR PRN Administration Nausea And Vomiting Pantoprazole Sodium 40 mg 03/13/23 09:00 03/14/23 10:45 Pantoprazole 40 Mg/10 Ml Vial IV 40 mg DAILY FIDEL Administration Prochlorperazine Maleate 25 mg 03/13/23 08:31 Prochlorperazine Suppository 25 Mg Supp RECTAL Q12HR PRN Nausea And Vomiting Intake and Output 03/13/23 03/14/23 03/14/23 22:59 06:59 14:59 Intake Total 600 Output Total 750 Balance -150 Intake: Intake, IV Titration 600 Amount Sodium Chloride 0.9% 1, 500 000 ml @ 100 mls/hr IV . Q10H FIDEL Rx#:[id number] metroNIDAZOLE-NS PMX 500 100 mg In Saline 1 100ml.bag @ 100 mls/hr IVPB Q8HR FIDEL Rx#:[id number] Output: Gastric Drainage 750 Other: # Voids 1 03/13/23 00:58 03/14/23 08:53
[2023-03-14 11:27] LABS: Glucose,Whole Blood 71 mg/dL (70-110)
[2023-03-14 11:43] LABS: C Reactive Protein 1.1 mg/dL (<1.0)
--- NOTE | 2023-03-14 13:27 | P.PN ---
Subjective Progress Note Date: 03/14/23 * 77-year-old patient with past medical history significant for hypertension, hypothyroid, gastroesophageal reflux disease, previous history of thromboembolism, history of breast cancer, presented to the emergency department with complaints of acute onset abdominal pain.Patient significant surgical history includes but not limited to abdominoplasty, appendectomy, right breast lumpectomy, hysterectomy * Patient had symptom onset 1 day prior to presentation, imaging obtained showed chest x-ray which showed chronic changes atelectasis is noted * CT abdomen and pelvis was obtained which showed distended stomach with air- fluid level, dilated small bowel loops and mid abdomen, distal colon diverticula noted in segmental 3 cm duodenal diverticulum was noted * Blood work obtained in ER included CBC which were WBC 11.6 and 1114.5 platelet 219 INR of 0.9 * Serum chemistry showed sodium 139, potassium 4.4, B UN 24 creatinine 1.1 glucose 126 troponin within normal limits * Patient was treated for bowel obstruction was offered a nasogastric tube in ER she initially refused, general surgery was contacted who initially is decided to admit under the service however later on 03/13/2023 emergency team called and patient to be admitted under medicine service for general surgery on consultation * Patient was initially refusing an NG tube however later sure she agreed. 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 Patient was noted to have elevated blood pressure was 1 hydralazine after which patient had facial flushing. ALLERGY list updated likely similar to previous ALLERGIES patient agrees. Cardiology following general surgery following appreciate recommendations REVIEW OF SYSTEMS: Nausea, vomiting, abdominal pain resolved CONSTITUTIONAL: No fever, no malaise, no fatigue. HEENT: No recent visual problems or hearing problems. Denied any sore throat. CARDIOVASCULAR: No chest pain, orthopnea, PND, no palpitations, no syncope. PULMONARY: No shortness of breath, no cough, no hemoptysis. GASTROINTESTINAL: Nausea, vomiting, abdominal pain resolved NEUROLOGICAL: No headaches, no weakness, no numbness. HEMATOLOGICAL: Denies any bleeding or petechiae. GENITOURINARY: Denies any burning micturition, frequency, or urgency. MUSCULOSKELETAL/RHEUMATOLOGICAL: Denies any joint pain, swelling, or any muscle pain. ENDOCRINE: Denies any polyuria or polydipsia. PHYSICAL EXAMINATION: GENERAL: The patient is alert and oriented x3, not in any acute distress. Nasogastric tube in place HEENT: Pupils are round and equally reacting to light. EOMI. CARDIOVASCULAR: S1 and S2 present. No murmurs, rubs, or gallops. PULMONARY: Chest is clear to auscultation, no wheezing or crackles. ABDOMEN: Soft, hypoactive bowel sounds nontender on palpation MUSCULOSKELETAL: No joint swelling or deformity. EXTREMITIES: No cyanosis, clubbing, or pedal edema. NEUROLOGICAL: Gross neurological examination did not reveal any focal deficits. SKIN: No rashes. Objective - Vital Signs Vital signs: Vital Signs Temp 97.5 F L 03/14/23 11:25 Pulse 89 03/14/23 11:44 Resp 20 03/14/23 11:44 BP 148/73 03/14/23 11:44 Pulse Ox 96 03/14/23 11:44 FiO2 Intake & Output 03/13/23 03/14/23 03/14/23 18:59 06:59 18:59 Intake Total 600 Output Total 750 Balance -150 Weight 69.853 kg Intake: Intake, IV Titration 600 Amount Sodium Chloride 0.9% 1, 500 000 ml @ 100 mls/hr IV . Q10H FIDEL Rx#:[id number] metroNIDAZOLE-NS PMX 500 100 mg In Saline 1 100ml.bag @ 100 mls/hr IVPB Q8HR FIDEL Rx#:[id number] Output: Gastric Drainage 750 Other: # Voids 1 - Labs CBC & Chem 7: 03/14/23 08:53 03/14/23 08:53 Labs: Abnormal Lab Results - Last 24 Hours (Table) 03/14/23 03/14/23 Range/Units 08:53 08:53 RBC 3.99 L (4.10-5.20) X 10*6/uL MCV 98.5 H (80.0-97.0) FL MCHC 31.3 L (32.0-37.0) g/dL MPV 9.2 L (9.5-12.2) FL Lymphocytes # 0.85 L (0.90-5.00) X 10*3/uL Chloride 110 H (98-107) mmol/L Calcium 7.9 L (8.4-10.2) mg/dL Phosphorus 2.3 L (2.5-4.5) mg/dL C-Reactive Protein 1.1 H (<1.0) mg/dL Assessment and Plan Assessment: Assessment and plan * Acute small bowel obstruction * Acute kidney injury * History of hypertension * History of hypothyroid * History of chronic left bundle branch block * In regards to bowel obstruction, CT abdomen and pelvis obtained, serial abdominal exams, x-ray KUB as needed, general surgery consulted, continue patient on IV fluids>> NG post nasal gastric tube placement, on prophylactic antibiotic will be discontinued depending on clinical course * In regards to acute kidney injury, resuscitated with IV fluids, renal function resolved * In regards to hypertension, patient takes metoprolol, losartan, amiloride at home, nephrotoxic medications to be held * In regards to hypothyroid continue Synthyroid once diet advanced * CODE STATUS is full code
--- NOTE | 2023-03-14 15:09 | P.PN ---
Subjective Progress Note Date: 03/14/23 CHIEF COMPLAINT: SBO HISTORY OF PRESENT ILLNESS: Patient reports her abdominal pain has improved since the placement of the NG tube. She is having a small amount of flatus. No bowel movement. NG tube was 750 ML output throughout the day. Patient complaining of a headache and wants NG tube removed. Afebrile. WBC 6.21 Hgb 12.3 platelets 163 PHYSICAL EXAM: VITAL SIGNS: Reviewed. GENERAL: Well-developed in no acute distress. ABDOMEN: Soft. Nondistended. Mild tenderness left upper quadrant NEUROLOGIC: Alert and oriented. Cranial nerves II through XII grossly intact. ASSESSMENT: 1. Small bowel obstruction 2. History of appendectomy and hysterectomy PLAN: -Small bowel follow-through ordered for tomorrow morning -Keep patient nothing by mouth except for ice chips and popsicles -Continue NG tube for decompression Physician Interface Designer note has been reviewed by physician. Signing provider agrees with the documented findings, assessment, and plan of care. Objective - Vital Signs Vital signs: Vital Signs Temp 97.5 F L 03/14/23 11:25 Pulse 87 03/14/23 11:25 Resp 24 03/14/23 11:25 BP 128/69 03/14/23 11:25 Pulse Ox 100 03/14/23 11:25 FiO2 Intake & Output 03/13/23 03/14/23 03/14/23 18:59 06:59 18:59 Intake Total 600 Output Total 750 Balance -150 Weight 69.853 kg Intake: Intake, IV Titration 600 Amount Sodium Chloride 0.9% 1, 500 000 ml @ 100 mls/hr IV . Q10H [facility]IDEL Rx#:[id number] metroNIDAZOLE-NS PMX 500 100 mg In Saline 1 100ml.bag @ 100 mls/hr IVPB Q8HR [facility]IDEL Rx#:[id number] Output: Gastric Drainage 750 Other: # Voids 1 - Labs CBC & Chem 7: 03/14/23 08:53 03/14/23 08:53 Labs: Abnormal Lab Results - Last 24 Hours (Table) 03/14/23 03/14/23 Range/Units 08:53 08:53 RBC 3.99 L (4.10-5.20) X 10*6/uL MCV 98.5 H (80.0-97.0) FL MCHC 31.3 L (32.0-37.0) g/dL MPV 9.2 L (9.5-12.2) FL Lymphocytes # 0.85 L (0.90-5.00) X 10*3/uL Chloride 110 H (98-107) mmol/L Calcium 7.9 L (8.4-10.2) mg/dL Phosphorus 2.3 L (2.5-4.5) mg/dL
--- NOTE | 2023-03-14 17:37 | CA ---
Transthoracic Echo Report Name: Serina Fish Age: 77 Gender: F : 1945 Exam Date: 03/14/2023 13:34 Exam Location: [place] [facility] Ht (in): 59 Wt (lb): 154 Ordering Physician: Faby Garcia Attending/Referring Phys: [id number], Jose Patient Information Coordinator Melita Flores RDCS Procedure CPT: Indications: LV function Cardiac Hx: Technical Quality: Good Contrast 1: Total Dose (mL): Contrast 2: Total Dose (mL): MEASUREMENTS (Male / Female) Normal Values 2D ECHO LV Diastolic Diameter PLAX 4.5 cm 4.2 - 5.9 / 3.9 - 5.3 cm LV Systolic Diameter PLAX 3.1 cm IVS Diastolic Thickness 1.3 cm 0.6 - 1.0 / 0.6 - 0.9 cm LVPW Diastolic Thickness 1.2 cm 0.6 - 1.0 / 0.6 - 0.9 cm LV Relative Wall Thickness 0.6 RV Internal Dim ED PLAX 3.5 cm LA Systolic Diameter LX 3.8 cm 3.0 - 4.0 / 2.7 - 3.8 cm LV Diastolic Volume MOD 4C 85.5 cm??? LV Systolic Volume MOD 4C 43.3 cm??? LV Ejection Fraction MOD 4C 49.4 % LV Cardiac Index MOD 4C 2237.8 cm???/min???m??? LV Diastolic Length 4C 7.8 cm LV Systolic Length 4C 6.3 cm LV Diastolic Volume MOD 2C 69.2 cm??? LV Systolic Volume MOD 2C 24.5 cm??? LV Ejection Fraction MOD 2C 64.6 % LV Cardiac Index MOD 2C 2371.0 cm???/min???m??? LV Diastolic Length 2C 7.7 cm LV Systolic Length 2C 6.5 cm LA Volume 47.8 cm??? 18 - 58 / 22 - 52 cm??? LA Volume Index 27.5 cm???/m??? 16 - 28 cm???/m??? M-MODE Aortic Root Diameter MM 2.7 cm MV E Point Septal Separation 0.7 cm AV Cusp Separation MM 1.8 cm DOPPLER AV Peak Velocity 177.6 cm/s AV Peak Gradient 12.6 mmHg MV Area PHT 4.0 cm??? Mitral E Point Velocity 92.4 cm/s Mitral A Point Velocity 132.7 cm/s Mitral E to A Ratio 0.7 MV Deceleration Time 188.3 ms MV E' Velocity 5.6 cm/s Mitral E to MV E' Ratio 16.6 TR Peak Velocity 236.2 cm/s TR Peak Gradient 22.3 mmHg Right Ventricular Systolic Press 26.5 mmHg FINDINGS Left Ventricle Left ventricular ejection fraction is estimated at 60-65 %. left ventricular cavity size normal. Moderately increased septal wall thickness. Mildly increased posterior wall thickness. Right Ventricle Mild right ventricular dilatation. Right ventricular systolic pressure within normal limits. Right Atrium Normal right atrial size. Left Atrium Normal left atrial size. Mitral Valve Structurally normal mitral valve. No mitral stenosis, regurgitation or prolapse. Aortic Valve Trileaflet aortic valve. No aortic valve stenosis or regurgitation. Tricuspid Valve Structurally normal tricuspid valve. Pulmonic Valve Structurally normal pulmonic valve. Pericardium No pericardial effusion. Aorta Normal size aortic root and proximal ascending aorta. CONCLUSIONS Left ventricle ejection fraction greater than 60% Mild RV enlargement Prominent posterior pericardial stripe Previewed by: Dr. Juan Jose Cervantes MD (Electronically Signed) Final Date: 14 March 2023 17:37
[2023-03-14] MEDS ORDERED: KETOROLAC 15 MG/ML 1 ML VIAL IVP SCH (18:00)
[2023-03-14] MEDS: ONDANSETRON 4 MG/2 ML VIAL IVP PRN (18:12)
[2023-03-15] MEDS ORDERED: ONDANSETRON 4 MG/2 ML VIAL IVP PRN (00:05)
[2023-03-15] MEDS: SODIUM CHLORIDE 0.9% 1,000 ML IV SCH ×2 (06:06→18:03)
[2023-03-15] MEDS ORDERED: LEVOFLOXACIN 250MG-D5W PMX 250 MG in DEXTROSE/WATER 1 50ML.BAG IVPB SCH (09:00)
--- NOTE | 2023-03-15 10:15 | FL ---
EXAMINATION TYPE: FL small bowel follow through DATE OF EXAM: 03/15/2023 CLINICAL HISTORY: Possible obstruction. TECHNIQUE: A single contrast small bowel follow through is performed utilizing barium. COMPARISON: 03/13/2023 FINDINGS: Ged Preparation Teacher image of the abdomen shows no gross abnormality. Limited exam performed with Gastrog rafin to exclude obstruction. Limited view demonstrates a surgical clips in the abdomen and NG tube w ith the tip at the level of the gastric fundus. Arthropathy of the hips, symphysis pubis and degenera tive changes of the spine. There is no obvious bowel dilation. The small bowel study shows normal transit to the colon in less than 30 minutes. There is a normal mucosal fold pattern throughout the small bowel. There is no evidence of any stricture or filling de fect noted. IMPRESSION: 1. No diagnostic evidence of obstruction. Contrast passes through into the colon within 30 minutes.
[2023-03-15] MEDS: PANTOPRAZOLE 40 MG/10 ML VIAL IVP SCH ×2 (10:26→20:50)
[2023-03-15 10:48] LABS: HCT 37.5 % (37.2-46.3); HGB 11.9 g/dL (12.0-15.0); MCH 30.9 pg (27.0-32.0); MCHC 31.7 g/dL (32.0-37.0); MCV 97.4 FL (80.0-97.0); Mean Platelet Volume 9.1 FL (9.5-12.2); NRBC Per 100 WBC 0 X 10*3/uL (0.00-0.01); Platelet Count 166 X 10*3/uL (140-440); RBC 3.85 X 10*6/uL (4.10-5.20); RDW 12.7 % (11.5-14.5)
[2023-03-15 11:16] LABS: BUN/Creat Ratio 11.11 Ratio (12.00-20.00); Calcium 7.9 mg/dL (8.7-10.3); Carbon Dioxide 23.3 mmol/L (21.6-31.8); Chloride 107 mmol/L (96-109); Glucose 72 mg/dL (70-110); Potassium 4.2 mmol/L (3.5-5.5); Sodium 141 mmol/L (135-145)
--- NOTE | 2023-03-15 12:31 | P.PN ---
Subjective Progress Note Date: 03/15/23 * 77-year-old patient with past medical history significant for hypertension, hypothyroid, gastroesophageal reflux disease, previous history of thromboembolism, history of breast cancer, presented to the emergency department with complaints of acute onset abdominal pain.Patient significant surgical history includes but not limited to abdominoplasty, appendectomy, right breast lumpectomy, hysterectomy * Patient had symptom onset 1 day prior to presentation, imaging obtained showed chest x-ray which showed chronic changes atelectasis is noted * CT abdomen and pelvis was obtained which showed distended stomach with air- fluid level, dilated small bowel loops and mid abdomen, distal colon diverticula noted in segmental 3 cm duodenal diverticulum was noted * Blood work obtained in ER included CBC which were WBC 11.6 and 1114.5 platelet 219 INR of 0.9 * Serum chemistry showed sodium 139, potassium 4.4, B UN 24 creatinine 1.1 glucose 126 troponin within normal limits * Patient was treated for bowel obstruction was offered a nasogastric tube in ER she initially refused, general surgery was contacted who initially is decided to admit under the service however later on 03/13/2023 emergency team called and patient to be admitted under medicine service for general surgery on consultation * Patient was initially refusing an NG tube however later sure she agreed. 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 Patient was noted to have elevated blood pressure was 1 hydralazine after which patient had facial flushing. ALLERGY list updated likely similar to previous ALLERGIES patient agrees. Cardiology following general surgery following appreciate recommendations * 03/15/2023: Patient seen and evaluated bedside, patient has a nasogastric tube in place, cirrhosis could not sleep through the night passing gas however still complaining of nausea and abdominal distention REVIEW OF SYSTEMS: Nausea assisted, vomiting resolved, abdominal pain resolved CONSTITUTIONAL: No fever, no malaise, no fatigue. HEENT: No recent visual problems or hearing problems. Denied any sore throat. CARDIOVASCULAR: No chest pain, orthopnea, PND, no palpitations, no syncope. PULMONARY: No shortness of breath, no cough, no hemoptysis. GASTROINTESTINAL: Nausea assisted, vomiting resolved, abdominal pain resolved NEUROLOGICAL: No headaches, no weakness, no numbness. HEMATOLOGICAL: Denies any bleeding or petechiae. GENITOURINARY: Denies any burning micturition, frequency, or urgency. MUSCULOSKELETAL/RHEUMATOLOGICAL: Denies any joint pain, swelling, or any muscle pain. ENDOCRINE: Denies any polyuria or polydipsia. PHYSICAL EXAMINATION: GENERAL: The patient is alert and oriented x3, not in any acute distress. Nasogastric tube in place HEENT: Pupils are round and equally reacting to light. EOMI. CARDIOVASCULAR: S1 and S2 present. No murmurs, rubs, or gallops. PULMONARY: Chest is clear to auscultation, no wheezing or crackles. ABDOMEN: Soft, hypoactive bowel sounds nontender on palpation MUSCULOSKELETAL: No joint swelling or deformity. EXTREMITIES: No cyanosis, clubbing, or pedal edema. NEUROLOGICAL: Gross neurological examination did not reveal any focal deficits. SKIN: No rashes. Objective - Vital Signs Vital signs: Vital Signs Temp 98.5 F 03/15/23 07:06 Pulse 91 03/15/23 07:06 Resp 16 03/15/23 07:06 BP 136/72 03/15/23 07:06 Pulse Ox 92 L 03/15/23 07:06 FiO2 Intake & Output 03/14/23 03/15/23 03/15/23 18:59 06:59 18:59 Weight 69.853 kg Other: Voiding Method Toilet # Voids 2 1 # Bowel Movements 1 - Labs CBC & Chem 7: 03/15/23 07:13 03/15/23 07:13 Labs: Abnormal Lab Results - Last 24 Hours (Table) 03/15/23 03/15/23 Range/Units 07:13 07:13 RBC 3.85 L (4.10-5.20) X 10*6/uL Hgb 11.9 L (12.0-15.0) g/dL MCV 97.4 H (80.0-97.0) FL MCHC 31.7 L (32.0-37.0) g/dL MPV 9.1 L (9.5-12.2) FL BUN/Creatinine Ratio 11.11 L (12.00-20.00) Ratio Calcium 7.9 L (8.7-10.3) mg/dL Assessment and Plan Assessment: Assessment and plan * Acute small bowel obstruction * Acute kidney injury resolved * History of hypertension * History of hypothyroid * History of chronic left bundle branch block * In regards to bowel obstruction, CT abdomen and pelvis obtained, serial abdominal exams, x-ray KUB as needed, general surgery consulted, continue pat ient on IV fluids>> NG post nasal gastric tube placement, on prophylactic antibiotic discontinued depending on clinical course * In regards to acute kidney injury, resuscitated with IV fluids, renal function resolved * In regards to hypertension, patient takes metoprolol, losartan, amiloride at home, nephrotoxic medications to be held * In regards to hypothyroid continue Synthyroid once diet advanced * CODE STATUS is full code
--- NOTE | 2023-03-15 12:36 | P.PN ---
Subjective Progress Note Date: 03/15/23 CHIEF COMPLAINT: SBO HISTORY OF PRESENT ILLNESS: Patient reports she is feeling better. She did have a episode of vomiting while undergoing her small bowel follow-through. Since the small bowel follow-through she has had more bowel movements. She did have a bowel movement yesterday with the enema. Yesterday's bowel movement was hard. Overall, patient is feeling better. Afebrile. WBC 7.70 Hgb 11.9 platelets 166 sodium 141 potassium 4.2 creatinine 0.9 small bowel follow-through no diagnostic evidence of obstruction. Contrast passes through: Within 30 minutes. PHYSICAL EXAM: VITAL SIGNS: Reviewed. GENERAL: Well-developed in no acute distress. ABDOMEN: Soft. Nondistended. Mild discomfort with palpation left upper quadrant NEUROLOGIC: Alert and oriented. Cranial nerves II through XII grossly intact. ASSESSMENT: 1. Small bowel obstruction improving 2. History of appendectomy and hysterectomy PLAN: -Discontinue NG tube -Start clear liquid diet -Encourage patient to ambulate -Continue to monitor Physician Foreign Broadcast Specialist note has been reviewed by physician. Signing provider agrees with the documented findings, assessment, and plan of care. I have personally seen and examined the patient, reviewed the STATION MASTER /PAs history, exam and MDM and agree with the assessment and plan as written. Based on total visit time, I have performed more than 50% of the visit. As above: Patient doing better today. Small bowel series shows no obstruction. May remove nasogastric tube and begin liquid diet. Possible discharge tomorrow. Objective - Vital Signs Vital signs: Vital Signs Temp 98.5 F 03/15/23 07:06 Pulse 91 03/15/23 07:06 Resp 16 03/15/23 07:06 BP 136/72 03/15/23 07:06 Pulse Ox 92 L 03/15/23 07:06 FiO2 Intake & Output 03/14/23 03/15/23 03/15/23 18:59 06:59 18:59 Weight 69.853 kg Other: Voiding Method Toilet # Voids 2 1 # Bowel Movements 1 - Labs CBC & Chem 7: 03/15/23 07:13 03/15/23 07:13 Labs: Abnormal Lab Results - Last 24 Hours (Table) 03/14/23 03/14/23 03/15/23 Range/Units 08:53 08:53 07:13 RBC 3.99 L 3.85 L (4.10-5.20) X 10*6/uL Hgb 11.9 L (12.0-15.0) g/dL MCV 98.5 H 97.4 H (80.0-97.0) FL MCHC 31.3 L 31.7 L (32.0-37.0) g/dL MPV 9.2 L 9.1 L (9.5-12.2) FL Lymphocytes # 0.85 L (0.90-5.00) X 10*3/uL Chloride 110 H (98-107) mmol/L BUN/Creatinine Ratio (12.00-20.00) Ratio Calcium 7.9 L (8.4-10.2) mg/dL Phosphorus 2.3 L (2.5-4.5) mg/dL C-Reactive Protein 1.1 H (<1.0) mg/dL 03/15/23 Range/Units 07:13 RBC (4.10-5.20) X 10*6/uL Hgb (12.0-15.0) g/dL MCV (80.0-97.0) FL MCHC (32.0-37.0) g/dL MPV (9.5-12.2) FL Lymphocytes # (0.90-5.00) X 10*3/uL Chloride (98-107) mmol/L BUN/Creatinine Ratio 11.11 L (12.00-20.00) Ratio Calcium 7.9 L (8.4-10.2) mg/dL Phosphorus (2.5-4.5) mg/dL C-Reactive Protein (<1.0) mg/dL
[2023-03-15] MEDS ORDERED: diphenhydrAMINE 50 MG/ML 1 ML VIAL IVP PRN (12:51)
[2023-03-15] MEDS: GABAPENTIN 300 MG CAP PO SCH ×2 (15:00→20:50)
[2023-03-15] MEDS: MAGNESIUM SULFATE-D5W PMX 1 GM in DEXTROSE/WATER 1 100ML.BAG IVPB SCH ×2 (15:00→18:02)
[2023-03-15] MEDS: METOPROLOL SUCCINATE (ER) 25 MG TAB.ER.24H PO SCH (15:00)
[2023-03-15] MEDS: metroNIDAZOLE-NS PMX 500 MG in SALINE 1 100ML.BAG IVPB SCH (15:13)
[2023-03-15] MEDS: PANTOPRAZOLE 40 MG/10 ML VIAL IV SCH (15:13)
[2023-03-15] MEDS: POTASSIUM PHOSPHATE 10 MMOL in SODIUM CHLORIDE 0.9% 250 ML IV ONE ×2 (17:18→20:14)
[2023-03-16] MEDS: SODIUM CHLORIDE 0.9% 1,000 ML IV SCH (09:08)
[2023-03-16] MEDS: GABAPENTIN 300 MG CAP PO SCH (09:11)
[2023-03-16] MEDS: METOPROLOL SUCCINATE (ER) 25 MG TAB.ER.24H PO SCH (09:11)
[2023-03-16] MEDS: PANTOPRAZOLE 40 MG/10 ML VIAL IVP SCH (09:11)
--- NOTE | 2023-03-16 09:40 | XR ---
EXAMINATION TYPE: XR KUB portable DATE OF EXAM: 03/16/2023 COMPARISON: 03/15/2023 HISTORY: Pain TECHNIQUE: One view abdominal series FINDINGS: The osseous structures are intact. The bowel gas pattern is nonspecific. Contrast is seen within por tions of the colon. Degenerative change of the symphysis pubis and bilateral hip arthropathy. Degener ative changes of the spine with surgical clips. NG tube no longer seen. IMPRESSION: 1. Contrast noted within the colon. No diagnostic evidence of obstruction.
--- NOTE | 2023-03-16 10:57 | P.PN ---
Subjective Progress Note Date: 03/16/23 CHIEF COMPLAINT: SBO HISTORY OF PRESENT ILLNESS: Patient reports that she is better. She is tolerating liquids. Denies any nausea or vomiting. She is having bowel movements and flatus. She feels that her abdomen is less bloated. She denies any pain. KUB x-ray from this morning contrast noted within the colon. No diagnostic evidence of obstruction. Afebrile. WBC 7.70 Hgb 11.9 platelets 166 PHYSICAL EXAM: VITAL SIGNS: Reviewed. GENERAL: Well-developed in no acute distress. ABDOMEN: Soft. mildly distended. minimal discomfort with palpation left upper quadrant NEUROLOGIC: Alert and oriented. Cranial nerves II through XII grossly intact. ASSESSMENT: 1. Small bowel obstruction resolved 2. History of appendectomy and hysterectomy PLAN: -Advance diet to full liquids -Patient can be discharged if she tolerates the full liquids -Continue to ambulate Physician Curriculum Developer note has been reviewed by physician. Signing provider agrees with the documented findings, assessment, and plan of care. Patient doing well today. May discharge. Objective - Vital Signs Vital signs: Vital Signs Temp 98.0 F 03/16/23 07:17 Pulse 74 03/16/23 07:17 Resp 19 03/16/23 07:17 BP 144/70 03/16/23 07:17 Pulse Ox 95 03/16/23 09:36 FiO2 Intake & Output 03/15/23 03/16/23 03/16/23 18:59 06:59 18:59 Intake Total 440 Balance 440 Intake: Oral 440 Other: Voiding Method Toilet Toilet # Voids 2 2 # Bowel Movements 4 - Labs CBC & Chem 7: 03/15/23 07:13 03/15/23 07:13 Labs: Abnormal Lab Results - Last 24 Hours (Table) 03/15/23 Range/Units 07:13 BUN/Creatinine Ratio 11.11 L (12.00-20.00) Ratio Calcium 7.9 L (8.7-10.3) mg/dL
--- NOTE | 2023-03-16 12:12 | P.PN ---
Subjective Progress Note Date: 03/16/23 * 77-year-old patient with past medical history significant for hypertension, hypothyroid, gastroesophageal reflux disease, previous history of thromboembolism, history of breast cancer, presented to the emergency department with complaints of acute onset abdominal pain.Patient significant surgical history includes but not limited to abdominoplasty, appendectomy, right breast lumpectomy, hysterectomy * Patient had symptom onset 1 day prior to presentation, imaging obtained showed chest x-ray which showed chronic changes atelectasis is noted * CT abdomen and pelvis was obtained which showed distended stomach with air- fluid level, dilated small bowel loops and mid abdomen, distal colon diverticula noted in segmental 3 cm duodenal diverticulum was noted * Blood work obtained in ER included CBC which were WBC 11.6 and 1114.5 platelet 219 INR of 0.9 * Serum chemistry showed sodium 139, potassium 4.4, B UN 24 creatinine 1.1 glucose 126 troponin within normal limits * Patient was treated for bowel obstruction was offered a nasogastric tube in ER she initially refused, general surgery was contacted who initially is decided to admit under the service however later on 03/13/2023 emergency team called and patient to be admitted under medicine service for general surgery on consultation * Patient was initially refusing an NG tube however later sure she agreed. 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 Patient was noted to have elevated blood pressure was 1 hydralazine after which patient had facial flushing. ALLERGY list updated likely similar to previous ALLERGIES patient agrees. Cardiology following general surgery following appreciate recommendations * 03/15/2023: Patient seen and evaluated bedside, patient has a nasogastric tube in place, cirrhosis could not sleep through the night passing gas however still complaining of nausea and abdominal distention * 03/16/2023: Patient seen and evaluated and bedside, on evaluation patient is alert, nasogastric tube was removed, diet advanced, x-ray KUB shows no diagnostic evidence of obstruction REVIEW OF SYSTEMS: Nausea assisted, vomiting resolved, abdominal pain resolved CONSTITUTIONAL: No fever, no malaise, no fatigue. HEENT: No recent visual problems or hearing problems. Denied any sore throat. CARDIOVASCULAR: No chest pain, orthopnea, PND, no palpitations, no syncope. PULMONARY: No shortness of breath, no cough, no hemoptysis. GASTROINTESTINAL: Nausea assisted, vomiting resolved, abdominal pain resolved NEUROLOGICAL: No headaches, no weakness, no numbness. HEMATOLOGICAL: Denies any bleeding or petechiae. GENITOURINARY: Denies any burning micturition, frequency, or urgency. MUSCULOSKELETAL/RHEUMATOLOGICAL: Denies any joint pain, swelling, or any muscle pain. ENDOCRINE: Denies any polyuria or polydipsia. PHYSICAL EXAMINATION: GENERAL: The patient is alert and oriented x3, not in any acute distress. Nasogastric tube removed HEENT: Pupils are round and equally reacting to light. EOMI. CARDIOVASCULAR: S1 and S2 present. No murmurs, rubs, or gallops. PULMONARY: Chest is clear to auscultation, no wheezing or crackles. ABDOMEN: Soft, hypoactive bowel sounds nontender on palpation MUSCULOSKELETAL: No joint swelling or deformity. EXTREMITIES: No cyanosis, clubbing, or pedal edema. NEUROLOGICAL: Gross neurological examination did not reveal any focal deficits. SKIN: No rashes. Objective - Vital Signs Vital signs: Vital Signs Temp 98.0 F 03/16/23 07:17 Pulse 74 03/16/23 07:17 Resp 19 03/16/23 07:17 BP 144/70 03/16/23 07:17 Pulse Ox 95 03/16/23 09:36 FiO2 Intake & Output 03/15/23 03/16/23 03/16/23 18:59 06:59 18:59 Intake Total 440 Balance 440 Intake: Oral 440 Other: Voiding Method Toilet Toilet # Voids 2 2 # Bowel Movements 4 - Labs CBC & Chem 7: 03/15/23 07:13 03/15/23 07:13 Assessment and Plan Assessment: Assessment and plan * Acute small bowel obstruction * Acute kidney injury resolved * History of hypertension * History of hypothyroid * History of chronic left bundle branch block * In regards to bowel obstruction, CT abdomen and pelvis obtained, serial abdominal exams, x-ray KUB shows resolution of obstruction, general surgery consulted, continue patient on IV fluids>> status post removal of nasogastric tube, on prophylactic antibiotic discontinued depending on clinical course * In regards to acute kidney injury, resuscitated with IV fluids, renal function resolved * In regards to hypertension, patient takes metoprolol, losartan, amiloride at home, nephrotoxic medications to be held * In regards to hypothyroid continue Synthyroid once diet advanced * CODE STATUS is full code
[2023-03-16 14:35] VITALS: BP 136/72; PULSE 68; RESP 18; TEMP 97.9
--- NOTE | 2023-03-16 15:07 | P.DS ---
Providers Date of admission: 03/13/23 04:02 Expected date of discharge: 03/16/23 Attending physician: Rosalina Zhang Consults: 03/14/23 08:56 Consult Physician Routine Consulting Provider: Broderick Sharp Reason/Comments: SBO Do you want consulting provider notified?: Already Contacted Primary care physician: Mariajose [facility] Course: 77-year-old patient with past medical history significant for hypertension, hypothyroid, gastroesophageal reflux disease, previous history of thromboembolism, history of breast cancer, presented to the emergency department with complaints of acute onset abdominal pain.Patient significant surgical history includes but not limited to abdominoplasty, appendectomy, right breast lumpectomy, hysterectomy * Patient had symptom onset 1 day prior to presentation, imaging obtained showed chest x-ray which showed chronic changes atelectasis is noted * CT abdomen and pelvis was obtained which showed distended stomach with air- fluid level, dilated small bowel loops and mid abdomen, distal colon diverticula noted in segmental 3 cm duodenal diverticulum was noted * Blood work obtained in ER included CBC which were WBC 11.6 and 1114.5 platelet 219 INR of 0.9 * Serum chemistry showed sodium 139, potassium 4.4, B UN 24 creatinine 1.1 glucose 126 troponin within normal limits * Patient was treated for bowel obstruction was offered a nasogastric tube in ER she initially refused, general surgery was contacted who initially is decided to admit under the service however later on 03/13/2023 emergency team called and patient to be admitted under medicine service for general surgery on consultation * Patient was initially refusing an NG tube however later sure she agreed. 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 Patient was noted to have elevated blood pressure was 1 hydralazine after which patient had facial flushing. ALLERGY list updated likely similar to previous ALLERGIES patient agrees. Cardiology following general surgery following appreciate recommendations * 03/15/2023: Patient seen and evaluated bedside, patient has a nasogastric tube in place, cirrhosis could not sleep through the night passing gas however still complaining of nausea and abdominal distention * 03/16/2023: Patient seen and evaluated and bedside, on evaluation patient is alert, nasogastric tube was removed, diet advanced, x-ray KUB shows no diagnostic evidence of obstruction. Patient was able to tolerate diet hence discharged home REVIEW OF SYSTEMS: Nausea assisted, vomiting resolved, abdominal pain resolved CONSTITUTIONAL: No fever, no malaise, no fatigue. HEENT: No recent visual problems or hearing problems. Denied any sore throat. CARDIOVASCULAR: No chest pain, orthopnea, PND, no palpitations, no syncope. PULMONARY: No shortness of breath, no cough, no hemoptysis. GASTROINTESTINAL: Nausea assisted, vomiting resolved, abdominal pain resolved NEUROLOGICAL: No headaches, no weakness, no numbness. HEMATOLOGICAL: Denies any bleeding or petechiae. GENITOURINARY: Denies any burning micturition, frequency, or urgency. MUSCULOSKELETAL/RHEUMATOLOGICAL: Denies any joint pain, swelling, or any muscle pain. ENDOCRINE: Denies any polyuria or polydipsia. PHYSICAL EXAMINATION: GENERAL: The patient is alert and oriented x3, not in any acute distress. Nasogastric tube removed HEENT: Pupils are round and equally reacting to light. EOMI. CARDIOVASCULAR: S1 and S2 present. No murmurs, rubs, or gallops. PULMONARY: Chest is clear to auscultation, no wheezing or crackles. ABDOMEN: Soft, bowel sounds normal nontender on palpation MUSCULOSKELETAL: No joint swelling or deformity. EXTREMITIES: No cyanosis, clubbing, or pedal edema. NEUROLOGICAL: Gross neurological examination did not reveal any focal deficits. SKIN: No rashes. Assessment: Assessment and plan * Acute small bowel obstruction RESOLVED * Acute kidney injury resolved * History of hypertension * History of hypothyroid * History of chronic left bundle branch block * In regards to bowel obstruction, CT abdomen and pelvis obtained, serial abdominal exams, x-ray KUB shows resolution of obstruction, general surgery consulted, continue patient on IV fluids>> status post removal of nasogastric tube, on prophylactic antibiotic discontinued depending on clinical course * In regards to acute kidney injury, resuscitated with IV fluids, renal function resolved * In regards to hypertension, patient takes metoprolol, losartan, amiloride resumed * In regards to hypothyroid continue Synthyroid Patient Condition at Discharge: Good Plan - Discharge Summary Discharge Rx Participant: Yes New Discharge Prescriptions: New Ondansetron Odt [Zofran Odt] 4 mg PO Q8HR PRN 3 Days #9 tab PRN Reason: Nausea Continue Metoprolol Succinate (ER) [Toprol XL] 25 mg PO DAILY Gabapentin 300 mg PO BID Losartan Potassium [Cozaar] 12.5 mg PO DAILY L.acidoph,Paracasei, B.lactis [Probiotic] 1 cap PO DAILY aMILoride HCL 5 mg PO DAILY RABEprazole SODIUM [Aciphex] 20 mg PO DAILY Ankit/D3/Mag11/Zinc/Chief Accounting Officer/Bobby/Bor [Caltrate 600+D Plus Tablet] 1 tab PO HS Cholecalciferol [Vitamin D3 (25 Mcg = 1000 Iu)] 25 mcg PO DAILY Lysine [l-Lysine] 600 mg PO DAILY Phentermine HCl [Adipex-P] 37.5 mg PO DAILY Propylene Glycol [Systane Complete] 1 - 2 drop BOTH EYES QID PRN PRN Reason: Dry Eye(S) Magnesium Chloride [Slow-Mag] 128 mg PO BID Alirocumab [Praluent Pen] 150 injection SQ Q14D Mirabegron [Myrbetriq] 50 mg PO HS Discharge Medication List Metoprolol Succinate (ER) [Toprol XL] 25 mg PO DAILY 03/14/20 [History] Gabapentin 300 mg PO BID 10/09/20 [History] L.acidoph,Paracasei, B.lactis [Probiotic] 1 cap PO DAILY 05/12/21 [History] Losartan Potassium [Cozaar] 12.5 mg PO DAILY 05/12/21 [History] Magnesium Chloride [Slow-Mag] 128 mg PO BID 05/12/21 [History] RABEprazole SODIUM [Aciphex] 20 mg PO DAILY 07/20/21 [History] aMILoride HCL 5 mg PO DAILY 07/20/21 [History] Alirocumab [Praluent Pen] 150 injection SQ Q14D 07/21/21 [History] Ankit/D3/Mag11/Zinc/Chief Accounting Officer/Bobby/Bor [Caltrate 600+D Plus Tablet] 1 tab PO HS 03/13/23 [History] Cholecalciferol [Vitamin D3 (25 Mcg = 1000 Iu)] 25 mcg PO DAILY 03/13/23 [History] Lysine [l-Lysine] 600 mg PO DAILY 03/13/23 [History] Mirabegron [Myrbetriq] 50 mg PO HS 03/13/23 [History] Phentermine HCl [Adipex-P] 37.5 mg PO DAILY 03/13/23 [History] Propylene Glycol [Systane Complete] 1 - 2 drop BOTH EYES QID PRN 03/13/23 [History] Ondansetron Odt [Zofran Odt] 4 mg PO Q8HR PRN 3 Days #9 tab 03/16/23 [Rx] Follow up Appointment(s)/Referral(s): None,Stated [REFERRING] - 1-2 days Discharge Disposition: HOME SELF-CARE
[2023-03-16] MEDS: fentaNYL (PF) 50 MCG/ML 2 ML AMP IVP PRN (22:30)
== END 2023-03-16 15:42 | disposition home or self-care (01) | DRG 389 ==
LOC: EC 00:46 → 4SSUR 04:01 → OBSVTOIN 04:02 → 4SSUR 11:22
PROVIDERS: ADMIT Hospitalist; ATTEND Hospitalist
DX: K56.609 Unspecified intestinal obstruction, unspecified as to partial versus complete obstruction (principal); N17.9 Acute kidney failure, unspecified; K21.9 Gastro-esophageal reflux disease without esophagitis; E78.5 Hyperlipidemia, unspecified; M19.90 Unspecified osteoarthritis, unspecified site; E03.9 Hypothyroidism, unspecified; I44.7 Left bundle-branch block, unspecified; I10 Essential (primary) hypertension; Z11.52 Encounter for screening for COVID-19; Z88.1 Allergy status to other antibiotic agents; Z88.5 Allergy status to narcotic agent; Z88.6 Allergy status to analgesic agent; Z88.2 Allergy status to sulfonamides; Z86.718 Personal history of other venous thrombosis and embolism; Z86.711 Personal history of pulmonary embolism; Z86.16 Personal history of COVID-19; Z85.3 Personal history of malignant neoplasm of breast; Z79.899 Other long term (current) drug therapy; Z87.01 Personal history of pneumonia (recurrent)
CPT/HCPCS: 36415; 71046; 74018; 74177; 74250; 80048; 80053; 81001; 82150; 83605; 83690; 83735; 84100; 84145; 84484; 85025; 85027; 85610; 85730; 86140; 87636; 93005; 93306; 94760; 96361; 96365; 96366; 96367; 96375; 96376; 99285

== ENCOUNTER → 2023-04-07 | Outpatient (CLI) | payer MEDICARE, OTHER ==
--- NOTE | 2023-04-07 15:06 | CTL ---
EXAMINATION TYPE: CT Low Dose Lung DATE OF EXAM ORDERED: 04/07/2023 HISTORY: Z87.891 PERSONAL HISTORY OF NICOTINE DEPENDENCE . 30 pack-year history, former smoker, Lung cancer screening CT DLP: 100.[address] CTDI: 2.6 mGy Automated exposure control for dose reduction was used. SCREENING VISIT: First screening visit COMPARISON: CT 09/18/2022, CT chest abdomen pelvis 09/24/2021 TECHNIQUE: Low dose computed tomography scan was performed through the chest at 1 mm thick sections a nd reconstructed images in multiple planes at 1 mm and [address] DIAGNOSTIC QUALITY: Satisfactory FINDINGS: LUNG NODULES: Irregular pulmonary nodule involving the posterior aspect of the superior segment of th e right lower lobe measuring up to 1.4 cm (series 6, image 37). LUNGS: COPD: Severity: None Fibrosis: Severity: None Lymph nodes: None Other findings: None RIGHT PLEURAL SPACE: Effusion: None Calcification: None Thickening: Similar fatty pleural infiltration along the posterior right rib cage (series 6, image 28 ), possible lipoma. Right posterior fat-containing diaphragmatic hernia redemonstrated. Pneumothorax: None LEFT PLEURAL SPACE: Effusion: None Calcification: None Thickening: None Pneumothorax: None HEART: Heart Size: Normal Coronary Calcification: None Pericardial Effusion: None OTHER FINDINGS: Upper abdomen: Postsurgical changes from left nephrectomy. Bony thorax: None Supraclavicular region: None Other: Left chest wall Mediport catheter with distal tip terminating at the superior cavoatrial junct ion. Posttreatment changes within the right breast redemonstrated. IMPRESSION: Irregular pulmonary nodule involving the posterior aspect of the superior segment of the right lower lobe measuring up to 1.[address] LUNG RAD AND CT CHEST RECOMMENDATION: Lung-Rad 4X Very Suspicious: Follow-up PET/CT and/or tissue sampling. PET/CT may be used when there is a > 8 mm solid component. S Modifier (other clinically significant findings): None
== END | disposition home or self-care (01) ==
LOC: RADCTMAIN 13:28
PROVIDERS: ATTEND Family Medicine
DX: Z12.2 Encounter for screening for malignant neoplasm of respiratory organs (principal); Z87.891 Personal history of nicotine dependence; R91.1 Solitary pulmonary nodule
CPT/HCPCS: 71271

== ENCOUNTER → 2023-04-28 | Outpatient (CLI) | payer MEDICARE, OTHER ==
--- NOTE | 2023-05-02 11:59 | PE ---
EXAMINATION TYPE: PET CT fusion skull to thigh DATE OF EXAM: 04/28/2023 CLINICAL INDICATION:Female, 77 years old with history of R91.1 LUNG NODULE; TECHNIQUE: Following the intravenous administration of 9.17 mCi of F-18 FDG, whole body images are performed from the skull base to the midthigh. Images are reviewed on the computer in the coronal, a xial, and sagittal planes. Reconstructed rotating images are created on independent workstation and reviewed on the computer. A non-contrast CT is performed in conjunction with the PET scan. Glucose level 82 mg/dL CT DLP: 414 mGycm, Automated exposure control for dose reduction was used. COMPARISON: CT 04/07/2023, PET/CT None, FINDINGS: Mediastinal SUV mean is 2.1. Hepatic parenchyma SUV mean is 2.8 . SKULL BASE AND NECK: No suspicious radiotracer activity. CHEST, MEDIASTINUM, AND HILAR REGION: Right upper lung pulmonary nodule Max SUV 8.7 measuring up to 17 x 10 mm. ABDOMEN AND PELVIS: Mild uptake within the left adrenal gland max SUV 3.2. MUSCULOSKELETAL STRUCTURES: No suspicious radiotracer activity. OTHER CT: Atherosclerosis of the arterial vasculature. Left chest wall [id number] tip terminating superior vena cava. Right breast surgical clips in soft tissue density without increased metabolic ac tivity. Surgical clips in the retroperitoneum on the left. The left kidney is absent. Scattered colon ic diverticula. Fat-containing umbilical hernia. IMPRESSION: 1. Right upper lung pulmonary nodule with increased metabolic activity compatible with malignancy. N o evidence for abnormal mediastinal lymph nodes with increased size and/or FDG activity. 2. Post nephrectomy without evidence for abnormal FDG activity or soft tissue in the surgical bed. 3. Mild presumably physiologic uptake within the left adrenal gland. Attention on follow-up imaging.
== END | disposition home or self-care (01) ==
LOC: RADPETMAIN 13:55
PROVIDERS: ATTEND Internal Medicine Critical Care Medicine
DX: R91.1 Solitary pulmonary nodule (principal); Z90.5 Acquired absence of kidney
CPT/HCPCS: 78815; A9552

== ENCOUNTER → 2023-08-01 | Outpatient (CLI) | payer MEDICARE, OTHER ==
--- NOTE | 2023-08-01 20:07 | US ---
EXAMINATION TYPE: US gallbladder DATE OF EXAM: 08/01/2023 COMPARISON: Renal ultrasound 03/11/2023, CT abdomen and pelvis 03/13/2023 CLINICAL INDICATION: Female, 77 years old with history of R22.41 LOCALIZED SWELLING MASS; pain RUQ pa in TECHNIQUE: Multiple sonographic images of the right upper quadrant are obtained. FINDINGS: EXAM MEASUREMENTS: Liver Length: 12.6 cm Gallbladder Wall: .2 cm CBD: .3 cm Right Kidney: 9.6 x 5.3 x 5.5 cm RESIN COATER NOTES: Pancreas: Obscured by bowel gas Liver: wnl Gallbladder: Limited due to bowel gas Evidence for sonographic Pollard's sign: no CBD: appears wnl Right Kidney: No hydronephrosis or masses seen The pancreas is obscured by overlying bowel gas. Liver is unremarkable without focal lesion. Noncirrh otic morphology. The gallbladder is underdistended and partially obscure by overlying bowel gas. No v isualized gallstones, wall thickening, or surrounding fluid. Negative sonographic Pollard's sign. The visualized common bile duct is within normal limits. Right kidney is unremarkable without hydronephro sis or solid mass identified. No nephrolithiasis. IMPRESSION: No ultrasound evidence for an acute process.
== END | disposition home or self-care (01) ==
LOC: RADUSWWP 06:48
PROVIDERS: ATTEND Surgery
DX: R22.41 Localized swelling, mass and lump, right lower limb (principal)
CPT/HCPCS: 76705

== ENCOUNTER → 2023-08-15 | Outpatient (CLI) | payer MEDICARE, OTHER ==
--- NOTE | 2023-08-15 08:15 | MM ---
Reason for Exam: Follow-up at short interval from prior study. Last mammogram was performed 1 year(s) and 2 month(s) ago. Patient History: Menarche at age 11. First Full-Term at age 24. Left ovary removed at age 51. Right ovary removed at age 51. Hysterectomy at age 51. Postmenopausal. Patient has history of breast feeding. Breast cancer, right, age 74. Previous chest radiation therapy at age 74. Previous chemotherapy at age 74. Estrogen for 7 years until age 73. 2015, Bilateral Reduction. 10/13/2020, Lumpectomy on the Right side. 10/13/2020, Malignant Core Biopsy on the right side. 02/18/2020, Malignant Core Biopsy on the right side. 02/2020, Chemotherapy. 11/2020, Radiation Therapy. Maternal aunt had breast cancer. Tissue Density: The breasts are heterogeneously dense, which may obscure small masses. Findings: Analyzed By CAD. Abdomen is stable. Postsurgical clips from prior lumpectomy on the right. Scattered benign-appearing calcifications are present. Palpable marker is utilized upper outer posterior left breast. No mammographic abnormality is evident. Additional workup with ultrasound is recommended. Overall Assessment: Incomplete: need additional imaging evaluation, BI-RAD 0 Management: Diagnostic Breast Ultrasound of the left breast. A negative mammogram report should not preclude additional follow up of suspicious palpable abnormalities. Patient should continue monthly self breast exam. A clinical breast exam by your physician is recommended on an annual basis and results should be correlated with mammographic findings. Note on Lindsey scores and lifetime risk: 1. A Lindsey score greater than 3% is considered moderate risk. If this is the case, consider specialist referral to assess eligibility for a risk reducing agent. 2. If overall lifetime risk for the development of breast cancer is 20% or higher, the patient may qualify for future screening with alternating mammogram and breast MRI. Electronically signed and approved by: Jonel Nelson D.O. Radiologis
== END | disposition home or self-care (01) ==
LOC: RADMAMWWP 07:40
PROVIDERS: ATTEND Surgery
DX: R92.333 Mammographic heterogeneous density, bilateral breasts (principal); R92.8 Other abnormal and inconclusive findings on diagnostic imaging of breast; Z85.3 Personal history of malignant neoplasm of breast; Z78.0 Asymptomatic menopausal state; Z80.3 Family history of malignant neoplasm of breast
CPT/HCPCS: 77062; 77066

== ENCOUNTER → 2023-08-15 | Outpatient (CLI) | payer MEDICARE, OTHER ==
--- NOTE | 2023-08-15 08:34 | USB ---
Reason for Exam: Follow-up at short interval from prior study. Patient History: Menarche at age 11. First Full-Term at age 24. Left ovary removed at age 51. Right ovary removed at age 51. Hysterectomy at age 51. Postmenopausal. Patient has history of breast feeding. Breast cancer, right, age 74. Previous chest radiation therapy at age 74. Previous chemotherapy at age 74. Estrogen for 7 years until age 73. 2015, Bilateral Reduction. 10/13/2020, Lumpectomy on the Right side. 10/13/2020, Malignant Core Biopsy on the right side. 02/18/2020, Malignant Core Biopsy on the right side. 02/2020, Chemotherapy. 11/2020, Radiation Therapy. Maternal aunt had breast cancer. Technique: Method: Targeted. Prior Study Comparison: 06/08/2021 Bilateral Diagnostic Mammogram, [facility]. 06/09/2022 Bilateral MG 3D diag mammo w/cad ANIKA, [facility]. 02/10/2023 Left MG 3D diag mammo w/cad LT, [facility]. Findings: The upper outer quadrant of the left breast, the axilla of the left breast and the retroareolar of the left breast were scanned. At the palpable region 3:00 position 10 cm nipple no discrete cystic or solid lesion evident. The calcification at the 2:00 position 4 cm from the nipple as readily apparent as a shadowing echogenic area. Remaining portions of the visualized limits breast are unremarkable. Overall Assessment: Benign, BI-RAD 2 Management: Screening Mammogram of both breasts in 1 year. A clinical breast exam by your physician is recommended on an annual basis and results should be correlated with mammographic findings. This exam should not preclude additional follow-up of suspicious palpable abnormalities. Results were given to the patient verbally at the time of exam. Electronically signed and approved by: Jonel Nelson D.O. Radiologis
== END | disposition home or self-care (01) ==
LOC: RADUSWWP 07:43
PROVIDERS: ATTEND Surgery
DX: R92.8 Other abnormal and inconclusive findings on diagnostic imaging of breast (principal); C50.911 Malignant neoplasm of unspecified site of right female breast; C50.912 Malignant neoplasm of unspecified site of left female breast

== ENCOUNTER → 2023-09-21 | Outpatient (CLI) | payer MEDICARE, OTHER ==
[2023-09-21 14:36] VITALS: BP 133/84; PULSE 69; RESP 18; TEMP 97.7
--- NOTE | 2023-09-21 15:23 | P.PROGSL ---
Subjective DATE: 09/21/2023 FOLLOW UP VISIT. Patient with obstructive sleep apnea hypopnea syndrome return to sleep center for follow-up visit. Information from previous visit have been reviewed. Patient is using PAP equipment every night for the whole night, getting PAP supplies in time. The patient does not have significant problems with PAP unit and humidification. Patient has difficulties to use CPAP mask because she is losing her hair with the usage of the mask. [place] sleepiness scale is 8, which is normal. I checked information from PAP unit. PAP unit pressure 5-18, average 11.6 cm H2O. Usage is 70% for more then 4 hours per night. Leak is 16 l/m, which is in acceptable range. Apnea Hypopnea Index is 1.8, which is normal. MEDICATIONS have been reviewed, please see below. During physical exam: GENERAL: A pleasant patient without any distress. VITAL SIGNS: Please see below, weight is 160.2 lbs. HEENT: PERRLA, EOMI.low position of soft palate, Mallapati 3 . NECK: Supple. No JVD. LUNGS: Clear to percussion and to auscultation. Good air exchange. No wheezing or rhonchi. HEART: S1, S2 regular. ABDOMEN: Soft and nontender.[] EXTREMITIES: No clubbing or cyanosis. SENIOR ERP CONSULTANT: Awake, alert, and oriented x3. No focal deficit. Impressions: 1. Obstructive sleep apnea-hypopnea syndrome. Patient demonstrated borderline compliance with treatment, benefiting from treatment. 2. Hypertension. 3. Hypothyroidism. 4. History of right breast cancer, status postlumpectomy, radiation therapy and chemotherapy. 5. Status post hysterectomy. 6. Status post left nephrectomy for kidney donation. 7. Status post right-sided surgery for rotator cuff problems. 8. History of low back problems. 9. History of neck pain. Plan: 1. Continue using PAP equipment every night for the whole night. 2. Sleep hygiene with regular time in bed for at least 7.5-8 hours 3. Patient will start to use Cruz FX Sunita mask which goes around the ears and subsequently will not disturb her hairs 4. Advised patient to remove all remaining water from humidifier canister daily and make it dry after each usage. Refill canister with fresh distilled water before each usage. 5. Watching weight. 6. Precautions related to driving. No driving if feel any sleepiness. 7. I will maintain prescription for PAP supplies including mask, tube, filters. 8. Follow up visit in 6 months or earlier if patient has any problems. Thank you very much for allowing me to participate in the management of your patient. Wan Almaguer MD, PhD, FAASM. Diplomat of [place] [employer], Sleep Medicine Board by [employer] [employer] Continuous Linter Drier Operator of [facility] [place] Objective - Vital Signs Vital Signs: Vital Signs Temp 97.7 F 09/21/23 14:35 Pulse 69 09/21/23 14:35 Resp 18 09/21/23 14:35 BP 133/84 09/21/23 14:35 Pulse Ox 96 09/21/23 14:35 FiO2 Intake & Output 09/20/23 09/21/23 09/21/23 18:59 06:59 18:59 Weight 72.631 kg Home Medications: Home Medications Medication Instructions Recorded Confirmed Type Metoprolol Succinate (ER) [Toprol 25 mg PO DAILY 03/14/20 09/21/23 History XL] Gabapentin 300 mg PO TID 10/09/20 09/21/23 History L.acidoph,Paracasei, B.lactis 1 cap PO DAILY 05/12/21 09/09/23 History [Probiotic] Losartan Potassium [Cozaar] 12.5 mg PO DAILY 05/12/21 09/21/23 History Magnesium Chloride [Slow-Mag] 128 mg PO BID 05/12/21 09/09/23 History RABEprazole SODIUM [Aciphex] 20 mg PO DAILY 07/20/21 09/21/23 History aMILoride HCL 5 mg PO DAILY 07/20/21 09/21/23 History Alirocumab [Praluent Pen] 150 injection SQ Q14D 07/21/21 09/09/23 History Ankit/D3/Mag11/Zinc/Varnish Melter Helper/Bobby/Bor 1 tab PO HS 03/13/23 09/09/23 History [Caltrate 600+D Plus Tablet] Cholecalciferol [Vitamin D3 (25 25 mcg PO DAILY 03/13/23 09/09/23 History Mcg = 1000 Iu)] Lysine [l-Lysine] 500 mg PO DAILY 03/13/23 09/21/23 History Mirabegron [Myrbetriq] 50 mg PO HS 03/13/23 09/09/23 History Phentermine HCl [Adipex-P] 37.5 mg PO DAILY 03/13/23 09/09/23 History Propylene Glycol [Systane Complete] 1 - 2 drop BOTH EYES QID PRN 03/13/23 09/09/23 History Ondansetron Odt [Zofran Odt] 4 mg PO Q8HR PRN 3 Days #9 tab 03/16/23 09/09/23 Rx Calcium Carbonate [Calcium] 400 mg PO DAILY 09/21/23 09/21/23 History
== END ==
LOC: 3 N SLEEP 14:06
PROVIDERS: ATTEND Internal Medicine
DX: G47.33 Obstructive sleep apnea (adult) (pediatric) (principal); I10 Essential (primary) hypertension; E03.9 Hypothyroidism, unspecified; Z85.3 Personal history of malignant neoplasm of breast; Z92.3 Personal history of irradiation; Z92.21 Personal history of antineoplastic chemotherapy; Z90.710 Acquired absence of both cervix and uterus; Z90.5 Acquired absence of kidney; Z98.890 Other specified postprocedural states; Z87.39 Personal history of other diseases of the musculoskeletal system and connective tissue; Z99.89 Dependence on other enabling machines and devices; Z79.899 Other long term (current) drug therapy; Z88.1 Allergy status to other antibiotic agents; Z88.5 Allergy status to narcotic agent; Z88.8 Allergy status to other drugs, medicaments and biological substances; Z88.2 Allergy status to sulfonamides; Z91.018 Allergy to other foods; Z91.048 Other nonmedicinal substance allergy status; Z87.891 Personal history of nicotine dependence
CPT/HCPCS: 99212

== ENCOUNTER → 2023-09-29 | Outpatient (CLI) | payer MEDICARE, OTHER ==
[2023-09-29 16:35] LABS: ALT 28 U/L (8-44); AST 29 U/L (13-35); Albumin 4.2 g/dL (3.8-4.9); Alkaline Phosphatase 123 U/L (41-126); Blood Urea Nitrogen 17.5 mg/dL (9.0-27.0); Calcium 9.8 mg/dL (8.7-10.3); Carbon Dioxide 26.6 mmol/L (21.6-31.8); Chloride 108 mmol/L (96-109); Chol/HDL Ratio 2.25 Ratio; Globulin 2.1 g/dL (1.6-3.3); Glucose 102 mg/dL (70-110); LDL Cholesterol,Calculated 68.8 mg/dL (0.0-131.0); Potassium 5.3 mmol/L (3.5-5.5); Sodium 144 mmol/L (135-145); Total Bilirubin 0.2 mg/dL (0.3-1.2); Total Protein 6.3 g/dL (6.2-8.2)
== END | disposition home or self-care (01) ==
LOC: LABWHC1 07:21
PROVIDERS: ATTEND Internal Medicine Interventional Cardiology
DX: I10 Essential (primary) hypertension (principal); E78.2 Mixed hyperlipidemia
CPT/HCPCS: 36415; 80053; 80061

== ENCOUNTER 2023-12-23 13:00 | Day surgery (SDC) | payer MEDICARE, OTHER ==
[2023-12-23 13:36] VITALS: TEMP 97
[2023-12-23] MEDS: IV FLUID CONTINUATION 1,000 ML IV ONE ×3 (13:43→14:30)
[2023-12-23 14:06] VITALS: BMI 31.1
[2023-12-23] MEDS ORDERED: LIDOCAINE 1% INJ 10MG/ML (20 ML MDV) ONE (14:07)
[2023-12-23] MEDS ORDERED: MIDAZOLAM 2 MG/2 ML VIAL ONE (14:07)
[2023-12-23] MEDS ORDERED: PROPOFOL 10 MG/ML 20 ML VIAL IV ONE (14:07)
[2023-12-23] MEDS: LIDOCAINE 1% INJ 10MG/ML (20 ML MDV) SQ ONE (14:17)
[2023-12-23] MEDS: BUPIVACAINE (PF) 0.5% 30 ML VIAL SQ ONE (14:17)
[2023-12-23] MEDS: BACITRACIN ZINC 500 UNIT/GM OINT 28.4 GM TUBE TOPICAL ONE (14:21)
--- NOTE | 2023-12-23 14:29 | P.OP ---
Date of Procedure: 12/23/23 Preoperative Diagnosis: Onychogryphosis right great toe Onychomycosis right great toe Ingrown toenail great toe Postoperative Diagnosis: Same as above Procedure(s) Performed: Total temporary nail avulsion to right great toe Anesthesia: other (Local with sedation) Surgeon: Ysabel Elaine Estimated Blood Loss (ml): 0 Pathology: none sent Condition: stable Disposition: PACU Indications for Procedure: This is a 78-year-old female presenting today for evaluation and treatment of her right great toenail. She has had a very thick dystrophic nail secondary to a chemo treatment. She has had an office treatment for this without resolution. Patient is chosen surgical correction of deformity. Preoperative H&P and lab studies were reviewed and no apparent contraindications were noted to the proposed surgery. Informed consent was obtained. The patient's questions were answered to their satisfaction. No guarantees were given or implied. Description of Procedure: Under mild sedation the patient was brought into the operating room and remained on the stretcher. Following sedation the foot was cleansed with Betadine. A digital Lizette tourniquet was placed around the right great toe. Next a [place] was used to elevate the lunula as well as the nail from the matrix and nailbed. This was able to be resected smoothly. The nail was able to then be removed with a hemostat in 1 piece. No remaining spicules were noted. Rasp was applied to nail bed in order to smooth the surface and assess for any spicules which none were noted. Site was flushed with saline. Bacitracin was applied to the wound bed and a gauze and Coban dressing were applied. Digital tourniquet was removed and hyperemic response was noted to the distal tip. Patient tolerated anesthesia well. She was transferred to postoperative care with vital signs stable vascular status about tach to both feet. She will be discharged home per anesthesia today. She is to leave her dressing intact for 24 hours. She is to then soak in Epsom salt once daily for the next 2 weeks. She is to apply a thin amount of bacitracin ointment and a bandage daily.
[2023-12-23 14:53] VITALS: RESP 16
[2023-12-23] MEDS ORDERED: LACTATED RINGERS 1,000 ML IV SCH (15:00)
[2023-12-23 15:05] VITALS: BP 111/71; PULSE 69
== END 2023-12-23 15:23 | disposition home or self-care (01) ==
LOC: OR 13:00
PROVIDERS: ATTEND Podiatrist Foot & Ankle Surgery
DX: L60.0 Ingrowing nail (principal); L60.2 Onychogryphosis; B35.1 Tinea unguium; I10 Essential (primary) hypertension; G62.9 Polyneuropathy, unspecified; I42.9 Cardiomyopathy, unspecified; K21.9 Gastro-esophageal reflux disease without esophagitis; Z85.118 Personal history of other malignant neoplasm of bronchus and lung; Z88.1 Allergy status to other antibiotic agents; Z88.2 Allergy status to sulfonamides; Z88.8 Allergy status to other drugs, medicaments and biological substances; Z79.899 Other long term (current) drug therapy; Z98.890 Other specified postprocedural states
CPT/HCPCS: 11730; J2250; J2003; J2704; J0665

== ENCOUNTER 2024-01-01 13:27 | Emergency (ER) | payer MEDICARE, OTHER ==
[2024-01-01 13:32] VITALS: PULSE 78; TEMP 98
[2024-01-01] MEDS: traMADol 50 MG TAB PO STA (14:07)
--- NOTE | 2024-01-01 14:12 | ED ---
Extremity Problem HPI - General Chief complaint: Extremity Problem,Nontraumatic Stated complaint: Post-op L leg pain Time Seen by Provider: 01/01/24 13:39 Source: patient, RN notes reviewed Mode of arrival: ambulatory Limitations: no limitations - History of Present Illness Initial comments: 78-year-old female presents emergency department chief complaint of leg pain. Patient states she had a meniscus surgery by Dr. Park on . Patient states she is feeling fine Tuesday but developed some discomfort yesterday and now she states she has worsening swelling and pain in her calf. Patient is concerned about DVT. Patient denies any chest pain or shortness of breath. She is currently taking tramadol for her pain. Patient has no history of DVT - Related Data Home Medications Medication Instructions Recorded Confirmed Metoprolol Succinate (ER) [Toprol 25 mg PO DAILY 03/14/20 12/30/23 XL] Gabapentin 300 mg PO TID 10/09/20 12/30/23 L.acidoph,Paracasei, B.lactis 1 cap PO DAILY 05/12/21 12/30/23 [Probiotic] Losartan Potassium [Cozaar] 12.5 mg PO DAILY 05/12/21 12/30/23 Magnesium Chloride [Slow-Mag] 128 mg PO BID 05/12/21 12/30/23 RABEprazole SODIUM [Aciphex] 20 mg PO DAILY 07/20/21 12/30/23 aMILoride HCL 5 mg PO DAILY 07/20/21 12/30/23 Alirocumab [Praluent Pen] 150 injection SQ Q14D 07/21/21 12/30/23 Cholecalciferol [Vitamin D3 (25 25 mcg PO DAILY 03/13/23 12/30/23 Mcg = 1000 Iu)] Lysine [l-Lysine] 500 mg PO DAILY 03/13/23 12/30/23 Phentermine HCl [Adipex-P] 37.5 mg PO DAILY 03/13/23 12/30/23 Propylene Glycol [Systane Complete] 1 - 2 drop BOTH EYES QID PRN 03/13/23 12/30/23 Calcium Carbonate [Calcium] 400 mg PO DAILY 09/21/23 12/30/23 Levothyroxine Sodium [Synthroid] 137 mcg PO DAILY 12/23/23 12/30/23 Previous Rx's Medication Instructions Recorded Ondansetron Odt [Zofran Odt] 4 mg PO Q8HR PRN 3 Days #9 tab 03/16/23 Allergies Allergy/AdvReac Type Severity Reaction Status Date / Time cephalexin monohydrate Allergy Rash/Hives Verified 01/01/24 13:31 [From Keflex] hydralazine Allergy Dyspnea Verified 01/01/24 13:31 hydromorphone HCl Allergy Anaphylaxis, Verified 01/01/24 13:31 [From Dilaudid] DYSPNEA ketorolac tromethamine Allergy Rash/Hives Verified 01/01/24 13:31 [From Toradol] Qceocbm-OBF-HvX Reductase Allergy MUSCLE PAIN Verified 01/01/24 13:31 Inhibitor [Lawtnoj-Jqh-Eet Reductase Inhibitor] Sulfa (Sulfonamide Allergy Rash/Hives Verified 01/01/24 13:31 Antibiotics) tomato Allergy Rash/Hives Verified 01/01/24 13:31 tree nut Allergy Rash/Hives Verified 01/01/24 13:31 VICRYL SUTURES Allergy Mild abcess at Uncoded 01/01/24 13:31 incision site Review of Systems ROS Statement: Those systems with pertinent positive or pertinent negative responses have been documented in the HPI. ROS Other: All systems not noted in ROS Statement are negative. Past Medical History Past Medical History: Cancer, Deep Vein Thrombosis (DVT), Eye Disorder, GERD/Reflux, Hyperlipidemia, Hypertension, Osteoarthritis (OA), Pulmonary Embolus (PE), Thyroid Disorder Additional Past Medical History / Comment(s): gluten intolerance, DVT in leg @age of 12, resulted in PE, Rt breast cancer diagnosis- Jan 2020. LAST CHEMO AUGUST 2020, LAST RADIATION [place] NOV 2020., LBBB., ALOPECIA FROM CHEMO, HYPOTHYROID, HAS ONLY ONE KIDNEY-DONATED KIDNEY., HX OF PCP (PNEUMOCYSTITIS PNEUMONIA APRIL 2020)., PT HAS PORT-A-CATH, HX OF COVID X3. LEFT PORT. 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 breast reduction, abdominoplasty, right rotator cuff repair, B/L thumb arthroplasty, cataracts , Rt breast biopsy, RIGHT BREAST LUMPECTOMY NO NODE INVOLVEMENT ., PORT A CATH LT CHEST, left thumb and left ring finger arthroplasty, revison carpal tunnel left wrist., RIGHT LUNG LOBECTOMY, 3 EYE SURGERIES FOR GLAUCOMA AND 1 FOR HOLE IN [place] WITH GAS BUBBLE Past Anesthesia/Blood Transfusion Reactions: Motion Sickness, Postoperative Nausea & Vomiting (PONV) Past Psychological History: No Psychological Hx Reported Smoking Status: Former smoker - Past Family History Mother Family Medical History: Cancer Additional Family Medical History / Comment(s): Non Hodgkins Lymphoma General Exam Limitations: no limitations General appearance: alert, in no apparent distress Head exam: Present: atraumatic, normocephalic, normal inspection Eye exam: Present: normal appearance, PERRL, EOMI. Absent: scleral icterus, conjunctival injection, periorbital swelling ENT exam: Present: normal exam, normal oropharynx, mucous membranes moist Neck exam: Present: normal inspection, full ROM. Absent: tenderness, meningismus, lymphadenopathy Respiratory exam: Present: normal lung sounds bilaterally. Absent: respiratory distress, wheezes, rales, rhonchi, stridor Cardiovascular Exam: Present: regular rate, normal rhythm, normal heart sounds. Absent: systolic murmur, diastolic murmur, rubs, gallop, clicks Extremities exam: Present: pedal edema, calf tenderness, other (Leg swelling, ecchymosis [address] on the anterior knee pedal pulses palpable equal bilaterally) Course Vital Signs 01/01/24 01/01/24 13:29 14:59 Temperature 98 F Pulse Rate 78 78 Respiratory 16 18 Rate Blood Pressure 152/81 120/78 O2 Sat by Pulse 95 98 Oximetry Medical Decision Making - Medical Decision Making Was pt. sent in by a medical professional or institution (, PA, CONTROLLER INSTRUCTOR, urgent care, hospital, or skilled nursing...) When possible be specific @ -No Did you speak to anyone other than the patient for history (EMS, parent, family, police, friend...)? What history was obtained from this source @ -No Did you review nursing and triage notes (agree or disagree)? Why? @ -I reviewed and agree with nursing and triage notes Were old charts reviewed (outside hosp., previous admission, EMS record, old EKG, old radiological studies, urgent care reports/EKG's, skilled nursing records)? Report findings @ -No old charts were reviewed Differential Diagnosis (chest pain, altered mental status, abdominal pain women, abdominal pain men, vaginal bleeding, weakness, fever, dyspnea, syncope, headache, dizziness, GI bleed, back pain, seizure, CVA, palpatations, mental health, musculoskeletal)? @ -DVT, superficial thrombophlebitis, postsurgical swelling and pain EKG interpreted by me (3pts min.). @ -None X-rays interpreted by me (1pt min.). @ -None done CT interpreted by me (1pt min.). @ -None done U/S interpreted by me (1pt. min.). @ -Ultrasound venous Doppler negative for acute DVT What testing was considered but not performed or refused? (CT, X-rays, U/S, labs)? Why? @ -None What meds were considered but not given or refused? Why? @ -None Did you discuss the management of the patient with other professionals (professionals i.e. , PA, CONTROLLER INSTRUCTOR, lab, RT, psych nurse, social sciences lecturer, real estate marketing coordinator, teacher, u.s. revenue officer, field nurse case manager)? Give summary @ -No Was smoking cessation discussed for >3mins.? @ -No Was critical care preformed (if so, how long)? @ -No Were there social determinants of health that impacted care today? How? (Homelessness, low income, unemployed, alcoholism, drug addiction, transportation, low edu. Level, literacy, decrease access to med. care, [place] [facility], rehab)? @ -No Was there de-escalation of care discussed even if they declined (Discuss DNR or withdrawal of care, Hospice)? DNR status @ -No What co-morbidities impacted this encounter? (DM, HTN, Smoking, COPD, CAD, Cancer, CVA, ARF, Chemo, Hep., AIDS, mental health diagnosis, sleep apnea, morbid obesity)? @ -None Was patient admitted / discharged? Hospital course, mention meds given and route, prescriptions, significant lab abnormalities, going to OR and other pertinent info. @ -Discharge patient negative ultrasound patient has postsurgical swelling discomfort. Patient will follow-up with orthopedic surgeon. Undiagnosed new problem with uncertain prognosis? @ -No Drug Therapy requiring intensive monitoring for toxicity (Heparin, Nitro, Insulin, Cardizem)? @ -No Were any procedures done? @ -No Diagnosis/symptom? @ -Left leg pain and swelling Acute, or Chronic, or Acute on Chronic? @ -Acute Uncomplicated (without systemic symptoms) or Complicated (systemic symptoms)? @ -Uncomplicated Side effects of treatment? @ -No Exacerbation, Progression, or Severe Exacerbation? @ -No Poses a threat to life or bodily function? How? (Chest pain, USA, PA, pneumonia, PE, COPD, DKA, ARF, appy, cholecystitis, CVA, Diverticulitis, Homicidal, Linda cidal, threat to staff... and all critical care pts) @ -No Disposition Clinical Impression: Leg pain, left, Leg edema Disposition: HOME SELF-CARE Condition: Stable Instructions (If sedation given, give patient instructions): Leg Edema (ED) Additional Instructions: Please return to the Emergency Department if symptoms worsen or any other concerns. Is patient prescribed a controlled substance at d/c from ED?: No Referrals: Mariajose Russell MD [Primary Care Provider] - 1-2 days Time of Disposition: 15:01
--- NOTE | 2024-01-01 14:41 | US ---
EXAMINATION TYPE: US venous doppler duplex LE LT DATE OF EXAM: 01/01/2024 2:22 PM COMPARISON: NONE CLINICAL INDICATION: Female, 78 years old with history of pain; :Left leg pain and swelling , Pain, S welling TECHNIQUE: The lower extremity deep venous system is examined utilizing real time linear array sonog luis with graded compression, color doppler sonography, and spectral doppler. SIDE PERFORMED: Left FINDINGS: VESSELS IMAGED: Common Femoral Vein Deep Femoral Vein Greater Saphenous Vein * Femoral Vein Popliteal Vein Small Saphenous Vein * Proximal Calf Veins (* superficial vessels) Left Leg: Negative for DVT IMPRESSION: 1. Left lower extremity ultrasound negative for deep venous thrombosis [facility], , 01/01/2024 2:39 PM
[2024-01-01 15:00] VITALS: BP 120/78; RESP 18
== END 2024-01-01 15:06 | disposition home or self-care (01) ==
LOC: EC 13:27
DX: G89.18 Other acute postprocedural pain (principal); R22.42 Localized swelling, mass and lump, left lower limb; Z86.16 Personal history of COVID-19; Z87.891 Personal history of nicotine dependence; Z88.1 Allergy status to other antibiotic agents; Z88.2 Allergy status to sulfonamides; Z88.5 Allergy status to narcotic agent; Z88.8 Allergy status to other drugs, medicaments and biological substances; Z91.09 Other allergy status, other than to drugs and biological substances
CPT/HCPCS: 99284

== ENCOUNTER → 2024-03-30 | Outpatient (CLI) | payer MEDICARE, OTHER ==
[2024-03-30 11:04] LABS: ALT 16 U/L (8-44); AST 22 U/L (13-35); Albumin 4.1 g/dL (3.8-4.9); Albumin/Globulin Ratio 1.78 Ratio (1.60-3.17); Alkaline Phosphatase 100 U/L (41-126); Blood Urea Nitrogen 15.4 mg/dL (9.0-27.0); Calcium 9.3 mg/dL (8.7-10.3); Carbon Dioxide 25.6 mmol/L (21.6-31.8); Chloride 109 mmol/L (96-109); Globulin 2.3 g/dL (1.6-3.3); Glucose 112 mg/dL (70-110); LDL Cholesterol,Calculated 58.2 mg/dL (0.0-131.0); Magnesium 1.6 mg/dL (1.5-2.4); Phosphorus 3.3 mg/dL (2.4-5.1); Potassium 4.9 mmol/L (3.5-5.5); Sodium 143 mmol/L (135-145); Total Bilirubin 0.3 mg/dL (0.3-1.2); Total Protein 6.4 g/dL (6.2-8.2); VLDL Calculation 19.34 mg/dL (5.00-40.00)
[2024-03-30 11:56] LABS: Appearance,Urine Cloudy (Clear); Bilirubin,Urine Negative (Negative); Blood,Urine Negative (Negative); Color,Urine Yellow (Yellow); Ketones,Urine Negative (Negative); Nitrite,Urine Negative (Negative); PH, Urine 5.5; Urobilinogen,Urine 0.2 E.U./DL
[2024-03-30 12:00] LABS: Microalbumin Creatinine Ratio <10 mg/g Cr (0-30)
[2024-03-30 12:03] LABS: Bacteria,Urine 2+ (None Seen)
[2024-03-30 13:44] LABS: HGB 12.6 g/dL (12.0-15.0); MCH 31.3 pg (27.0-32.0); MCHC 31.5 g/dL (32.0-37.0); MCV 99.5 FL (80.0-97.0); Mean Platelet Volume 10.2 FL (9.5-12.2); NRBC Per 100 WBC 0 X 10*3/uL (0.00-0.01); Platelet Count 301 X 10*3/uL (140-440); RBC 4.02 X 10*6/uL (4.10-5.20); WBC 9.09 X 10*3/uL (4.50-10.00)
== END | disposition home or self-care (01) ==
LOC: LABWHC1 07:01
PROVIDERS: ATTEND Internal Medicine Interventional Cardiology
DX: N18.32 Chronic kidney disease, stage 3b (principal); D63.1 Anemia in chronic kidney disease; E78.2 Mixed hyperlipidemia; E83.42 Hypomagnesemia; N39.0 Urinary tract infection, site not specified; R80.9 Proteinuria, unspecified
CPT/HCPCS: 36415; 80053; 80061; 81001; 82043; 82570; 83735; 84100; 85027

== ENCOUNTER → 2024-06-04 | Outpatient (CLI) | payer MEDICARE, OTHER ==
[2024-06-04 18:54] LABS: Appearance,Urine Clear (Clear); Bilirubin,Urine Negative (Negative); Blood,Urine Negative (Negative); Color,Urine Yellow (Yellow); Ketones,Urine Negative (Negative); Nitrite,Urine Negative (Negative); PH, Urine 5.5; Specific Gravity,Urine 1.008 (1.001-1.030); Urobilinogen,Urine 0.2 E.U./DL
[2024-06-04 18:55] LABS: Blood Urea Nitrogen 14.5 mg/dL (9.0-27.0); Calcium 9.8 mg/dL (8.7-10.3); Carbon Dioxide 26.5 mmol/L (21.6-31.8); Chloride 107 mmol/L (96-109); Glucose 89 mg/dL (70-110); HCT 41.2 % (37.2-46.3); MCH 30.8 pg (27.0-32.0); MCHC 31.6 g/dL (32.0-37.0); MCV 97.6 FL (80.0-97.0); Magnesium 1.6 mg/dL (1.5-2.4); Mean Platelet Volume 9.6 FL (9.5-12.2); NRBC Per 100 WBC 0 X 10*3/uL (0.00-0.01); Phosphorus 3.4 mg/dL (2.4-5.1); Platelet Count 292 X 10*3/uL (140-440); Potassium 5.1 mmol/L (3.5-5.5); RBC 4.22 X 10*6/uL (4.10-5.20); RDW 12.4 % (11.5-14.5); Sodium 141 mmol/L (135-145); WBC 8.99 X 10*3/uL (4.50-10.00)
[2024-06-04 19:01] LABS: Microalbumin Creatinine Ratio <27 mg/g Cr (0-30)
[2024-06-04 19:44] LABS: Bacteria,Urine None Seen (None Seen)
== END | disposition home or self-care (01) ==
LOC: LABWHC1 13:29
PROVIDERS: ATTEND Nurse Practitioner Acute Care
DX: N18.32 Chronic kidney disease, stage 3b (principal); D63.1 Anemia in chronic kidney disease; N39.0 Urinary tract infection, site not specified; R39.0 Extravasation of urine
CPT/HCPCS: 36415; 80048; 81001; 82043; 82570; 83735; 84100; 85027

== ENCOUNTER → 2024-08-14 | Outpatient (CLI) | payer MEDICARE, OTHER ==
--- NOTE | 2024-08-14 12:46 | MM ---
Reason for Exam: Additional evaluation requested from prior study. Last screening mammogram was performed 12 month(s) ago. Patient History: Menarche at age 11. First Full-Term at age 24. Left ovary removed at age 51. Right ovary removed at age 51. Hysterectomy at age 51. Postmenopausal. Patient has history of breast feeding. Breast cancer, right, age 74. Previous chest radiation therapy at age 74. Previous chemotherapy at age 74. Estrogen for 7 years until age 73. 2015, Bilateral Reduction. 10/13/2020, Lumpectomy on the Right side. 10/13/2020, Malignant Core Biopsy on the right side. 02/18/2020, Malignant Core Biopsy on the right side. 02/2020, Chemotherapy. 11/2020, Radiation Therapy. Maternal aunt had breast cancer. Prior Study Comparison: 06/08/2021 Bilateral Diagnostic Mammogram, [facility]. 02/10/2023 Left MG 3D diag mammo w/cad LT, [facility]. 08/15/2023 Bilateral MG 3D diag mammo w/cad ANIKA, [facility]. Tissue Density: There are scattered areas of fibroglandular density. Findings: Analyzed By CAD. Patient status post bilateral reduction. A couple benign oil cyst calcifications are present on the left. Postsurgical and posttreatment changes redemonstrated on the right with a upper-outer quadrant posterior surgical scar and multiple surgical clips. At the site of scar, there are new grouped calcifications which becomes even more subtle and less apparent on magnification. Suspect early fat necrosis calcifications. 6 month follow-up recommended. Otherwise, no significant change. Overall Assessment: Probably benign, BI-RAD 3 Management: Diagnostic Mammogram of the right breast in 6 months. Results were given to the patient verbally at the time of exam. Patient should continue monthly self-breast exams. A clinical breast exam by your physician is recommended on an annual basis. This exam should not preclude additional follow-up of suspicious palpable abnormalities. [facility], , 08/14/2024 12:34 PM. Electronically signed and approved by: Laurie Cho M.D. Radiologist
--- NOTE | 2024-08-14 13:08 | USB ---
Reason for Exam: Clinical finding. Patient History: Menarche at age 11. First Full-Term at age 24. Left ovary removed at age 51. Right ovary removed at age 51. Hysterectomy at age 51. Postmenopausal. Patient has history of breast feeding. Breast cancer, right, age 74. Previous chest radiation therapy at age 74. Previous chemotherapy at age 74. Estrogen for 7 years until age 73. 2015, Bilateral Reduction. 10/13/2020, Lumpectomy on the Right side. 10/13/2020, Malignant Core Biopsy on the right side. 02/18/2020, Malignant Core Biopsy on the right side. 02/2020, Chemotherapy. 11/2020, Radiation Therapy. Maternal aunt had breast cancer. Technique: Method: Targeted. Prior Study Comparison: 06/09/2022 Bilateral MG 3D diag mammo w/cad ANIKA, [facility]. 02/10/2023 Left MG 3D diag mammo w/cad LT, [facility]. 08/15/2023 Bilateral MG 3D diag mammo w/cad NAIKA, [facility]. Findings: The upper outer quadrant of the right breast, the axilla of the right breast and the retroareolar of the right breast were scanned. Ultrasound targeted to the site of patient's pain upper quadrant 9:00 to 12:00. Additional scanning of the subareolar region and axilla. At the 9:00 position, 5 cm from nipple, there is a hypoechoic, oval, possibly cystic area measuring 1.6 x 1.0 x 2.3 cm. This can be reassessed in 6 months. Overall Assessment: Probably benign, BI-RAD 3 Management: Diagnostic Mammogram of the right breast in 6 months. Diagnostic Breast Ultrasound of the right breast in 6 months. Further clinical management of patient's right breast pain. A clinical breast exam by your physician is recommended on an annual basis and results should be correlated with mammographic findings. This exam should not preclude additional follow-up of suspicious palpable abnormalities. Results were given to the patient verbally at the time of exam. [facility], , 08/14/2024 1:05 PM. Electronically signed and approved by: Laurie Cho M.D. Radiologist
== END | disposition home or self-care (01) ==
LOC: RADMAMWWP 11:32
PROVIDERS: ATTEND Radiology Radiation Oncology
DX: C34.11 Malignant neoplasm of upper lobe, right bronchus or lung (principal); N63.10 Unspecified lump in the right breast, unspecified quadrant; C50.411 Malignant neoplasm of upper-outer quadrant of right female breast; Z98.890 Other specified postprocedural states; Z90.710 Acquired absence of both cervix and uterus; Z17.1 Estrogen receptor negative status [ER-]; Z78.0 Asymptomatic menopausal state; Z80.3 Family history of malignant neoplasm of breast
CPT/HCPCS: 77062; 77066